=== PATIENT | female | born 1960 | race Caucasian/White ===

== ENCOUNTER → 2016-10-24 | Day surgery (SDC) | payer OTHER ==
[~2016-10-24] MED LIST: ACETAMINOPHEN 1000 MG/100 ML VIAL IV ONE; ACYC200C66 PO; ACYC5OIN4 TOPICAL; APREPITANT 40 MG CAP ONE; ARTIFICIAL TEARS OPTH OINT 3.5 APPLIC/3.5 GM TUBO ONE; BALANCED SALT SOLN OPHT IRRIG 15 ML BTL ONE; CIMZ200K SQ; DOXY100C PO; HYDR-3516 PO; HYDR200T3 PO; IBUP800T23 PO; LACTATED RINGER'S 1000 ML INJ 1,000 ML ONE; LIDOCAINE 1%/EPINEPHrine 1:100,000 SOLN 20 ML VIAL ONE; LIDOCAINE 2%/EPINEPHrine PF 1:200,000 20ML SDV ONE; LISD70 PO; METR500T10 PO; MIDAZOLAM HCL 2 MG/2 ML VIAL ONE; NEOMYCIN/POLYMYXIN/BACITRACIN OINT 15 GM TUBE ONE; NEOMYCIN/POLYMYXIN/HYDROCORT OTIC SUSP 10 ML BTL ONE; ONDANSETRON HCL 4 MG/2 ML VIAL IV PUSH ONE; PROPOFOL 200 MG/20 ML AMP IV ONE; SODIUM CHLORIDE 0.9% 250 ML ADDBAG IV ONE; VANCOMYCIN HCL 1000 MG VIAL ONE; diphenhydrAMINE HCL 50 MG/ML VIAL ONE
--- NOTE | 2016-10-24 09:54 | TN ---
cc: GARRET BRITO M.D. DATE OF SURGERY 10/24/2016 PREOPERATIVE DIAGNOSIS Facial aging POSTOPERATIVE DIAGNOSIS Facial aging PROCEDURE Cervicofacial rhytidectomy SURGEON Garret Brito MD ANESTHESIA LMA general plus total of 170 cc of diluted 1% lidocaine with epinephrine. ESTIMATED BLOOD LOSS Minima COMPLICATIONS None PROCEDURE She was properly consented, marked and properly anesthetized. The skin was sterilized with Microcyn, sterile draping applied. Local anesthetic was infused in the head and neck. pre and postauricular incisions were carried out down proximal to the preauricular area as well as the anterior border of the subplatysmal area and the base of the neck. SMAS plication was done in a true vertical fashion utilizing a running locking 4-0 Mersilene suture. Lateral platysmaplasty took place utilizing suture material. Excessive skin was removed with minimal tension after applying Chandana and the preauricular and postauricular wounds were closed in the following fashion. 5-0 Monocryl suture with fast-absorbing gut and 3-0 Monocryl sutures and surgical catherine on the postauricular area as well. Overall, the patient tolerated the procedure well. At the beginning of the procedure, I also injected one syringe of Voluma in the lip and in the perioral area. She tolerated the procedure well. We dressed with Ivonne and Phoenix, as well as netting. She was awakened and extubated in the operating room, transferred back to the postanesthesia care unit in stable condition. No complications appreciated. The patient tolerated the procedure fairly well. MD GILBERTO Tejeda/BAILEE /9:44 AM /9:51 AM
== END | disposition home or self-care (01) ==
LOC: ESDC 06:16
PROVIDERS: ATTEND Plastic Surgery
DX: Z41.1 Encounter for cosmetic surgery (principal)
CPT/HCPCS: 00300; 15828; J0131; J1200; J2250; J2405; J3010; J3370; J7120; J8501

== ENCOUNTER 2016-11-30 14:03 | Inpatient (IN) | payer OTHER ==
[~2016-11-30] VITALS: Ht 160 cm; Wt 90.2 kg
[~2016-11-30 14:03] MED LIST changes: -ACETAMINOPHEN 1000 MG/100 ML VIAL IV ONE; -APREPITANT 40 MG CAP ONE; -ARTIFICIAL TEARS OPTH OINT 3.5 APPLIC/3.5 GM TUBO ONE; -BALANCED SALT SOLN OPHT IRRIG 15 ML BTL ONE; -LACTATED RINGER'S 1000 ML INJ 1,000 ML ONE; -LIDOCAINE 1%/EPINEPHrine 1:100,000 SOLN 20 ML VIAL ONE; -LIDOCAINE 2%/EPINEPHrine PF 1:200,000 20ML SDV ONE; -MIDAZOLAM HCL 2 MG/2 ML VIAL ONE; -NEOMYCIN/POLYMYXIN/BACITRACIN OINT 15 GM TUBE ONE; -NEOMYCIN/POLYMYXIN/HYDROCORT OTIC SUSP 10 ML BTL ONE; -ONDANSETRON HCL 4 MG/2 ML VIAL IV PUSH ONE; -PROPOFOL 200 MG/20 ML AMP IV ONE; -SODIUM CHLORIDE 0.9% 250 ML ADDBAG IV ONE; -VANCOMYCIN HCL 1000 MG VIAL ONE; -diphenhydrAMINE HCL 50 MG/ML VIAL ONE
[2016-11-30 14:11] VITALS: BP 160/74; PULSE 81; RESP 20; TEMP 98.3; O2SAT 99
[2016-11-30] MEDS ORDERED: ONDANSETRON HCL 4 MG/2 ML VIAL IV PUSH ONE ×2 (14:15→15:15)
--- NOTE | 2016-11-30 14:20 | PD ---
HPI Chief Complaint: Hip Injury Time Seen by Provider: 14:10 Travel History International Travel<30 days: No Contact w/Intl Traveler<30days: No Traveled to known affect area: No History of Present Illness HPI 56-year-old female with chief complaint of right hip pain. Patient slipped and fell to the ground while standing in the back of the truck. She reports she fell onto her right side causing immediate pain within the right hip. Patient was unable to stand up. She called 911 for assistance. In route EMS administered 10 mg of morphine for pain control. Patient denies head injury or loss of consciousness. She denies headache, neck pain, chest pain, abdominal pain, numbness/tingling/weakness in the extremity. She reports normal sensation within the right lower extremity. [facility] Past Medical History ADD: Yes Arthritis: Yes (RA) Autoimmune Disease: Yes (LUPUS) Depression: Yes Cancer: No Cardiovascular Problems: No Diminished Hearing: No Endocrine: No Gastrointestinal Disorders: No Genitourinary: No Immune Disorder: Yes Implanted Vascular Access Dvce: No Neurologic: Yes Reproductive: No Respiratory: No ?: Not Past Surgical History Abdominal Surgery: Yes (APPY) Appendectomy: Yes Gynecologic Surgery: Yes (ABLATION, PARTIAL HYSTERECTOMY) Hysterectomy: Yes (PARTIAL) Other Surgery: Yes (uterine ablasion ) Social History Alcohol Use: Yes ("COUPLE MIXED DRINKS PER WEEK") Tobacco Use: No (E-CIG) Substance Use: No Allergies-Medications (Allergen,Severity, Reaction): Coded Allergies: Penicillin (Verified Allergy, Intermediate, "HEAD THROBS", 11/30/16) Reported Meds & Prescriptions Reported Meds & Active Scripts Active Vyvanse (Lisdexamfetamine Dimesylate) 70 Mg Cap 70 Mg PO DAILY Reported Hydroxychloroquine (Hydroxychloroquine Sulfate) 200 Mg Tab 200 Mg PO BID Takw with food Review of Systems Except as stated in HPI: all other systems reviewed are Neg General / Constitutional: No: Fever Eyes: No: Visual changes HENT: No: Headaches Cardiovascular: No: Chest Pain or Discomfort Respiratory: No: Shortness of Breath Gastrointestinal: No: Abdominal Pain Genitourinary: No: Dysuria Musculoskeletal: Positive: Pain, Other (right hip pain) Physical Exam Narrative GENERAL: Alert female lying on stretcher, mild distress due to pain. SKIN: Focused skin assessment warm/dry. HEAD: Atraumatic. Normocephalic. EYES: Pupils equal and round. No scleral icterus. No injection or drainage. ENT: No nasal bleeding or discharge. Mucous membranes pink and moist. NECK: Trachea midline. No JVD. CARDIOVASCULAR: Regular rate and rhythm. No murmur appreciated. RESPIRATORY: No accessory muscle use. Clear to auscultation. Breath sounds equal bilaterally. GASTROINTESTINAL: Abdomen soft, non-tender, nondistended. Hepatic and splenic margins not palpable. MUSCULOSKELETAL: No obvious deformities. No clubbing. No cyanosis. No edema. TTP right lateral hip. Pelvis is stable. 2+ pedal pulse, normal sensation of the dorsal aspect of foot, brisk cap refill. NEUROLOGICAL: Awake and alert. No obvious cranial nerve deficits. Motor grossly within normal limits. Normal speech. PSYCHIATRIC: Appropriate mood and affect; insight and judgment normal. Data Data Last Documented VS Vital Signs Date Time Temp Pulse Resp B/P Pulse Ox O2 Delivery O2 Flow Rate FiO2 11/30/16 18:55 20 11/30/16 16:09 68 146/67 100 Room Air 11/30/16 14:11 98.3 Orders Ondansetron Inj (Zofran Inj) (11/30/16 14:15) Hip, Uni(Ap&Lat) W Ap Pelvis (11/30/16 14:15) Iv Access Insert/Monitor (11/30/16 14:15) Oximetry (11/30/16 14:15) Sodium Chloride 0.9% Flush (Ns Flush) (11/30/16 14:15) Ondansetron Inj (Zofran Inj) (11/30/16 15:15) Metoclopramide Inj (Reglan Inj) (11/30/16 15:30) Femur (Ap & Lat/2vws) (11/30/16 ) Ct Hip W/O Contrast (11/30/16 ) Hydromorphone Pf Inj (Dilaudid Pf Inj) (11/30/16 16:15) Promethazine Inj (Phenergan Inj) (11/30/16 18:15) Complete Blood Count With Diff (11/30/16 18:10) Basic Metabolic Panel (Bmp) (11/30/16 18:10) Prothrombin Time / Inr (Pt) (11/30/16 18:10) Act Partial Throm Time (Ptt) (11/30/16 18:10) Ct Brain W/O Iv Contrast(Rout) (11/30/16 18:10) Sodium Chloride 0.9% Flush (Ns Flush) (11/30/16 18:15) Ua Includes Microscopic (11/30/16 18:11) Urinary Catheter Insert/Apply (11/30/16 18:11) Chest, Single Ap (11/30/16 ) MDM Medical Decision Making Medical Screen Exam Complete: Yes Emergency Medical Condition: Yes Differential Diagnosis hip fx, pelvic fx, contusion, Narrative Course 56-year-old female fell off the back of truck onto her right hip. Patient has chief complaint of right hip pain. Patient was brought in by EMS she was given 10 mg of morphine in route. Patient's physical exam reveal a neurovascularly intact extremity. No obvious deformity. X-ray of the right hip and pelvis are negative for fracture. During patient's stay she had multiple episodes of vomiting. She was given Zofran and Reglan. X-ray of the right hip and pelvis reveal no fracture the patient continued to have moderate to severe pain. CT scan of pelvis and right hip ordered. CT PELVIS/R HIP: 1.Acute fracture of the right sacrum 2. Nondisplaced fracture of the anterior column of the right acetabulum and right inferior pubic ramus and right symphysis pubis. 3. Nondisplaced fracture of the right transverse process of L5. Spoke with Dr. Becerril it service continuity supervisor ortho regarding patients fx. he asked the patient be kept nothing by mouth and admit her to medicine. Spoke with family residents Dr. Marti who agrees to patient admission. Diagnosis Primary Impression: Fracture of sacrum Qualified Code: S32.10XA - Closed fracture of sacrum, unspecified portion of sacrum, initial encounter Additional Impressions: Right acetabular fracture Qualified Code: S32.434A - Closed nondisplaced fracture of anterior column of right acetabulum, initial encounter L5 vertebral fracture Qualified Code: S32.059A - Closed fracture of fifth lumbar vertebra, unspecified fracture morphology, initial encounter Admitting Information Admitting Physician Requests: Admit Referrals: Primary Care Physician Disposition: 01 DISCHARGE HOME Condition: Stable Lola Moreno Nov 30, 2016 14:20
[2016-11-30] MEDS: SODIUM CHLORIDE 0.9% FLUSH 10 ML FLUSH IVF PRN ×3 (14:30→15:46)
[2016-11-30 14:37] VITALS: O2SAT 100
[2016-11-30 14:38] VITALS: BP 160/74; PULSE 76; RESP 24; O2SAT 100
--- NOTE | 2016-11-30 15:24 | RADRPT ---
EXAM DATE/TIME: 11/30/2016 15:00 [facility] COMPARISON: No previous studies available for comparison. INDICATIONS : Right hip pain. Patient fell off a flat-bed truck. MEDICAL HISTORY : None. SURGICAL HISTORY : None. ENCOUNTER: Initial ACUITY: 1 day PAIN SCORE: 10/10 LOCATION: Right hip. FINDINGS: No acute fracture or dislocation is noted. Mild degenerative changes and scoliosis of the lower lumb ar spine are noted. CONCLUSION: 1. No acute fracture or dislocation. 2. Mild degenerative changes and scoliosis of the lower lumbar spine. Truman Cohn MD on November 30, 2016 at 15:19 Board Certified Radiologist. This report was verified electronically.
[2016-11-30] MEDS ORDERED: METOCLOPRAMIDE HCL 10 MG/2 ML VIAL IV PUSH ONE (15:30)
[2016-11-30 16:09] VITALS: BP 146/67; PULSE 68; RESP 18; O2SAT 100
[2016-11-30] MEDS ORDERED: HYDROmorphone HCL PF 1 MG/ML VIAL IV PUSH ONE (16:15)
--- NOTE | 2016-11-30 17:15 | PD ---
Data Data Last Documented VS Vital Signs Date Time Temp Pulse Resp B/P Pulse Ox O2 Delivery O2 Flow Rate FiO2 11/30/16 16:09 68 18 146/67 100 Room Air 11/30/16 14:11 98.3 Orders Ondansetron Inj (Zofran Inj) (11/30/16 14:15) Hip, Uni(Ap&Lat) W Ap Pelvis (11/30/16 14:15) Iv Access Insert/Monitor (11/30/16 14:15) Oximetry (11/30/16 14:15) Sodium Chloride 0.9% Flush (Ns Flush) (11/30/16 14:15) Ondansetron Inj (Zofran Inj) (11/30/16 15:15) Metoclopramide Inj (Reglan Inj) (11/30/16 15:30) Femur (Ap & Lat/2vws) (11/30/16 ) Ct Hip W/O Contrast (11/30/16 ) Hydromorphone Pf Inj (Dilaudid Pf Inj) (11/30/16 16:15) MDM Supervised Visit with JAMES: Yes Narrative Course The history, exam, and medical decision-making in the associated midlevel provider note were completed with my assistance. I reviewed and agree with the findings presented. I attest that I had a [id number] encounter with the patient on the same day, and personally performed and documented my assessment and findings in the medical record. *My assessment and Findings: This is a 56-year-old female who presents the emergency department having fallen off of the back of a trailer and landed on her right hip. She has severe pain in the right hip. She is able to range the hip without much difficulty but she's in the emergency department vomiting and since her pain is 10 out of 10 despite analgesics and multiple doses of antiemetics. Given her intractable pain a CT and an x-ray of the femur were ordered. These will be followed up. If there reassuring I think the patient can be discharged home and likely suffered of a significant contusion. Diagnosis Primary Impression: Contusion, hip and thigh Qualified Code: S70.01XA - Contusion, hip and thigh, right, initial encounter Referrals: Primary Care Physician Additional Instruction: Take the pain medication as prescribed. Avoid heavy lifting or strenuous activity. Follow-up the primary care doctor. Return to the emergency department if he developed new or worsening symptoms. Disposition: 01 DISCHARGE HOME Condition: Stable Ivet Ruiz MD Nov 30, 2016 17:15
--- NOTE | 2016-11-30 17:34 | RADRPT ---
EXAM DATE/TIME: 11/30/2016 17:14 [facility] COMPARISON: CT HIP RIGHT W/O CONTRAST, November 30, 2016, 16:54. INDICATIONS : Right hip pain. Patient fell off a flat-bed truck. MEDICAL HISTORY : SURGICAL HISTORY : None. ENCOUNTER: Subsequent ACUITY: 1 day PAIN SCORE: 10/10 LOCATION: Right hip. FINDINGS: Two view examination of the right femur demonstrates no evidence of fracture or dislocation. Bony mi neralization is normal. The soft tissue structures are intact. CONCLUSION: No fracture seen. Bill Browning MD on November 30, 2016 at 17:30 Board Certified Radiologist. This report was verified electronically.
--- NOTE | 2016-11-30 17:46 | RADRPT ---
EXAM DATE/TIME: 11/30/2016 16:54 [facility] COMPARISON: HIP RIGHT (AP&LAT 2/3VWS) W AP PELVIS, November 30, 2016, 15:00. INDICATIONS : Fall from a moving truck today, right hip pain. RADIATION DOSE: 62.11 CTDIvol (mGy) MEDICAL HISTORY : lupus SURGICAL HISTORY : Hysterectomy. Appendectomy. ENCOUNTER: Initial ACUITY: 1 day PAIN SCALE: 9/10 LOCATION: Right hip TECHNIQUE: Volumetric scanning of the hip was performed. Using automated exposure control and adjustment of the mA and/or kV according to patient size, radiation dose was kept as low as reasonably achievable to o btain optimal diagnostic quality images. DICOM format image data is available electronically for rev iew and comparison. FINDINGS: There is evidence of acute fractures involving the right sacrum with a mildly displaced fracture frag ment involving the right anterior cortex. There is also evidence of acute nondisplaced fractures inv olving the anterior column of the right acetabulum as well as the right inferior pubic ramus. An acu te nondisplaced fracture involving the right symphysis pubis is also noted. There is also an acute f racture involving the right transverse process of L5. CONCLUSION: 1. Acute fracture involving the right sacrum with minimally displaced fracture fragment anteriorly. 2. Acute nondisplaced fractures involving the anterior column of the right acetabulum as well as the right inferior pubic ramus and right symphysis pubis. 3. Acute nondisplaced fracture involving the right transverse process of L5. Truman Cohn MD on November 30, 2016 at 17:28 Board Certified Radiologist. This report was verified electronically.
[2016-11-30] MEDS ORDERED: SODIUM CHLORIDE 0.9% FLUSH 10 ML FLUSH IVF PRN (18:15)
[2016-11-30] MEDS ORDERED: PROMETHAZINE INJ 25 MG/ML VIAL IM ONE (18:15)
--- NOTE | 2016-11-30 18:50 | RADRPT ---
EXAM DATE/TIME: 11/30/2016 18:33 [facility] COMPARISON: No previous studies available for comparison. INDICATIONS : Trauma; fall. RADIATION DOSE: 46.84 CTDIvol (mGy) MEDICAL HISTORY : Lupus. SURGICAL HISTORY : uterine ablation ENCOUNTER: Initial ACUITY: 1 day PAIN SCALE: 8/10 LOCATION: cranial TECHNIQUE: Multiple contiguous axial images were obtained of the head. Using automated exposure control and adj ustment of the mA and/or kV according to patient size, radiation dose was kept as low as reasonably a chievable to obtain optimal diagnostic quality images. DICOM format image data is available electro nically for review and comparison. FINDINGS: CEREBRUM: The ventricles are normal for age. No evidence of midline shift, mass lesion, hemorrhage or acute in farction. No extra-axial fluid collections are seen. POSTERIOR FOSSA: The cerebellum and brainstem are intact. The 4th ventricle is midline. The cerebellopontine angle i s unremarkable. EXTRACRANIAL: The visualized portion of the orbits is intact. SKULL: The calvaria is intact. No evidence of skull fracture. CONCLUSION: No acute disease. Truman Cohn MD on November 30, 2016 at 18:47 Board Certified Radiologist. This report was verified electronically.
[2016-11-30 19:04] VITALS: BP 165/70; PULSE 68; RESP 18; O2SAT 100
--- NOTE | 2016-11-30 19:09 | RADRPT ---
EXAM DATE/TIME: 11/30/2016 18:42 [facility] COMPARISON: No previous studies available for comparison. INDICATIONS : Trauma, Short of Breath MEDICAL HISTORY : Lupus. SURGICAL HISTORY : Uterine Ablation ENCOUNTER: Initial ACUITY: 1 day PAIN SCORE: 0/10 LOCATION: Bilateral chest FINDINGS: Frontal view of the chest demonstrates a 12 mm lobular smooth margin nodule projected over the right lower lung. This cannot be further localized on single view. Left lung is clear. The heart is norm al size. No evidence pneumothorax. Osseous structures are grossly intact. CONCLUSION: 12 mm nodule projected over the right lower lung. Recommend further characterization with CT thorax. Bill Browning MD on November 30, 2016 at 19:06 Board Certified Radiologist. This report was verified electronically.
--- NOTE | 2016-11-30 19:10 | PD ---
Physical Exam Narrative Patient was seen and examined with my assistant art director Data Data Last Documented VS Vital Signs Date Time Temp Pulse Resp B/P Pulse Ox O2 Delivery O2 Flow Rate FiO2 11/30/16 19:04 68 18 165/70 100 Room Air 11/30/16 14:11 98.3 Orders Ondansetron Inj (Zofran Inj) (11/30/16 14:15) Hip, Uni(Ap&Lat) W Ap Pelvis (11/30/16 14:15) Iv Access Insert/Monitor (11/30/16 14:15) Oximetry (11/30/16 14:15) Sodium Chloride 0.9% Flush (Ns Flush) (11/30/16 14:15) Ondansetron Inj (Zofran Inj) (11/30/16 15:15) Metoclopramide Inj (Reglan Inj) (11/30/16 15:30) Femur (Ap & Lat/2vws) (11/30/16 ) Ct Hip W/O Contrast (11/30/16 ) Hydromorphone Pf Inj (Dilaudid Pf Inj) (11/30/16 16:15) Promethazine Inj (Phenergan Inj) (11/30/16 18:15) Complete Blood Count With Diff (11/30/16 18:10) Basic Metabolic Panel (Bmp) (11/30/16 18:10) Prothrombin Time / Inr (Pt) (11/30/16 18:10) Act Partial Throm Time (Ptt) (11/30/16 18:10) Ct Brain W/O Iv Contrast(Rout) (11/30/16 18:10) Sodium Chloride 0.9% Flush (Ns Flush) (11/30/16 18:15) Ua Includes Microscopic (11/30/16 18:11) Urinary Catheter Insert/Apply (11/30/16 18:11) Chest, Single Ap (11/30/16 ) Admit Order (Ed Use Only) (11/30/16 19:05) [facility] Supervised Visit with JAMES: Yes Diagnosis Primary Impression: Fracture of sacrum Qualified Code: S32.10XA - Closed fracture of sacrum, unspecified portion of sacrum, initial encounter Additional Impressions: Right acetabular fracture Qualified Code: S32.434A - Closed nondisplaced fracture of anterior column of right acetabulum, initial encounter L5 vertebral fracture Qualified Code: S32.059A - Closed fracture of fifth lumbar vertebra, unspecified fracture morphology, initial encounter Referrals: Primary Care Physician Additional Instruction: Take the pain medication as prescribed. Avoid heavy lifting or strenuous activity. Follow-up the primary care doctor. Return to the emergency department if he developed new or worsening symptoms. Disposition: 01 DISCHARGE HOME Condition: Stable Karson Santamaria MD Nov 30, 2016 19:10
--- NOTE | 2016-11-30 19:17 | HHI.HP ---
[facility] Service Family Medicine Primary Care Physician Gage Sanchez MD Admission Diagnosis PELVIC FXS, L5 TRANSVERSE PROCESS FX Diagnoses: International Travel<30 Days: No Contact w/Intl Traveler<30days: No Known Affected Area: No History of Present Illness Salvador Ramos is a very pleasant 56 year old woman brought to the ED via EMS earlier today following a fall occurring ~14:00 today. She states she was standing in the trunk of a truck unloading equipment when she lost her balance and fell out of the truck onto the ground. She states she landed on her right hip and denies trauma to other parts of her body. She had immediate pain at the right hip. She denies head trauma or loss of consciousness. Her son states he did notice that she did not have anywhere to brace herself with the fall so her head may have hit the truck tire after landing on the ground. She states her pain was very significant and previously a 10/10. She was given 10 mg of morphine en route to the ED as well as 0.5 mg IV Dilaudid here in the ED. She states her pain is now 5-6/10 at the right hip. Denies pain elsewhere. Denies headaches, confusion, dizziness. She denies pain or weakness in any of her extremities. She is also reporting significant nausea. She was given Zofran 4 mg IV x2, Reglan 10 mg IV, and Phenergan 25 mg IM in the ED and reports her nausea is much improved but still present. She denies abdominal pain. A noncontrast head CT was obtained on presentation which shows no acute process. (Daniel Adkins MD R1) Review of Systems Constitutional: DENIES: Fever, Chills Eyes: DENIES: Blurred vision, Diplopia, Double Vision Respiratory: DENIES: Cough, Shortness of breath Cardiovascular: DENIES: Chest pain, Palpitations, Lower Extremity Edema Gastrointestinal: COMPLAINS OF: Nausea, DENIES: Abdominal pain Neurologic: DENIES: Headache, Localized weakness, Speech Problems (Daniel Adkins MD R1) Past Family Social History Past Medical History Rheumatoid arthritis SLE ADHD Depression Osteoarthritis Past Surgical History Partial hysterectomy Appendectomy Cervical ablation Bilateral foot surgery (Daniel Adkins MD R1) Allergies: Coded Allergies: Penicillin (Verified Allergy, Intermediate, "HEAD THROBS", 11/30/16) Family History Father: diabetes Mother: lung cancer Social History Tobacco: quit about 10 years ago, reports 30 year history of smoking previously Etoh intake: 0-2 drinks per day, usually wine Illicit drug use: denies (Daniel Adkins MD R1) Physical Exam Vital Signs Vital Signs Date Time Temp Pulse Resp B/P Pulse Ox O2 Delivery O2 Flow Rate FiO2 11/30/16 19:04 68 18 165/70 100 Room Air 11/30/16 18:55 20 11/30/16 16:09 68 18 146/67 100 Room Air 11/30/16 14:38 76 24 160/74 100 Room Air 11/30/16 14:37 100 Room Air 11/30/16 14:11 98.3 81 20 160/74 99 Physical Exam GENERAL: NAD, lying comfortably in bed NEURO: Alert. Normal speech. buttonhole tacker grossly intact. Motor grossly normal. SKIN: Warm and dry. No rashes or erythema. No bruising around hips. TTP around lateral aspect of right hip. No obvious deformities. HEAD: Normocephalic. Atraumatic. EYES: PERRL. EOMI. No scleral icterus. No injection or drainage. ENT: No nasal drainage. Moist mucous membranes. No oral ulcers or lesions. NECK: Supple, trachea midline. No JVD. CARDIOVASCULAR: Regular rate and rhythm without m/r/g. Peripheral pulses 2+. Cap refill < 2 seconds. RESPIRATORY: Breath sounds clear to auscultation and equal bilaterally, without w/r/r. No accessory muscle use. GASTROINTESTINAL: Abdomen soft, nontender, nondistended, normal BS. No organomegaly or masses. No rebound tenderness. No guarding. MUSCULOSKELETAL: No lower extremity edema. Normal range of motion. (Daniel Adkins MD R1) Imaging Last [address] 11/30/16 1810 Signed Impressions: Service Date/Time: Wednesday, November 30, 2016 18:33 - CONCLUSION: No acute disease. Truman Cohn MD Hip and Pelvis X-Ray 11/30/16 1415 Signed Impressions: Service Date/Time: Wednesday, November 30, 2016 15:00 - CONCLUSION: 1. No acute fracture or dislocation. 2. Mild degenerative changes and scoliosis of the lower lumbar spine. Truman Cohn MD Lower Extremity CT 11/30/16 0000 Signed Impressions: Service Date/Time: Wednesday, November 30, 2016 16:54 - CONCLUSION: 1. Acute fracture involving the right sacrum with minimally displaced fracture fragment anteriorly. 2. Acute nondisplaced fractures involving the anterior column of the right acetabulum as well as the right inferior pubic ramus and right symphysis pubis. 3. Acute nondisplaced fracture involving the right transverse process of L5. Truman Cohn MD Femur X-Ray 11/30/16 0000 Signed Impressions: Service Date/Time: Wednesday, November 30, 2016 17:14 - CONCLUSION: No fracture seen. Bill Browning MD (Daniel Adkins MD R1) Assessment and Plan Assessment and Plan 56 year old female presents following a traumatic fall found on CT to have fractures involving the right sacrum, acetabulum, pubic ramus, and nondisplaced fracture of transverse process of L5. Code Status Full code Discussed Condition With Dr. Holloway (Daniel Adkins MD R1) Problem List: (1) Fracture of sacrum Status: Acute Plan: - Orthopedic surgery consulted - Pain control with morphine 4 mg IV q3h prn pain 6-10, Dilaudid 0.5 mg IV q4h prn breakthrough - Keep NPO per orthopedic surgery - MIVF with NS at 115 cc/hr - Monitor I/Os (2) Hypokalemia Status: Resolved Plan: - K+ 3.1 on admission - Replete with KCl 40 mEq IV - Continue to monitor lytes (3) Hypertension Status: Acute Plan: - Pain likely contributing - Vasotec 1.25 mg IV q6h BP > 160/90 (4) Incidental lung nodule, greater than or equal to 8mm Status: Acute Plan: - CXR showing 12 mm nodule projected over the right lower lung - Obtain CT thorax for further characterization (5) Rheumatoid arthritis Status: Chronic Plan: Stable Resume home Plaquenil once taking PO (6) Lupus Status: Chronic Plan: Stable Resume home medications once taking PO (7) ADHD (attention deficit hyperactivity disorder) Status: Chronic Plan: Resume home Vyvanse once taking PO (8) Nutrition, metabolism, and development symptoms Status: Acute Plan: Fluids: NS at 115 cc/hr Electrolytes: replete K as above, continue to monitor Nutrition: NPO DVT ppx: b/l SCDs (Daniel Adkins MD R1) Physician Certification 2 Midnight Certification Type: Admission for Inpatient Services Order for Inpatient Services The services are ordered in accordance with Medicare regulations or non- Medicare payer requirements, as applicable. In the case of services not specified as inpatient-only, they are appropriately provided as inpatient services in accordance with the 2-midnight benchmark. Estimated LOS (days): 2 days is the estimated time the patient will need to remain in the hospital, assuming treatment plan goals are met and no additional complications. Post-Hospital Plan: Home (Daniel Adkins MD R1) Problem Qualifiers (1) Fracture of sacrum: Qualified Code: S32.10XA - Closed fracture of sacrum, unspecified portion of sacrum, initial encounter Daniel Adkins MD R1 Nov 30, 2016 19:17 Quinton Monge MD Dec 01, 2016 10:55
[2016-11-30 19:39] LABS: BLOOD, URINE NEG (NEG); COMMENT (UR) CATH; GLUCOSE,URINE NEG (NEG); KETONE, URINE 10 mg/dL (NEG); MUCUS URINE FEW /lpf (OCC); NITRITE,URINE NEG (NEG); PH, URINE 7.5 (5.0-8.5); SQUAMOUS EPITHELIAL CELL URINE 1 /hpf (0-5); URINE COLOR YELLOW (YELLW/STRAW)
[2016-11-30 19:45] LABS: AUTOMATED NEUTROPHIL # 8.1 TH/MM3 (1.8-7.7); BASOPHIL % 0.3 % (0.0-2.0); EOSINOPHIL % 0.1 % (0.0-4.0); HEMATOCRIT 37.8 % (35.0-46.0); HEMO FLAGS DIFF FINAL; LYMPH % 8.7 % (9.0-44.0); LYMPHOCYTE # 0.9 TH/MM3 (1.0-4.8); MEAN CELL VOLUME 95.6 FL (80.0-100.0); MEAN CORPUSCULAR HEMOGLOBIN 32.6 PG (27.0-34.0); MEAN CORPUSCULAR HGB CONC 34.2 % (32.0-36.0); MONO % 8.6 % (0.0-8.0); NEUT % 82.3 % (16.0-70.0); PLATELET COUNT 150 TH/MM3 (150-450); RED BLOOD COUNT 3.96 MIL/MM3 (4.00-5.30); RED CELL DISTRIBUTION WIDTH 13.1 % (11.6-17.2); WHITE BLOOD COUNT 9.9 TH/MM3 (4.0-11.0)
[2016-11-30] MEDS ORDERED: ONDANSETRON HCL 4 MG/2 ML VIAL IVP PRN (19:45)
[2016-11-30] MEDS ORDERED: BISACODYL 10 MG SUPP RECTAL PRN (19:45)
[2016-11-30] MEDS ORDERED: NALOXONE HCL 0.4 MG/ML AMP IV PRN (19:45)
[2016-11-30] MEDS ORDERED: LACTULOSE SYRUP 20 GM/30 ML CUP PO PRN (19:45)
[2016-11-30] MEDS ORDERED: HYDROmorphone HCL PF 1 MG/ML VIAL IV PUSH PRN (19:45)
[2016-11-30] MEDS ORDERED: MAGNESIUM HYDROXIDE SUSP 30 ML CUP PO PRN (19:45)
[2016-11-30] MEDS ORDERED: ENALAPRILAT 1.25 MG/ML VIAL IV PRN (19:45)
[2016-11-30] MEDS ORDERED: MORPHINE SULFATE 4 MG/ML INJ IV PUSH PRN ×2 (19:45)
[2016-11-30] MEDS ORDERED: SODIUM CHLORIDE 0.9% FLUSH 10 ML FLUSH IV FLUSH PRN (19:45)
[2016-11-30] MEDS ORDERED: SENNOSIDES 8.6 MG TAB PO PRN (19:45)
[2016-11-30 19:49] LABS: APTT (PATIENT) 23.6 SEC (24.3-30.1); PROTHROMBIN TIME - PATIENT 11.1 SEC (9.8-11.6)
[2016-11-30 20:00] LABS: BICARBONATE 19.5 MEQ/L (21.0-32.0); POTASSIUM 3.1 MEQ/L (3.5-5.1)
[2016-11-30] MEDS: SODIUM CHLOR 0.9% 1000 ML INJ 1,000 ML IV SCH (20:17)
--- NOTE | 2016-11-30 20:29 | RADRPT ---
EXAM DATE/TIME: 11/30/2016 20:02 [facility] COMPARISON: CHEST SINGLE AP, November 30, 2016, 18:42. INDICATIONS : Trauma; fall. Nodule seen on chest x-ray. RADIATION DOSE: 4.04 CTDIvol (mGy) MEDICAL HISTORY : Lupus. SURGICAL HISTORY : Hysterectomy. Appendectomy.Cholecystectomy. uterine ablation ENCOUNTER: Initial ACUITY: 1 day PAIN SCALE: 7/10 LOCATION: chest TECHNIQUE: Volumetric scanning of the chest was performed. Using automated exposure control and adjustment of t he mA and/or kV according to patient size, radiation dose was kept as low as reasonably achievable to obtain optimal diagnostic quality images. DICOM format image data is available electronically for r eview and comparison. Follow-up recommendations for incidentally detected pulmonary nodules are based at a minimum on nodul e size and patient risk factors according to Fleischner Society Guidelines. FINDINGS: LUNGS: There is a densely calcified nodule in the anterior right lower lung martiney bilobular shape and matthew sures 1.2 cm in width. This does correlate with the findings seen on chest x-ray. The remainder of the lungs are clear. PLEURAE: There is no pleural thickening or pleural effusion. MEDIASTINUM: There are several calcified lymph nodes in the subcarinal region (10 mm), right hilum (9 mm), anterio r right infrahilar (5 mm) AXILLAE: Within normal limits. No lymphadenopathy. MUSCULOSKELETAL: Within normal limits for patient age. CONCLUSION: Evidence of granulomatous disease with a calcified 12 mm pulmonary nodule the right lower lung and ca lcified nodes in the middle mediastinum and right hilum. Bill Browning MD on November 30, 2016 at 20:23 Board Certified Radiologist. This report was verified electronically.
[2016-11-30] MEDS: POTASSIUM CHLOR 20 MEQ PREMIX 100 ML IV SCH ×2 (20:36→22:28)
[2016-11-30] MEDS ORDERED: HYDROXYCHLOROQUINE SULFATE 200 MG TAB PO SCH (21:00)
[2016-11-30 21:30] VITALS: BP 137/68; PULSE 65; RESP 16; TEMP 96.6; O2SAT 97
[2016-11-30] MEDS: DOCUSATE SODIUM 50 MG/SENNA 8.6 MG TAB PO SCH (22:27)
[2016-11-30] MEDS: SODIUM CHLORIDE 0.9% FLUSH 10 ML FLUSH IV FLUSH SCH (22:28)
--- NOTE | 2016-11-30 22:32 | HHI.FPPN ---
Addendum to progress note ADDENDUM Reason for addendum: Additonal documentation Additional information Code status verified with patient. Patient verbally stated she would like to be full code. Daniel Adkins MD R1 Nov 30, 2016 22:32
[2016-12-01] VITALS (8 sets, daily range): BP systolic 100–140; BP diastolic 48–66; PULSE 72–87; RESP 16–18; TEMP 96.9–99.1; O2SAT 92–99
[2016-12-01] MEDS: PROMETHAZINE INJ 25 MG/ML VIAL IM PRN ×3 (03:18→17:15)
[2016-12-01] MEDS: SODIUM CHLOR 0.9% 1000 ML INJ 1,000 ML IV SCH ×2 (04:16→12:58)
[2016-12-01 06:11] LABS: AUTOMATED NEUTROPHIL # 3.6 TH/MM3 (1.8-7.7); BASOPHIL % 0.3 % (0.0-2.0); EOSINOPHIL % 0.7 % (0.0-4.0); HEMATOCRIT 37.7 % (35.0-46.0); HEMO FLAGS DIFF FINAL; LYMPH % 24.1 % (9.0-44.0); LYMPHOCYTE # 1.4 TH/MM3 (1.0-4.8); MEAN CELL VOLUME 95.3 FL (80.0-100.0); MEAN CORPUSCULAR HEMOGLOBIN 33.4 PG (27.0-34.0); NEUT % 61.9 % (16.0-70.0); PLATELET COUNT 130 TH/MM3 (150-450); RED BLOOD COUNT 3.95 MIL/MM3 (4.00-5.30); RED CELL DISTRIBUTION WIDTH 13.1 % (11.6-17.2); WHITE BLOOD COUNT 5.8 TH/MM3 (4.0-11.0)
[2016-12-01 06:45] LABS: BICARBONATE 23.6 MEQ/L (21.0-32.0); POTASSIUM 4.2 MEQ/L (3.5-5.1)
[2016-12-01] MEDS: DOCUSATE SODIUM 50 MG/SENNA 8.6 MG TAB PO SCH ×2 (08:44→19:53)
[2016-12-01] MEDS: SODIUM CHLORIDE 0.9% FLUSH 10 ML FLUSH IV FLUSH SCH ×2 (08:44→19:53)
[2016-12-01] MEDS ORDERED: PILL SPLITTER OTHER PRN (09:45)
[2016-12-01] MEDS ORDERED: ACETAMINOPHEN/HYDROcodone 325 MG/7.5 MG TAB PO PRN (10:15)
[2016-12-01] MEDS ORDERED: oxyCODONE/ACETAMINOPHEN 7.5 MG/325 MG TAB PO PRN (10:15)
[2016-12-01] MEDS ORDERED: MORPHINE SULFATE 4 MG/ML INJ IV PUSH PRN (10:15)
--- NOTE | 2016-12-01 10:54 | HHI.HP ---
[facility] Service Family Medicine Primary Care Physician Gage Sanchez MD Admission Diagnosis PELVIC FXS, L5 TRANSVERSE PROCESS FX Diagnoses: (1) Fracture of sacrum (2) Hypokalemia (3) Hypertension (4) Incidental lung nodule, greater than or equal to 8mm (5) Rheumatoid arthritis (6) Lupus (7) ADHD (attention deficit hyperactivity disorder) (8) Nutrition, metabolism, and development symptoms International Travel<30 Days: No Contact w/Intl Traveler<30days: No Known Affected Area: No History of Present Illness Patient complaining of worsening pain this morning, specifically in her left hip. She also has noticed some more bruising around her right hip. She denies any significant pain in other locations. She denies any lower tremor the swelling, she denies any lower extremity numbness/tingling, she denies any urinary issues such as incontinence or retention. She states that the pain medication is not helping significantly but does take the edge off for short time. In summary this is a 56-year-old female brought to the emergency department after a fall at home. She was unloading the bed of the truck with mulch and fell to the ground, landing directly on her right hip with immediate pain in the right hip region. She did not hit her head, she did not lose consciousness. He progressively got worse and was described as a 10 out of 10 on arrival. In the emergency department, CT scan of her hip showed acetabular fracture as well as pubic rami fracture on the right, CT scan of the thorax also showed a L5 spinous process fracture. Review of Systems Constitutional: DENIES: Diaphoretic episodes, Fever, Chills Respiratory: DENIES: Cough, Wheezing, Shortness of breath Cardiovascular: DENIES: Chest pain, Palpitations, Syncope Gastrointestinal: DENIES: Abdominal pain, Constipation, Nausea, Vomiting Musculoskeletal: COMPLAINS OF: Joint pain, Muscle aches, Stiffness, Joint Swelling, Back pain, Neck pain Integumentary: DENIES: Abnormal pigmentation Hematologic/lymphatic: COMPLAINS OF: Bruising Neurologic: COMPLAINS OF: Abnormal gait Past Family Social History Past Medical History Rheumatoid arthritis SLE ADHD Depression Osteoarthritis Past Surgical History Partial hysterectomy Appendectomy Cervical ablation Bilateral foot surgery Allergies: Coded Allergies: Penicillin (Verified Allergy, Intermediate, "HEAD THROBS", 11/30/16) Family History Father: diabetes Mother: lung cancer Social History Tobacco: quit about 10 years ago, reports 30 year history of smoking previously Etoh intake: 0-2 drinks per day, usually wine Illicit drug use: denies Physical Exam Vital Signs Vital Signs Date Time Temp Pulse Resp B/P Pulse Ox O2 Delivery O2 Flow Rate FiO2 12/01/16 08:00 98.7 76 18 129/53 92 12/01/16 04:00 96.9 77 16 118/48 98 12/01/16 00:00 96.9 87 17 140/55 99 11/30/16 21:30 96.6 65 16 137/68 97 11/30/16 19:04 68 18 165/70 100 Room Air 11/30/16 18:55 20 11/30/16 16:09 68 18 146/67 100 Room Air 11/30/16 14:38 76 24 160/74 100 Room Air 11/30/16 14:37 100 Room Air 11/30/16 14:11 98.3 81 20 160/74 99 Physical Exam GENERAL: female, lying comfortably in bed but appears to be in pain when moving NEURO: Alert. Normal speech. SKIN: Warm and dry. Ecchymosis overlying right greater trochanter. HEAD: Normocephalic. Atraumatic. NECK: Supple, trachea midline. No JVD. No pain with movement CARDIOVASCULAR: Regular rate and rhythm without m/r/g. Peripheral pulses 2+. Cap refill < 2 seconds. RESPIRATORY: Breath sounds clear to auscultation and equal bilaterally, without w/r/r. No accessory muscle use. GASTROINTESTINAL: Abdomen soft, nontender, nondistended MUSCULOSKELETAL: No lower extremity edema. Sensation intact into both feet Laboratory Laboratory Tests Test 11/30/16 11/30/16 12/01/16 19:00 19:05 05:30 White Blood Count 9.9 5.8 Red Blood Count 3.96 3.95 Hemoglobin 12.9 13.2 Hematocrit 37.8 37.7 Mean Corpuscular Volume 95.6 95.3 Mean Corpuscular Hemoglobin 32.6 33.4 Mean Corpuscular Hemoglobin 34.2 35.0 Concent Red Cell Distribution Width 13.1 13.1 Platelet Count 150 130 Mean Platelet Volume 8.5 8.5 Neutrophils (%) (Auto) 82.3 61.9 Lymphocytes (%) (Auto) 8.7 24.1 Monocytes (%) (Auto) 8.6 13.0 Eosinophils (%) (Auto) 0.1 0.7 Basophils (%) (Auto) 0.3 0.3 Neutrophils # (Auto) 8.1 3.6 Lymphocytes # (Auto) 0.9 1.4 Monocytes # (Auto) 0.8 0.8 Eosinophils # (Auto) 0.0 0.0 Basophils # (Auto) 0.0 0.0 CBC Comment DIFF FINAL DIFF FINAL Differential Comment Prothrombin Time 11.1 Prothromb Time International 1.0 Ratio Activated Partial 23.6 Thromboplast Time Sodium Level 141 141 Potassium Level 3.1 4.2 Chloride Level 111 111 Carbon Dioxide Level 19.5 23.6 Anion Gap 11 6 Blood Urea Nitrogen 16 17 Creatinine 0.62 0.61 Estimat Glomerular Filtration 100 101 Rate Random Glucose 119 94 Calcium Level 7.6 8.4 Urine Color YELLOW Urine Turbidity HAZY Urine pH 7.5 Urine Specific [place] 1.022 Urine Protein 30 Urine Glucose (UA) NEG Urine Ketones 10 Urine Occult Blood NEG Urine Nitrite NEG Urine Bilirubin NEG Urine Urobilinogen LESS THAN 2.0 Urine Leukocyte Esterase NEG Urine WBC 1 Urine Squamous Epithelial 1 Cells Urine Mucus FEW Microscopic Urinalysis Comment CATH Result Diagram: 12/01/16 0530 12/01/16 0530 Imaging Last [address] 11/30/16 1810 Signed Impressions: Service Date/Time: Wednesday, November 30, 2016 18:33 - CONCLUSION: No acute disease. Truman Cohn MD Hip and Pelvis X-Ray 11/30/16 1415 Signed Impressions: Service Date/Time: Wednesday, November 30, 2016 15:00 - CONCLUSION: 1. No acute fracture or dislocation. 2. Mild degenerative changes and scoliosis of the lower lumbar spine. Truman Cohn MD Lower Extremity CT 11/30/16 0000 Signed Impressions: Service Date/Time: Wednesday, November 30, 2016 16:54 - CONCLUSION: 1. Acute fracture involving the right sacrum with minimally displaced fracture fragment anteriorly. 2. Acute nondisplaced fractures involving the anterior column of the right acetabulum as well as the right inferior pubic ramus and right symphysis pubis. 3. Acute nondisplaced fracture involving the right transverse process of L5. Truman Cohn MD Femur X-Ray 11/30/16 0000 Signed Impressions: Service Date/Time: Wednesday, November 30, 2016 17:14 - CONCLUSION: No fracture seen. Bill Browning MD Assessment and Plan Assessment and Plan 56 year old female presents following a traumatic fall found on CT to have fractures involving the right sacrum, acetabulum, pubic ramus, and nondisplaced fracture of transverse process of L5. Problem List: (1) Fracture of sacrum Status: Acute Plan: Pain control transitioned to oral pain medication - [place] 7.5 mg every 4 hours as needed for pain 1-5 - Percocet 7.5 mg every 4 hours as needed for pain 6-10 - Morphine 4 mg IV every 4 hours for breakthrough pain Vitamin D level ordered and pending, if low we will begin vitamin D supplementation/replacement Physical therapy consult to evaluate patient and recommend home needs upon discharge Orthopedic surgery consulted for recommendations on ambulation and definitive management of fractures (2) L5 vertebral fracture Status: Acute Plan: Treatment as above for sacrum fracture (3) Right acetabular fracture Status: Acute Plan: Treatment as above for sacrum fracture (4) Hypertension Status: Acute Plan: Pain likely contributing - Vasotec 1.25 mg IV q6h BP > 160/90 (5) Hypokalemia Status: Resolved Plan: Repleted and repeat potassium 4.2 (6) Incidental lung nodule, greater than or equal to 8mm Status: Acute Plan: CXR showing 12 mm nodule projected over the right lower lung Subsequent CT of the thorax showed granulomatous disease with a calcified 12 mm pulmonary nodule in the right lower lung and calcified nodes in the middle mediastinum and right hilum. She can follow-up with her PCP for further monitoring (7) Rheumatoid arthritis Status: Chronic Plan: Stable Resume home Plaquenil once taking PO (8) Lupus Status: Chronic Plan: Stable Resume home medications (9) ADHD (attention deficit hyperactivity disorder) Status: Chronic Plan: Resume home Vyvanse (10) Nutrition, metabolism, and development symptoms Status: Acute Plan: Fluids: NS at 115 cc/hr Electrolytes: Monitor and replace as needed Nutrition: NPO DVT ppx: b/l SCDs Physician Certification 2 Midnight Certification Type: Admission for Inpatient Services Order for Inpatient Services The services are ordered in accordance with Medicare regulations or non- Medicare payer requirements, as applicable. In the case of services not specified as inpatient-only, they are appropriately provided as inpatient services in accordance with the 2-midnight benchmark. Estimated LOS (days): 2 2 days is the estimated time the patient will need to remain in the hospital, assuming treatment plan goals are met and no additional complications. Post-Hospital Plan: Not yet determined Problem Qualifiers (1) Fracture of sacrum: Qualified Code: S32.10XA - Closed fracture of sacrum, unspecified portion of sacrum, initial encounter (2) L5 vertebral fracture: Qualified Code: S32.059A - Closed fracture of fifth lumbar vertebra, unspecified fracture morphology, initial encounter (3) Right acetabular fracture: Qualified Code: S32.434A - Closed nondisplaced fracture of anterior column of right acetabulum, initial encounter Quinton Monge MD Dec 01, 2016 10:54
[2016-12-01] MEDS: CYCLOBENZAPRINE HCL 10 MG TAB PO PRN ×2 (11:07→19:52)
[2016-12-01] MEDS ORDERED: ACETAMINOPHEN/HYDROcodone 325 MG/5 MG TAB PO PRN (12:15)
[2016-12-01] MEDS: ACETAMINOPHEN/HYDROcodone 325 MG/10 MG TAB PO PRN ×3 (13:59→23:29)
[2016-12-01] MEDS: MORPHINE SULFATE 4 MG/ML INJ IV PUSH PRN ×2 (16:11→20:49)
--- NOTE | 2016-12-01 17:09 | PD.CONS ---
cc: Basim Becerril Jr., MD HPI Service Orthopedic Surgeons Consult Requested By Primary Care Physician Gage Sanchez MD Admission Diagnosis PELVIC FXS, L5 TRANSVERSE PROCESS FX Diagnoses: History of Present Illness 56-year-old female with history of rheumatoid arthritis fell from a truck on the ground sustaining injury to the hips and pelvic area. She was unloading the bed of the truck with mulch and fell to the ground, landing directly on her right hip with immediate pain and inability bear weight. In the emergency department, CT scan of her hip showed acetabular fracture as well as pubic rami fracture on the right, CT scan of the thorax also showed a L5 spinous process fracture. Denies any head injuries. Denies loss of consciousness. Currently patient's pain is sharp, localized in the right hip and accross lower back, 6 out of 10, exacerbated by any range of motion, relieved at rest and with IV pain medicine, pain is sharp nonradiating, not associated with any paresthesia and numbness to the lower extremity. ROS - General Review of Systems Constitutional: DENIES: Diaphoretic episodes, Fever, Chills Respiratory: DENIES: Cough, Wheezing, Shortness of breath Cardiovascular: DENIES: Chest pain, Palpitations, Syncope Gastrointestinal: DENIES: Abdominal pain, Constipation, Nausea, Vomiting Musculoskeletal: COMPLAINS OF: Joint pain, Muscle aches, Stiffness, Joint Swelling, Back pain, Neck pain Integumentary: DENIES: Abnormal pigmentation Hematologic/lymphatic: COMPLAINS OF: Bruising Neurologic: COMPLAINS OF: Abnormal gait PFSH Past Family Social History Past Medical History Rheumatoid arthritis SLE ADHD Depression Osteoarthritis Past Surgical History Partial hysterectomy Appendectomy Cervical ablation Bilateral foot surgery Allergies: Coded Allergies: Penicillin (Verified Allergy, Intermediate, "HEAD THROBS", 11/30/16) Family History Father: diabetes Mother: lung cancer Social History Tobacco: quit about 10 years ago, reports 30 year history of smoking previously Etoh intake: 0-2 drinks per day, usually wine Illicit drug use: denies Past Family Social History Allergies: Coded Allergies: Penicillin (Verified Allergy, Intermediate, "HEAD THROBS", 11/30/16) Active Ordered Medications Current Medications Medications (Trade) Dose Ordered Sig/Yeison Route Start Time Stop Time Status Last Admin (NS 1000 ml Inj) 1,000 ml @ 115 mls/hr [id number] IV 11/30/16 19:34 12/01/16 12:58 (NS Flush) 2 ml UNSCH PRN IV FLUSH 11/30/16 19:45 (NS Flush) 2 ml BID IV FLUSH 11/30/16 21:00 11/30/16 22:28 (Zofran Inj) 4 mg Q6H PRN IVP 11/30/16 19:45 11/30/16 22:27 (Narcan Inj) 0.4 mg UNSCH PRN IV 11/30/16 19:45 (Megan-Colace) 1 tab BID PO 11/30/16 21:00 11/30/16 22:27 (Milk Of Magnesia Liq) 30 ml Q12H PRN PO 11/30/16 19:45 (Senokot) 17.2 mg Q12H PRN PO 11/30/16 19:45 (Dulcolax Supp) 10 mg DAILY PRN RECTAL 11/30/16 19:45 (Lactulose Liq) 30 ml DAILY PRN PO 11/30/16 19:45 (Phenergan Inj) 25 mg Q6HR PRN IM 11/30/16 19:45 12/01/16 11:09 (Vasotec Inj) 1.25 mg Q6H PRN IV 11/30/16 19:45 (Flexeril) 5 mg Q8H PRN PO 12/01/16 10:00 12/01/16 11:07 (Pill Splitter) 1 ea UNSCH PRN OTHER 12/01/16 09:45 (Morphine Inj) 2 mg Q4HR PRN IV PUSH 12/01/16 12:15 12/01/16 16:11 ([place] 5-325 Mg) 1 tab Q4H PRN PO 12/01/16 12:15 ([place] 10-325 Mg) 1 tab Q4H PRN PO 12/01/16 12:15 12/01/16 13:59 Reported Meds & Active Scripts Active Vyvanse (Lisdexamfetamine Dimesylate) 70 Mg Cap 70 Mg PO DAILY Reported Hydroxychloroquine (Hydroxychloroquine Sulfate) 200 Mg Tab 200 Mg PO BID Takw with food Physical Exam Vital Signs Vital Signs Date Time Temp Pulse Resp B/P Pulse Ox O2 Delivery O2 Flow Rate FiO2 12/01/16 12:00 98.9 79 17 125/66 94 12/01/16 10:45 98 21 12/01/16 08:00 98.7 76 18 129/53 92 12/01/16 04:00 96.9 77 16 118/48 98 12/01/16 00:00 96.9 87 17 140/55 99 11/30/16 21:30 96.6 65 16 137/68 97 11/30/16 19:04 68 18 165/70 100 Room Air 11/30/16 18:55 20 Physical Exam Alert awake and oriented x 3. No acute distress. Head: NC/AT Neck: No pain with any range of motion and neck Pulmonary: Normal respiratory effort. Bilateral upper extremity: No deformities Intact sensation distally in median, ulnar, and radial nerve. Intact motor in anterior interosseous, posterior interosseous, and ulnar nerve. 2+ radial artery pulses. Good cap refill. RIGHT lower extremity: Tender palpation about the greater trochanter (R >L) as well as anterior pelvic brim. Tender palpation across the low back overlying bilateral SI areas. Full passive hip and knee range of motion. No deformity, grossly Neurovascularly intact, +EHL/FHL. + PT/DP pulses. Supple compartments. Negative Homans sign. LEFT lower extremity: Tender palpation about the greater trochanter. Tender palpation across the low back overlying bilateral SI areas. Full passive hip and knee range of motion. . No deformity, grossly Neurovascularly intact, +EHL/ FHL. + PT/DP pulses. Supple compartments. Negative Homans sign. Laboratory Laboratory Tests Test 11/30/16 11/30/16 12/01/16 19:00 19:05 05:30 White Blood Count 9.9 5.8 Red Blood Count 3.96 3.95 Hemoglobin 12.9 13.2 Hematocrit 37.8 37.7 Mean Corpuscular Volume 95.6 95.3 Mean Corpuscular Hemoglobin 32.6 33.4 Mean Corpuscular Hemoglobin 34.2 35.0 Concent Red Cell Distribution Width 13.1 13.1 Platelet Count 150 130 Mean Platelet Volume 8.5 8.5 Neutrophils (%) (Auto) 82.3 61.9 Lymphocytes (%) (Auto) 8.7 24.1 Monocytes (%) (Auto) 8.6 13.0 Eosinophils (%) (Auto) 0.1 0.7 Basophils (%) (Auto) 0.3 0.3 Neutrophils # (Auto) 8.1 3.6 Lymphocytes # (Auto) 0.9 1.4 Monocytes # (Auto) 0.8 0.8 Eosinophils # (Auto) 0.0 0.0 Basophils # (Auto) 0.0 0.0 CBC Comment DIFF FINAL DIFF FINAL Differential Comment Prothrombin Time 11.1 Prothromb Time International 1.0 Ratio Activated Partial 23.6 Thromboplast Time Sodium Level 141 141 Potassium Level 3.1 4.2 Chloride Level 111 111 Carbon Dioxide Level 19.5 23.6 Anion Gap 11 6 Blood Urea Nitrogen 16 17 Creatinine 0.62 0.61 Estimat Glomerular Filtration 100 101 Rate Random Glucose 119 94 Calcium Level 7.6 8.4 Urine Color YELLOW Urine Turbidity HAZY Urine pH 7.5 Urine Specific [place] 1.022 Urine Protein 30 Urine Glucose (UA) NEG Urine Ketones 10 Urine Occult Blood NEG Urine Nitrite NEG Urine Bilirubin NEG Urine Urobilinogen LESS THAN 2.0 Urine Leukocyte Esterase NEG Urine WBC 1 Urine Squamous Epithelial 1 Cells Urine Mucus FEW Microscopic Urinalysis Comment CATH 25-Hydroxy Vitamin D Total 23.3 Result Diagram: 12/01/16 0530 12/01/16 0530 Imaging Last [address] 11/30/16 1810 Signed Impressions: Service Date/Time: Wednesday, November 30, 2016 18:33 - CONCLUSION: No acute disease. Truman Cohn MD Hip and Pelvis X-Ray 11/30/16 1415 Signed Impressions: Service Date/Time: Wednesday, November 30, 2016 15:00 - CONCLUSION: 1. No acute fracture or dislocation. 2. Mild degenerative changes and scoliosis of the lower lumbar spine. Truman Cohn MD Lower Extremity CT 11/30/16 0000 Signed Impressions: Service Date/Time: Wednesday, November 30, 2016 16:54 - CONCLUSION: 1. Acute fracture involving the right sacrum with minimally displaced fracture fragment anteriorly. 2. Acute nondisplaced fractures involving the anterior column of the right acetabulum as well as the right inferior pubic ramus and right symphysis pubis. 3. Acute nondisplaced fracture involving the right transverse process of L5. Truman Cohn MD Femur X-Ray 11/30/16 0000 Signed Impressions: Service Date/Time: Wednesday, November 30, 2016 17:14 - CONCLUSION: No fracture seen. Bill Browning MD Chest X-Ray 11/30/16 0000 Signed Impressions: Service Date/Time: Wednesday, November 30, 2016 18:42 - CONCLUSION: 12 mm nodule projected over the right lower lung. Recommend further characterization with CT thorax. Bill Browning MD Chest CT 11/30/16 0000 Signed Impressions: Service Date/Time: Wednesday, November 30, 2016 20:02 - CONCLUSION: Evidence of granulomatous disease with a calcified 12 mm pulmonary nodule the right lower lung and calcified nodes in the middle mediastinum and right hilum. Bill Browning MD Assessment & Plan Assessment and Plan 56-year-old female with a history of rheumatoid arthritis presented to the emergency department after a fall off a truck sustaining injuries to her hips and pelvis. X-ray and CAT scan examination in the emergency department reveal L5 transverse process fracture, right impaction sacral alar fracture, right anterior wall acetabular fracture (nondisplaced), and right inferior rami fracture. On exam she is grossly neurovascularly intact with tenderness around the greater trochanters bilaterally and posterior SI joints. She has full passive range of motion of the hips and knees. Her hips are stable on exam. I expect her pain to slowly improve over the next few days. There is no need for any surgical intervention. Physical therapy for range of motion, gait imbalance training. Weightbearing as tolerated bilateral lower extremity. Follow-up 2 weeks outpatient. Basim Becerril Jr., MD Dec 01, 2016 17:09
[2016-12-02 03:30] VITALS: BP 141/65; PULSE 75; RESP 17; TEMP 98.4; O2SAT 94
[2016-12-02] MEDS: ACETAMINOPHEN/HYDROcodone 325 MG/10 MG TAB PO PRN ×5 (03:39→22:43)
[2016-12-02] MEDS: PROMETHAZINE INJ 25 MG/ML VIAL IM PRN ×3 (04:35→22:43)
[2016-12-02] MEDS: SODIUM CHLOR 0.9% 1000 ML INJ 1,000 ML IV SCH (06:22)
[2016-12-02 06:26] LABS: AUTOMATED NEUTROPHIL # 4.4 TH/MM3 (1.8-7.7); BASOPHIL # 0.1 TH/MM3 (0-0.2); BASOPHIL % 1.1 % (0.0-2.0); EOSINOPHIL # 0.1 TH/MM3 (0-0.4); EOSINOPHIL % 1.6 % (0.0-4.0); HEMATOCRIT 36.8 % (35.0-46.0); HEMO FLAGS DIFF FINAL; LYMPHOCYTE # 1.6 TH/MM3 (1.0-4.8); MEAN CELL VOLUME 95.3 FL (80.0-100.0); MEAN CORPUSCULAR HEMOGLOBIN 32.8 PG (27.0-34.0); MEAN CORPUSCULAR HGB CONC 34.4 % (32.0-36.0); MONO % 12.4 % (0.0-8.0); NEUT % 61.9 % (16.0-70.0); PLATELET COUNT 122 TH/MM3 (150-450); RED BLOOD COUNT 3.87 MIL/MM3 (4.00-5.30); RED CELL DISTRIBUTION WIDTH 13.2 % (11.6-17.2); WHITE BLOOD COUNT 7.1 TH/MM3 (4.0-11.0)
[2016-12-02 06:46] LABS: BICARBONATE 23.9 MEQ/L (21.0-32.0); POTASSIUM 3.5 MEQ/L (3.5-5.1)
[2016-12-02] MEDS: CYCLOBENZAPRINE HCL 10 MG TAB PO PRN ×2 (07:07→21:50)
[2016-12-02 07:34] VITALS: BP 136/63; PULSE 76; RESP 18; TEMP 97.2; O2SAT 94
[2016-12-02] MEDS: MORPHINE SULFATE 4 MG/ML INJ IV PUSH PRN (07:49)
[2016-12-02] MEDS: DOCUSATE SODIUM 50 MG/SENNA 8.6 MG TAB PO SCH ×2 (10:07→21:50)
[2016-12-02] MEDS: SODIUM CHLORIDE 0.9% FLUSH 10 ML FLUSH IV FLUSH SCH ×2 (10:08→21:51)
--- NOTE | 2016-12-02 10:55 | HHI.FPPN ---
Subjective Remarks No acute events overnight. Pt lying in bed. Reports pelvic and hip pain, but just received pain medicine from nurse. Afebrile. Vitals are within normal limits. Denies CP, SOB, and N/V. (Rebeka Holloway MD R1) Objective Vitals Vital Signs Date Time Temp Pulse Resp B/P Pulse Ox O2 Delivery O2 Flow Rate FiO2 12/02/16 07:34 97.2 76 18 136/63 94 12/02/16 03:30 98.4 75 17 141/65 94 12/01/16 23:00 98.0 74 17 131/63 93 12/01/16 19:30 99.1 77 17 122/57 93 12/01/16 16:00 98.6 77 18 136/57 93 12/01/16 12:00 98.9 79 17 125/66 94 I/O 12/01/16 12/01/16 12/01/16 12/02/16 12/02/16 12/02/16 07:00 15:00 23:00 07:00 15:00 23:00 Intake Total 480 ml 485 ml 720 ml 240 ml Output Total 500 ml 775 ml 550 ml Balance -20 ml 485 ml -55 ml -310 ml Intake Oral 480 ml 720 ml 240 ml IV Total 485 ml Output Urine Total 500 ml 775 ml 550 ml # Bowel Movements 0 0 (Rebeka Holloway MD R1) Result Diagram: 12/02/16 0522 12/02/16 0522 Imaging Last Impressions Head CT 11/30/16 1810 Signed Impressions: Service Date/Time: Wednesday, November 30, 2016 18:33 - CONCLUSION: No acute disease. Truman Cohn MD Hip and Pelvis X-Ray 11/30/16 1415 Signed Impressions: Service Date/Time: Wednesday, November 30, 2016 15:00 - CONCLUSION: 1. No acute fracture or dislocation. 2. Mild degenerative changes and scoliosis of the lower lumbar spine. Truman Cohn MD Lower Extremity CT 11/30/16 0000 Signed Impressions: Service Date/Time: Wednesday, November 30, 2016 16:54 - CONCLUSION: 1. Acute fracture involving the right sacrum with minimally displaced fracture fragment anteriorly. 2. Acute nondisplaced fractures involving the anterior column of the right acetabulum as well as the right inferior pubic ramus and right symphysis pubis. 3. Acute nondisplaced fracture involving the right transverse process of L5. Truman Cohn MD Femur X-Ray 11/30/16 0000 Signed Impressions: Service Date/Time: Wednesday, November 30, 2016 17:14 - CONCLUSION: No fracture seen. Bill Browning MD Chest X-Ray 11/30/16 0000 Signed Impressions: Service Date/Time: Wednesday, November 30, 2016 18:42 - CONCLUSION: 12 mm nodule projected over the right lower lung. Recommend further characterization with CT thorax. Bill Browning MD Chest CT 11/30/16 0000 Signed Impressions: Service Date/Time: Wednesday, November 30, 2016 20:02 - CONCLUSION: Evidence of granulomatous disease with a calcified 12 mm pulmonary nodule the right lower lung and calcified nodes in the middle mediastinum and right hilum. Bill Browning MD Objective Remarks GENERAL: lying comfortably in bed, complaining of pelvic pain NEURO: Alert. Normal speech. SKIN: Warm and dry. Ecchymosis overlying right greater trochanter. HEAD: Normocephalic. Atraumatic. NECK: Supple, trachea midline. No JVD. No pain with movement CARDIOVASCULAR: Regular rate and rhythm without m/r/g. Peripheral pulses 2+. Cap refill < 2 seconds. RESPIRATORY: Breath sounds clear to auscultation and equal bilaterally, without w/r/r. No accessory muscle use. GASTROINTESTINAL: Abdomen soft, nontender, nondistended MUSCULOSKELETAL: No lower extremity edema. Sensation intact into both feet (Rebeka Holloway MD R1) A/P Assessment and Plan 56 year old female presents following a traumatic fall found on CT to have fractures involving the right sacrum, acetabulum, pubic ramus, and nondisplaced fracture of transverse process of L5. Discharge Planning Home health PT, will follow up with ortho outpatient in 2 weeks (Rebeka Holloway MD R1) Attending Attestation Pt. examined and case discussed with resident physicians I have read the above note and agree with the assessment/plan as discussed with me I was involved in all medical decision making for this patient Patient cleared for discharge from orthopedic standpoint Unable tolerate weightbearing with physical therapy - Recommend placement at acute care [facility] for physical therapy Continue with pain control and case management consult for placement Quinton Monge MD (Quinton Monge MD) Problem List: (1) Fracture of sacrum Status: Acute Plan: -Orthopedics consulted, recs appreciated -no surgical intervention, home health PT, weight bearing as tolerated, follow up with ortho in 2 weeks Pain control transitioned to oral pain medication - [place] 7.5 mg every 4 hours as needed for pain 1-5 - Percocet 7.5 mg every 4 hours as needed for pain 6-10 - Morphine 4 mg IV every 4 hours for breakthrough pain -Ca low at 8.4 and 24-OH Vitamin D low at 13.0, we will begin vitamin D supplementation/replacement (2) L5 vertebral fracture Status: Acute Plan: Treatment as above for sacrum fracture (3) Right acetabular fracture Status: Acute Plan: Treatment as above for sacrum fracture (4) Hypertension Status: Acute Plan: Pain likely contributing - Vasotec 1.25 mg IV q6h BP > 160/90 (5) Hypokalemia Status: Resolved Plan: Potassium at 3.5 today -will continue to monitor and replete as necessary (6) Incidental lung nodule, greater than or equal to 8mm Status: Acute Plan: CXR showing 12 mm nodule projected over the right lower lung Subsequent CT of the thorax showed granulomatous disease with a calcified 12 mm pulmonary nodule in the right lower lung and calcified nodes in the middle mediastinum and right hilum. She can follow-up with her PCP for further monitoring (7) Rheumatoid arthritis Status: Chronic Plan: Stable Resume home Plaquenil once taking PO (8) Lupus Status: Chronic Plan: Stable Resume home medications (9) ADHD (attention deficit hyperactivity disorder) Status: Chronic Plan: Resume home Vyvanse (10) Nutrition, metabolism, and development symptoms Status: Acute Plan: Fluids: none Electrolytes: Monitor and replace as needed Nutrition: regular diet DVT ppx: b/l SCDs (Rebeka Holloway MD R1) Problem Qualifiers (1) Fracture of sacrum: Qualified Code: S32.10XA - Closed fracture of sacrum, unspecified portion of sacrum, initial encounter (2) L5 vertebral fracture: Qualified Code: S32.059A - Closed fracture of fifth lumbar vertebra, unspecified fracture morphology, initial encounter (3) Right acetabular fracture: Qualified Code: S32.434A - Closed nondisplaced fracture of anterior column of right acetabulum, initial encounter Rebeka Holloway MD R1 Dec 02, 2016 10:55 Quinton Monge MD Dec 02, 2016 16:37
[2016-12-02 12:00] VITALS: BP 138/54; PULSE 95; RESP 18; TEMP 98.3; O2SAT 95
[2016-12-02] MEDS ORDERED: HYDR-3516 PO (15:39)
[2016-12-02] MEDS ORDERED: CYCL1TAB29 PO (15:39)
[2016-12-02] MEDS ORDERED: SENN1TAB PO (15:39)
--- NOTE | 2016-12-02 15:40 | HHI.DCPOC ---
Discharge Care Plan Diagnosis: (1) Right acetabular fracture (2) L5 vertebral fracture (3) Fracture of sacrum Goals to Promote Your Health * To prevent worsening of your condition and complications * To maintain your health at the optimal level Directions to Meet Your Goals Take your medications as prescribed Follow your dietary instruction Follow activity as directed Keep your appointments as scheduled Take your immunizations and boosters as scheduled If your symptoms worsen call your PCP, if no PCP go to Urgent Care Center or Emergency Room Smoking is Dangerous to Your Health. Avoid second hand smoke Call the 24-hour hour crisis hotline for domestic abuse at Rebeka Holloway MD R1 Dec 02, 2016 15:40
--- NOTE | 2016-12-02 15:42 | HHI.FF ---
Face to Face Verification Diagnosis: (1) Fracture of sacrum (2) Right acetabular fracture (3) L5 vertebral fracture Physical Therapy Order: Evaluate and Treat, Improve ambulation, Strength and gait training Occupational Therapy Order: Evaluate and Treat, Improve ADL, Gross motor coordination Home Health Nursing Order: Medical education I have seen patient Salvador Ramos on 12/02/16. My clinical findings support the need for the requested home health care services because: Deconditioned w/ increased weakness High risk of falls I certify that my clinical findings support that this patient is homebound because: Unsteady gait/balance Rebeka Holloway MD R1 Dec 02, 2016 15:42
--- NOTE | 2016-12-02 15:42 | HHI.DS ---
Discharge Summary Admission Date Nov 30, 2016 at 19:08 Discharge Date: Dec 02, 2016 Admitting Diagnosis PELVIC FXS, L5 TRANSVERSE PROCESS FX (1) Fracture of sacrum Diagnosis: Principal Plan: -Orthopedics consulted, recs appreciated -no surgical intervention, home health PT, weight bearing as tolerated, follow up with ortho in 2 weeks Pain control transitioned to oral pain medication - Langford 7.5 mg every 4 hours as needed for pain 1-5 - Percocet 7.5 mg every 4 hours as needed for pain 6-10 - Morphine 4 mg IV every 4 hours for breakthrough pain -Ca low at 8.4 and 24-OH Vitamin D low at 13.0, we will begin vitamin D supplementation/replacement (2) L5 vertebral fracture Diagnosis: Principal Plan: Treatment as above for sacrum fracture (3) Right acetabular fracture Diagnosis: Principal Plan: Treatment as above for sacrum fracture (4) Hypertension Diagnosis: Secondary Plan: Pain likely contributing - Vasotec 1.25 mg IV q6h BP > 160/90 (5) Hypokalemia Diagnosis: Secondary Plan: Potassium at 3.5 today -will continue to monitor and replete as necessary (6) Incidental lung nodule, greater than or equal to 8mm Diagnosis: Secondary Plan: CXR showing 12 mm nodule projected over the right lower lung Subsequent CT of the thorax showed granulomatous disease with a calcified 12 mm pulmonary nodule in the right lower lung and calcified nodes in the middle mediastinum and right hilum. She can follow-up with her PCP for further monitoring (7) Rheumatoid arthritis Diagnosis: Secondary Plan: Stable Resume home Plaquenil once taking PO (8) Lupus Diagnosis: Secondary Plan: Stable Resume home medications (9) ADHD (attention deficit hyperactivity disorder) Diagnosis: Secondary Plan: Resume home Vyvanse (10) Nutrition, metabolism, and development symptoms Diagnosis: Secondary Plan: Fluids: none Electrolytes: Monitor and replace as needed Nutrition: regular diet DVT ppx: b/l SCDs [facility] Orthopedic, case management Procedures None Brief History Patient complaining of worsening pain this morning, specifically in her left hip. She also has noticed some more bruising around her right hip. She denies any significant pain in other locations. She denies any lower tremor the swelling, she denies any lower extremity numbness/tingling, she denies any urinary issues such as incontinence or retention. She states that the pain medication is not helping significantly but does take the edge off for short time. In summary this is a 56-year-old female brought to the emergency department after a fall at home. She was unloading the bed of the truck with mulch and fell to the ground, landing directly on her right hip with immediate pain in the right hip region. She did not hit her head, she did not lose consciousness. He progressively got worse and was described as a 10 out of 10 on arrival. In the emergency department, CT scan of her hip showed acetabular fracture as well as pubic rami fracture on the right, CT scan of the thorax also showed a L5 spinous process fracture. CBC/BMP: 12/02/16 0522 12/02/16 0522 Significant Findings Laboratory Tests Test 11/30/16 11/30/16 12/01/16 12/01/16 19:00 19:05 05:30 16:59 Red Blood Count 3.96 MIL/MM3 3.95 MIL/MM3 (4.00-5.30) (4.00-5.30) Neutrophils (%) (Auto) 82.3 % (16.0-70.0) Lymphocytes (%) (Auto) 8.7 % (9.0-44.0) Monocytes (%) (Auto) 8.6 % (0.0-8.0) 13.0 % (0.0-8.0) Neutrophils # (Auto) 8.1 TH/MM3 (1.8-7.7) Lymphocytes # (Auto) 0.9 TH/MM3 (1.0-4.8) Activated Partial 23.6 SEC Thromboplast Time (24.3-30.1) Potassium Level 3.1 MEQ/L (3.5-5.1) Chloride Level 111 MEQ/L 111 MEQ/L (98-107) (98-107) Carbon Dioxide Level 19.5 MEQ/L (21.0-32.0) Random Glucose 119 MG/DL (74-106) Calcium Level 7.6 MG/DL 8.4 MG/DL 8.2 MG/DL (8.5-10.1) (8.5-10.1) (8.5-10.1) Urine Turbidity HAZY (CLEAR) Urine Protein 30 mg/dL (NEG-TRACE) Urine Ketones 10 mg/dL (NEG) Urine Mucus FEW /lpf (OCC) Platelet Count 130 TH/MM3 (150-450) 25-Hydroxy Vitamin D Total 23.3 ng/ML 13.0 ng/ML (30-100) (30-100) Test 12/02/16 05:22 Red Blood Count 3.87 MIL/MM3 (4.00-5.30) Platelet Count 122 TH/MM3 (150-450) Monocytes (%) (Auto) 12.4 % (0.0-8.0) Random Glucose 118 MG/DL (74-106) Calcium Level 8.4 MG/DL (8.5-10.1) Imaging Last Impressions Head CT 11/30/16 1810 Signed Impressions: Service Date/Time: Wednesday, November 30, 2016 18:33 - CONCLUSION: No acute disease. Truman Cohn MD Hip and Pelvis X-Ray 11/30/16 1415 Signed Impressions: Service Date/Time: Wednesday, November 30, 2016 15:00 - CONCLUSION: 1. No acute fracture or dislocation. 2. Mild degenerative changes and scoliosis of the lower lumbar spine. Truman Cohn MD Lower Extremity CT 11/30/16 0000 Signed Impressions: Service Date/Time: Wednesday, November 30, 2016 16:54 - CONCLUSION: 1. Acute fracture involving the right sacrum with minimally displaced fracture fragment anteriorly. 2. Acute nondisplaced fractures involving the anterior column of the right acetabulum as well as the right inferior pubic ramus and right symphysis pubis. 3. Acute nondisplaced fracture involving the right transverse process of L5. Truman Cohn MD Femur X-Ray 11/30/16 0000 Signed Impressions: Service Date/Time: Wednesday, November 30, 2016 17:14 - CONCLUSION: No fracture seen. Bill Browning MD Chest X-Ray 11/30/16 0000 Signed Impressions: Service Date/Time: Wednesday, November 30, 2016 18:42 - CONCLUSION: 12 mm nodule projected over the right lower lung. Recommend further characterization with CT thorax. Bill Browning MD Chest CT 11/30/16 0000 Signed Impressions: Service Date/Time: Wednesday, November 30, 2016 20:02 - CONCLUSION: Evidence of granulomatous disease with a calcified 12 mm pulmonary nodule the right lower lung and calcified nodes in the middle mediastinum and right hilum. Bill Browning MD PE at Discharge GENERAL: lying comfortably in bed, complaining of pelvic pain NEURO: Alert. Normal speech. SKIN: Warm and dry. Ecchymosis overlying right greater trochanter. HEAD: Normocephalic. Atraumatic. NECK: Supple, trachea midline. No JVD. No pain with movement CARDIOVASCULAR: Regular rate and rhythm without m/r/g. Peripheral pulses 2+. Cap refill < 2 seconds. RESPIRATORY: Breath sounds clear to auscultation and equal bilaterally, without w/r/r. No accessory muscle use. GASTROINTESTINAL: Abdomen soft, nontender, nondistended MUSCULOSKELETAL: No lower extremity edema. Sensation intact into both feet Hospital Course Patient admitted on 11/30/16 for traumatic fall and found on CT to have fractures involving the right sacrum, acetabulum, pubic ramus, and nondisplaced fracture of transverse process of L5. Orthopedics consulted. No surgical intervention needed and recommended PT rehab. Patient found to have low Ca and Vitamine D. Patient was determined to be stable and was discharged to [facility] on 12/04/16. Recommended follow-up with PCP in 1 week, ortho in 2 weeks, and Vitamin D/Ca supplementation/replacement. Pt Condition on Discharge: Stable Discharge Disposition: Disch w/ Home Health Serv Discharge Instructions DIET: Follow Instructions for: As Tolerated, No Restrictions Activities you can perform: Weight Bearing as Levy Follow up Referrals: Orthopedics - 2 Weeks with Basim Becerril Jr., MD PCP Follow-up - 1 Week with [facility] New Medications: Calcium Carbonate (Antacid) (Calcium Carbonate Extra Strength) 750 Mg Chew 750 MG CHEW DAILY PRN HEARTBURN #30 Ref 0 TAB Cholecalciferol (Vitamin D3 Super Strength) 2,000 Unit Tab 2000 UNITS PO DAILY Nutritional Supplement #1 Ref 0 BOTTLE Cyclobenzaprine (Flexeril) 10 Mg Tab 5 MG PO Q8H PRN MUSCLE SPASM #62 TAB Hydrocodone-Acetaminophen (Hydrocodone-Acetaminophen) 5-325 mg Tab 1 TAB PO Q4H PRN pain #30 TAB Sennosides-Docusate Sodium (Senna Plus 8.6-50 mg) 1 Tab Tab 1 TAB PO BID #30 TAB Continued Medications: Hydroxychloroquine (Hydroxychloroquine) 200 Mg Tab 200 MG PO BID Takw with food #60 Ref 0 TAB Lisdexamfetamine (Vyvanse) 70 Mg Cap 70 MG PO DAILY #30 Ref 0 CAP Rebeka Holloway MD R1 Dec 02, 2016 15:42
[2016-12-02] MEDS ORDERED: CHOL1TAB31 PO (15:47)
[2016-12-02] MEDS ORDERED: CALC1CHW27 CHEW (15:48)
[2016-12-02] MEDS ORDERED: WALKER WHEELS/F1 MIS (15:49)
[2016-12-02] MEDS ORDERED: BEDSIDE COMMODE1 MI1 (15:50)
[2016-12-02] MEDS ORDERED: WHEEMIS3 (15:50)
[2016-12-02 16:00] VITALS: BP_SYST 100; BP_SYST 146; BP_DIAS 54; BP_DIAS 65; PULSE 66; PULSE 84; RESP 18; TEMP 97.7; TEMP 98.7; O2SAT 94; O2SAT 98
[2016-12-02 19:13] VITALS: BP 125/59; PULSE 74; RESP 18; TEMP 97.3; O2SAT 95
[2016-12-02 23:39] VITALS: BP 121/55; PULSE 85; RESP 18; TEMP 97.5; O2SAT 95
[2016-12-03] MEDS: ACETAMINOPHEN/HYDROcodone 325 MG/10 MG TAB PO PRN ×3 (02:50→12:44)
[2016-12-03] MEDS: PROMETHAZINE INJ 25 MG/ML VIAL IM PRN (07:54)
[2016-12-03 08:00] VITALS: BP 135/46; PULSE 80; RESP 16; TEMP 98.9; O2SAT 95
[2016-12-03 08:03] LABS: AUTOMATED NEUTROPHIL # 4.4 TH/MM3 (1.8-7.7); BASOPHIL % 0.3 % (0.0-2.0); EOSINOPHIL # 0.2 TH/MM3 (0-0.4); EOSINOPHIL % 2.9 % (0.0-4.0); HEMATOCRIT 37.1 % (35.0-46.0); HEMO FLAGS DIFF FINAL; LYMPH % 17.1 % (9.0-44.0); LYMPHOCYTE # 1.1 TH/MM3 (1.0-4.8); MEAN CELL VOLUME 94.2 FL (80.0-100.0); MEAN CORPUSCULAR HEMOGLOBIN 32.7 PG (27.0-34.0); MEAN CORPUSCULAR HGB CONC 34.7 % (32.0-36.0); MONO % 12.8 % (0.0-8.0); NEUT % 66.9 % (16.0-70.0); PLATELET COUNT 122 TH/MM3 (150-450); RED BLOOD COUNT 3.94 MIL/MM3 (4.00-5.30); RED CELL DISTRIBUTION WIDTH 12.8 % (11.6-17.2); WHITE BLOOD COUNT 6.6 TH/MM3 (4.0-11.0)
[2016-12-03 08:19] LABS: BICARBONATE 26.8 MEQ/L (21.0-32.0); POTASSIUM 3.6 MEQ/L (3.5-5.1)
[2016-12-03] MEDS: DOCUSATE SODIUM 50 MG/SENNA 8.6 MG TAB PO SCH (09:00)
[2016-12-03] MEDS: SODIUM CHLORIDE 0.9% FLUSH 10 ML FLUSH IV FLUSH SCH (09:12)
--- NOTE | 2016-12-03 10:33 | HHI.FPPN ---
Subjective Remarks No acute events overnight. Pt siting up in chair this morning. Complains of hip soreness. Michaud catheter will be removed this morning, patient agreed. Afebrile. No CP, SOB, N/V, and abdominal pain. (Rebeka Holloway MD R1) Objective Vitals Vital Signs Date Time Temp Pulse Resp B/P Pulse Ox O2 Delivery O2 Flow Rate FiO2 12/03/16 08:00 98.9 80 16 135/46 95 12/02/16 23:39 97.5 85 18 121/55 95 12/02/16 19:13 97.3 74 18 125/59 95 12/02/16 16:00 98.7 84 18 146/65 94 12/02/16 12:00 98.3 95 18 138/54 95 I/O 12/02/16 12/02/16 12/02/16 12/03/16 12/03/16 12/03/16 07:00 15:00 23:00 07:00 15:00 23:00 Intake Total 840 ml 480 ml 360 ml Output Total 950 ml 350 ml 350 ml Balance -110 ml 130 ml 10 ml Intake Oral 840 ml 480 ml 360 ml Output Urine Total 950 ml 350 ml 350 ml # Bowel Movements 0 0 0 (Rebeka Holloway MD R1) Result Diagram: 12/03/1614 12/03/1614 Imaging Last Impressions Head CT 11/30/16 1810 Signed Impressions: Service Date/Time: Wednesday, November 30, 2016 18:33 - CONCLUSION: No acute disease. Truman Cohn MD Hip and Pelvis X-Ray 11/30/16 1415 Signed Impressions: Service Date/Time: Wednesday, November 30, 2016 15:00 - CONCLUSION: 1. No acute fracture or dislocation. 2. Mild degenerative changes and scoliosis of the lower lumbar spine. Truman Cohn MD Lower Extremity CT 11/30/16 0000 Signed Impressions: Service Date/Time: Wednesday, November 30, 2016 16:54 - CONCLUSION: 1. Acute fracture involving the right sacrum with minimally displaced fracture fragment anteriorly. 2. Acute nondisplaced fractures involving the anterior column of the right acetabulum as well as the right inferior pubic ramus and right symphysis pubis. 3. Acute nondisplaced fracture involving the right transverse process of L5. Truman Cohn MD Femur X-Ray 11/30/16 0000 Signed Impressions: Service Date/Time: Wednesday, November 30, 2016 17:14 - CONCLUSION: No fracture seen. Bill Browning MD Chest X-Ray 11/30/16 0000 Signed Impressions: Service Date/Time: Wednesday, November 30, 2016 18:42 - CONCLUSION: 12 mm nodule projected over the right lower lung. Recommend further characterization with CT thorax. Bill Browning MD Chest CT 11/30/16 0000 Signed Impressions: Service Date/Time: Wednesday, November 30, 2016 20:02 - CONCLUSION: Evidence of granulomatous disease with a calcified 12 mm pulmonary nodule the right lower lung and calcified nodes in the middle mediastinum and right hilum. Blil Browning MD Objective Remarks GENERAL: sitting up in chair, complaining of pelvic pain NEURO: Alert. Normal speech. SKIN: Warm and dry. Ecchymosis overlying right greater trochanter. HEAD: Normocephalic. Atraumatic. NECK: Supple, trachea midline. No JVD. No pain with movement CARDIOVASCULAR: Regular rate and rhythm without m/r/g. Peripheral pulses 2+. Cap refill < 2 seconds. RESPIRATORY: Breath sounds clear to auscultation and equal bilaterally, without w/r/r. No accessory muscle use. GASTROINTESTINAL: Abdomen soft, nontender, nondistended MUSCULOSKELETAL: No lower extremity edema. Sensation intact into both feet (Rebeka Holloway MD R1) A/P Assessment and Plan 56 year old female presents following a traumatic fall found on CT to have fractures involving the right sacrum, acetabulum, pubic ramus, and nondisplaced fracture of transverse process of L5. Discharge Planning Rehab placement pending, will follow up with ortho outpatient in 2 weeks (Rebeka Holloway MD R1) Attending Attestation Patient examined and case discussed with resident physicians I have read the above note and agree with the assessment/plan as discussed with me I was involved in all medical decision making for this patient Quinton Monge M.D. (Quinton Monge MD) Problem List: (1) Fracture of sacrum Status: Acute Plan: -Orthopedics consulted, recs appreciated -no surgical intervention -case managment working on rehab placement PT -follow up with ortho in 2 weeks Pain control transitioned to oral pain medication - Cantril 7.5 mg every 4 hours as needed for pain 1-5 - Percocet 7.5 mg every 4 hours as needed for pain 6-10 - Morphine 4 mg IV every 4 hours for breakthrough pain -Ca low at 8.4 and 24-OH Vitamin D low at 13.0, we will begin vitamin D supplementation/replacement (2) L5 vertebral fracture Status: Acute Plan: Treatment as above for sacrum fracture (3) Right acetabular fracture Status: Acute Plan: Treatment as above for sacrum fracture (4) Hypertension Status: Acute Plan: Pain likely contributing - Vasotec 1.25 mg IV q6h BP > 160/90 (5) Hypokalemia Status: Resolved Plan: Potassium at 3.9 today -will continue to monitor and replete as necessary (6) Incidental lung nodule, greater than or equal to 8mm Status: Acute Plan: CXR showing 12 mm nodule projected over the right lower lung Subsequent CT of the thorax showed granulomatous disease with a calcified 12 mm pulmonary nodule in the right lower lung and calcified nodes in the middle mediastinum and right hilum. She can follow-up with her PCP for further monitoring (7) Rheumatoid arthritis Status: Chronic Plan: Stable Resume home Plaquenil once taking PO (8) Lupus Status: Chronic Plan: Stable Resume home medications (9) ADHD (attention deficit hyperactivity disorder) Status: Chronic Plan: Resume home Vyvanse (10) Nutrition, metabolism, and development symptoms Status: Acute Plan: Fluids: none Electrolytes: Monitor and replace as needed Nutrition: regular diet DVT ppx: b/l SCDs (Rebeka Holloway MD R1) Problem Qualifiers (1) Fracture of sacrum: Qualified Code: S32.10XA - Closed fracture of sacrum, unspecified portion of sacrum, initial encounter (2) L5 vertebral fracture: Qualified Code: S32.059A - Closed fracture of fifth lumbar vertebra, unspecified fracture morphology, initial encounter (3) Right acetabular fracture: Qualified Code: S32.434A - Closed nondisplaced fracture of anterior column of right acetabulum, initial encounter Rebeka Holloway MD R1 Dec 03, 2016 10:33 Quinton Monge MD Dec 03, 2016 13:57
[2016-12-03 12:00] VITALS: BP 107/50; PULSE 76; RESP 16; TEMP 97.5; O2SAT 95
[2016-12-03] MEDS: CYCLOBENZAPRINE HCL 10 MG TAB PO PRN (12:44)
[2016-12-03 13:50] VITALS: RESP 16
== END 2016-12-03 16:08 | DRG 551 ==
LOC: NEPD 14:03 → NEDA 19:08 → N06B 21:06
PROVIDERS: ADMIT Family Medicine; ATTEND Family Medicine
DX: S32.10XA Unspecified fracture of sacrum, initial encounter for closed fracture (principal); S32.411A Displaced fracture of anterior wall of right acetabulum, initial encounter for closed fracture; M32.9 Systemic lupus erythematosus, unspecified; S32.059A Unspecified fracture of fifth lumbar vertebra, initial encounter for closed fracture; M41.9 Scoliosis, unspecified; S32.591A Other specified fracture of right pubis, initial encounter for closed fracture; I10 Essential (primary) hypertension; E87.6 Hypokalemia; R91.1 Solitary pulmonary nodule; M06.9 Rheumatoid arthritis, unspecified; F90.9 Attention-deficit hyperactivity disorder, unspecified type; E88.9 Metabolic disorder, unspecified; S70.00XA Contusion of unspecified hip, initial encounter; Z87.891 Personal history of nicotine dependence; W17.89XA Other fall from one level to another, initial encounter; Y92.89 Other specified places as the place of occurrence of the external cause
CPT/HCPCS: 70450; 71010; 71250; 73502; 73552; 73700; 80048; 81001; 82306; 82310; 82652; 85025; 85610; 85730; 94150; 96372; 96374; 96375; 96376; J1170; J2270; J2405; J2550; J2765; J3480; J7030

== ENCOUNTER 2017-02-09 13:28 | Emergency (ER) | payer OTHER ==
[~2017-02-09] VITALS: Ht 172.7 cm; Wt 89.9 kg
[~2017-02-09 13:28] MED LIST changes: -ACYC200C66 PO; -ACYC5OIN4 TOPICAL; +CHOL1TAB31 PO; -CIMZ200K SQ; +COMMODE 3-IN-11 MIS; +CYCL1TAB29 PO; -DOXY100C PO; +GETGO ROLLING W1 MI1; -IBUP800T23 PO; -METR500T10 PO; +WHEEMIS3
[2017-02-09 13:33] VITALS: BP 165/71; PULSE 92; RESP 18; TEMP 98.8; O2SAT 97
[2017-02-09] MEDS ORDERED: IBUP800T23 PO (13:37)
[2017-02-09] MEDS ORDERED: ESTR1TAB PO (13:37)
--- NOTE | 2017-02-09 14:12 | PD ---
HPI Chief Complaint: Back/ Neck Pain or Injury Time Seen by Provider: 13:56 Travel History International Travel<30 days: No Contact w/Intl Traveler<30days: No Traveled to known affect area: No History of Present Illness HPI 56-year-old female here complaining of neck pain for 4 days. States she has seen her primary care physician and given muscle relaxers and pain medication but her pain still persists. Nothing seems to relieve her pain and movement increases her pain. No radiation of pain, described aching, and severe. She denies history of trauma, fever, IV drug use. She is concerned this is a more serious condition. History Past Medical Histgory Hx Cancer: No Hx Chemotherapy: No Hx Radiation Therapy: No Social History Alcohol Use: Yes ("COUPLE MIXED DRINKS PER WEEK") Tobacco Use: No (E-CIG) Allergies-Medications (Allergen,Severity, Reaction): Coded Allergies: penicillin G (Unverified Allergy, Intermediate, "HEAD THROBS", 02/09/17) Reported Meds & Prescriptions Reported Meds & Active Scripts Active Vyvanse (Lisdexamfetamine Dimesylate) 70 Mg Cap 70 Mg PO DAILY Hydrocodone-Acetaminophen 5-325 mg Tab 1 Tab PO Q6HR PRN Vitamin D3 Super Strength (Cholecalciferol) 2,000 Unit Tab 2,000 Units PO DAILY Flexeril (Cyclobenzaprine HCl) 10 Mg Tab 5 Mg PO Q8H PRN Reported Ibuprofen 800 Mg Tab 800 Mg PO Q8H PRN Estradiol 1 Mg Tab 1 Mg PO DAILY Hydroxychloroquine (Hydroxychloroquine Sulfate) 200 Mg Tab 200 Mg PO BID Takw with food Review of Systems Except as stated in HPI: all other systems reviewed are Neg Physical Exam Narrative GENERAL: Well-developed well-nourished SKIN: Focused skin assessment warm/dry. HEAD: Atraumatic. Normocephalic. EYES: Pupils equal and round. No scleral icterus. No injection or drainage. ENT: No nasal bleeding or discharge. Mucous membranes pink and moist. NECK: Supple, No meningeal signs. Trachea midline. No JVD or lymphadenopathy. TTP to paraspinal muscles from occiput to base of neck with accompanying muscle spasms. no midline TTP CARDIOVASCULAR: Regular rate and rhythm. No murmur appreciated. RESPIRATORY: No accessory muscle use. Clear to auscultation. Breath sounds equal bilaterally. MUSCULOSKELETAL: No obvious deformities. No clubbing. No cyanosis. No edema. NEUROLOGICAL: Awake and alert. No obvious cranial nerve deficits. Motor grossly within normal limits. Normal speech. Pulse motor sensory intact PSYCHIATRIC: Appropriate mood and affect; insight and judgment normal. Data Data Last Documented VS Vital Signs Date Time Temp Pulse Resp B/P (MAP) Pulse Ox O2 Delivery O2 Flow Rate FiO2 02/09/17 13:33 98.8 92 18 165/71 (102) 97 MDM Medical Screen Exam Complete: Yes Emergency Medical Condition: No Differential Diagnosis Muscle spasm of neck Narrative Course 56-year-old female with a 4 day history of nontraumatic neck pain. Seen by her primary care physician and prescribed muscle relaxers and pain medication with minimal relief. She denies any trauma, fever, chills, numbness, tingling Physical exam: Patient is ambulatory into the department in no apparent distress. She is without focal neurological deficits, no midline tenderness of spine No indication for MRI in the emergency department today. A medical screening exam was performed: At the time of evaluation the presenting medical condition was determined not to be of an emergent nature. The patient was given the option of receiving additional care, but declined. Patient was given options for additional community resources from which to obtain care. The Patient Has Been advised to seek medical attention for their presenting complaint. The patient has been advised to return to the ER at any time if an emergent condition develops. Primary Impression: Encounter for medical screening examination Disposition: 01 DISCHARGE HOME Condition: Stable Darleen Her Feb 09, 2017 14:12
[2017-02-19] MEDS ORDERED: MEDR4PAK PO (15:07)
== END 2017-02-09 14:41 | disposition left against medical advice (07) ==
LOC: PHEFT 13:28
DX: M54.2 Cervicalgia (principal)
CPT/HCPCS: 99281

== ENCOUNTER 2017-05-10 09:30 | Emergency (ER) | payer OTHER ==
[~2017-05-10] VITALS: Ht 172.7 cm; Wt 89.7 kg
[~2017-05-10 09:30] MED LIST changes: +CHOL1TAB29 PO; -CHOL1TAB31 PO; -COMMODE 3-IN-11 MIS; +CYCL10TA PO; -CYCL1TAB29 PO; +ESTR1TAB PO; -GETGO ROLLING W1 MI1; +IBUP1TAB7 PO; +MEDR4PAK PO; -WHEEMIS3
[2017-05-10 09:51] VITALS: BP 193/96; PULSE 83; RESP 16; TEMP 97.4; O2SAT 97
[2017-05-10] MEDS ORDERED: TETANUS/DIPHTHERIA TOXOID ADULT 0.5 ML VIAL IM ONE (10:15)
[2017-05-10] MEDS ORDERED: DOXY100C PO (11:01)
[2017-05-10] MEDS ORDERED: METR1TAB76 PO (11:01)
[2017-05-10] MEDS ORDERED: TRAM50TA PO (11:01)
--- NOTE | 2017-05-10 11:01 | PD ---
HPI Chief Complaint: Bite or Sting Time Seen by Provider: 10:11 Travel History International Travel<30 days: No Contact w/Intl Traveler<30days: No Traveled to known affect area: No History of Present Illness HPI Patient's 56-year-old female that presented to the emergency department evaluation of a dog bite to her right hand. Patient states that she was attempting to remove a paper towel from her dog's mouth when he bit her. Dog is up-to-date with immunizations. Patient reports pain is 8 out of 10, she denies any weakness, loss of function or numbness to her right hand and fingers. She is uncertain when her last tetanus vaccine was. Pain is exacerbated by movement, alleviated somewhat with rest. Onset was sudden. Pain is described as throbbing. She has no other complaints at this time. [facility] Past Medical History ADD: Yes Arthritis: Yes (RA) Asthma: No Autoimmune Disease: Yes (LUPUS) Anxiety: Yes Depression: Yes Heart Rhythm Problems: No Cancer: No Cardiovascular Problems: No High Cholesterol: No Chemotherapy: No Chest Pain: No Congestive Heart Failure: No COPD: No Cerebrovascular Accident: No Diabetes: No Diminished Hearing: No Endocrine: No Gastrointestinal Disorders: Yes GERD: Yes (on omeprazole) Genitourinary: No Headaches: No Hiatal Hernia: No Heparin Induced Thrombocytopen: No Hypertension: No Immune Disorder: Yes Implanted Vascular Access Dvce: No Kidney Stones: No Musculoskeletal: Yes Neurologic: Yes Psychiatric: Yes Reproductive: Yes (hx hysterectomy) Respiratory: No Migraines: No Radiation Therapy: No Renal Failure: No Seizures: No Sickle Cell Disease: No Sleep Apnea: Yes (pt reports she has) Thyroid Disease: No Ulcer: No Tetanus Vaccination: Unknown ?: Not Past Surgical History Abdominal Surgery: Yes (APPY) AICD: No Appendectomy: Yes Arteriovenous Shunt: No Cardiac Surgery: No Ear Surgery: No Endocrine Surgery: No Eye Surgery: No Genitourinary Surgery: Yes Gynecologic Surgery: Yes (ABLATION, PARTIAL HYSTERECTOMY) Hysterectomy: Yes Insulin Pump: No Joint Replacement: No Neurologic Surgery: No Oral Surgery: No Pacemaker: No Thoracic Surgery: No Other Surgery: Yes (uterine ablasion ) Social History Alcohol Use: Yes (occ) Tobacco Use: No Substance Use: No Allergies-Medications (Allergen,Severity, Reaction): Coded Allergies: penicillin G (Unverified Allergy, Intermediate, "HEAD THROBS", 05/10/17) Reported Meds & Prescriptions Reported Meds & Active Scripts Active Tramadol (Tramadol HCl) 50 Mg Tab 50 Mg PO Q4H PRN Metronidazole 500 Mg Tab 500 Mg PO TID 10 Days Doxycycline Hyclate 100 Mg Cap 100 Mg PO BID Vyvanse (Lisdexamfetamine Dimesylate) 70 Mg Cap 70 Mg PO DAILY Reported Ibuprofen 800 Mg Tab 800 Mg PO Q8H PRN Estradiol 1 Mg Tab 1 Mg PO DAILY Hydroxychloroquine (Hydroxychloroquine Sulfate) 200 Mg Tab 200 Mg PO BID Takw with food Review of Systems Except as stated in HPI: all other systems reviewed are Neg Skin: Positive Other (lacerations) Physical Exam Narrative GENERAL: Well-developed, well-nourished, alert female. Appears uncomfortable, in no acute distress. SKIN: Warm and dry. 4 cm laceration to the dorsal aspect of the right hand over the second and third MCP's. There is a 1 cm laceration to the first finger on the palmar aspect of the right hand. There are 2 superficial abrasions to the right first finger on the lateral aspect. Full range of motion in right hand and fingers. Base of wound is well visualized, there is no tendon injury appreciated. HEAD: Normocephalic. EYES: No scleral icterus. No injection or drainage. NECK: Supple, trachea midline. No JVD or lymphadenopathy. CARDIOVASCULAR: Regular rate and rhythm without murmurs, gallops, or rubs. RESPIRATORY: Breath sounds equal bilaterally. No accessory muscle use. GASTROINTESTINAL: Abdomen soft, non-tender, nondistended. MUSCULOSKELETAL: No cyanosis, or edema. BACK: Nontender without obvious deformity. No CVA tenderness. Data Data Last Documented VS Vital Signs Date Time Temp Pulse Resp B/P (MAP) Pulse Ox O2 Delivery O2 Flow Rate FiO2 05/10/17 09:51 97.4 83 16 193/96 (128) 97 Orders Orders Tetanus/Diphtheria Tox Adult (Tetanus/Di (05/10/17 10:15) Ed Discharge Order (05/10/17 11:01) MDM Medical Decision Making Medical Screen Exam Complete: Yes Emergency Medical Condition: Yes Interpretation(s) Vital Signs Date Time Temp Pulse Resp B/P (MAP) Pulse Ox O2 Delivery O2 Flow Rate FiO2 05/10/17 09:51 97.4 83 16 193/96 (291) 00 Differential Diagnosis Laceration versus abrasion versus tendon injury versus cellulitis versus bite versus other Narrative Course Patient is a 56-year-old female presenting for evaluation of a dog bite. Patient was bitten by her own dog was up-to-date with immunizations. Patient's tetanus erythema be updated today. Patient's vital signs are stable. Please see procedure report for laceration repairs. Patient is allergic to penicillin. She will be provided with a prescription for doxycycline and metronidazole. She was also given a prescription for short course of oral narcotic pain medication. She is advised not to drive or operate machinery while taking narcotic pain medication. She was educated on the signs and symptoms of infection. Patient verbalized understanding of instructions. Patient was advised to keep wound clean and dry, sutures would be removed in 10 days. Patient is stable for discharge. Procedures Procedure Narrative lLACERATION LOCATION: Right hand on the dorsal aspect over the second and third MCP LENGTH: Or centimeters NUMBER OF STITCHES/[place]: 6 REPAIR: The area of the laceration was prepped with Betadine and sterilely draped. The laceration was infiltrated with 1% lidocaine with epi. The wound was copiously irrigated and explored without evidence of foreign body, tendon injury or neurovascular injury. The wound was closed using 4-0 Ethilon. This was a 1 layer repair. A sterile dressing was applied. The patient was advised to keep the dressing clean and dry. Patient tolerated the procedure well. LACERATION LOCATION: First finger space on the palmar aspect of the right hand. LENGTH: 1 cm NUMBER OF STITCHES/[place]: 2] REPAIR: The area of the laceration was prepped with Betadine and sterilely draped. The laceration was infiltrated with 1% lidocaine with epi. The wound was copiously irrigated and explored without evidence of foreign body, tendon injury or neurovascular injury. The wound was closed using 5-0 Ethilon. This was a 1 layer repair. A sterile dressing was applied. The patient was advised to keep the dressing clean and dry. Patient tolerated the procedure well. Diagnosis Primary Impression: Dog bite Qualified Codes: W54.0XXA - Bitten by dog, initial encounter Referrals: Primary Care Physician 3 days Patient Instructions: Animal Bite (ED), Care For Your Stitches (ED), General Instructions Additional Instructions: Follow-up with your primary doctor Stitches will need to be removed in 10 days, you can return to emergency department or follow-up with her primary doctor Complete Full course of antibiotics as prescribed Return to emergency department immediately for any new or worsening symptoms or signs of infection as discussed Keep stitches clean and dry, cover with non-occlusive dressing if there is a chance of soiling or leave open to air, do not submerge hand in water until stitches are removed and wound is completely healed Med/Other Pt SpecificInfo: Prescription(s) given Scripts Tramadol (Tramadol) 50 Mg Tab 50 MG PO Q4H Y for PAIN, #12 TAB 0 Refills Prov: Mary Moura 05/10/17 Metronidazole (Metronidazole) 500 Mg Tab 500 MG PO TID for Infection for 10 Days, TAB 0 Refills Prov: Mary Moura 05/10/17 Doxycycline Hyclate (Doxycycline Hyclate) 100 Mg Cap 100 MG PO BID for Infection, #20 CAP 0 Refills Prov: Mary Moura 05/10/17 Disposition: 01 DISCHARGE HOME Condition: Stable Mary Moura May 10, 2017 11:01
[2017-05-23] MEDS ORDERED: NORC5TAB PO (13:46)
== END 2017-05-10 11:10 | disposition home or self-care (01) ==
LOC: PHEFT 09:30
DX: S61.451A Open bite of right hand, initial encounter (principal); W54.0XXA Bitten by dog, initial encounter; M32.9 Systemic lupus erythematosus, unspecified; F32.9 Major depressive disorder, single episode, unspecified; F41.9 Anxiety disorder, unspecified; K21.9 Gastro-esophageal reflux disease without esophagitis; Z23 Encounter for immunization
CPT/HCPCS: 12002; 90471; 90714

== ENCOUNTER 2017-05-14 16:03 | Inpatient (IN) | payer OTHER ==
[~2017-05-14] VITALS: Ht 172.7 cm; Wt 84.0 kg
[~2017-05-14 16:03] MED LIST changes: -CHOL1TAB29 PO; -CYCL10TA PO; +DOXY100C PO; -HYDR-3516 PO; -MEDR4PAK PO; +METR1TAB76 PO; +TRAM50TA PO
[2017-05-14 16:05] VITALS: BP 171/83; PULSE 80; RESP 18; TEMP 98.7; O2SAT 98
--- NOTE | 2017-05-14 17:25 | RADRPT ---
EXAM DATE/TIME: 05/14/2017 17:05 [place] COMPARISON: No previous studies available for comparison. INDICATIONS : Right hand dog bite, laceration and inflammation. MEDICAL HISTORY : None. SURGICAL HISTORY : None. ENCOUNTER: Initial ACUITY: 4 - 6 days PAIN SCORE: 6/10 LOCATION: Right hand, 2nd and 3rd digits. FINDINGS: Three view examination of the right hand demonstrates no dislocation or fracture. There is soft tissu e swelling overlying the dorsal aspect of the hand. No significant radiopaque foreign body or subcuta neous emphysema. The carpal bones appear intact. The interphalangeal and metacarpophalangeal joints are intact. Bony mineralization is normal. CONCLUSION: 1. No acute fracture or dislocation. No radiopaque foreign bodies or significance subcutaneous emphys crispin. Augustine Leblanc MD on May 14, 2017 at 17:21 Board Certified Radiologist. This report was verified electronically.
[2017-05-14 18:52] LABS: AUTOMATED NEUTROPHIL # 2.8 TH/MM3 (1.8-7.7); BASOPHIL % 0.6 % (0.0-2.0); EOSINOPHIL # 0.1 TH/MM3 (0-0.4); EOSINOPHIL % 2.4 % (0.0-4.0); LYMPH % 31.9 % (9.0-44.0); LYMPHOCYTE # 1.6 TH/MM3 (1.0-4.8); MEAN CORPUSCULAR HEMOGLOBIN 32.1 PG (27.0-34.0); MEAN CORPUSCULAR HGB CONC 34.9 % (32.0-36.0); MEAN PLATELET VOLUME 8.3 FL (7.0-11.0); MONO % 11.4 % (0.0-8.0); MONOCYTE # 0.6 TH/MM3 (0-0.9); NEUT % 53.7 % (16.0-70.0); PLATELET COUNT 235 TH/MM3 (150-450); RED BLOOD COUNT 4.35 MIL/MM3 (4.00-5.30); RED CELL DISTRIBUTION WIDTH 12.5 % (11.6-17.2); WHITE BLOOD COUNT 5.1 TH/MM3 (4.0-11.0)
[2017-05-14 19:02] LABS: ALBUMIN 3.8 GM/DL (3.4-5.0); AST (GOT) 15 U/L (15-37); BICARBONATE 24.6 MEQ/L (21.0-32.0); BLOOD UREA NITROGEN 20 MG/DL (7-18); CALCIUM 8.9 MG/DL (8.5-10.1); CHLORIDE 106 MEQ/L (98-107); CREATININE 0.58 MG/DL (0.50-1.00); GLOMERULAR FILTRATION RATE 108 ML/MIN (>89); GLUCOSE,RANDOM 92 MG/DL (74-106); SODIUM (NA) 138 MEQ/L (136-145)
[2017-05-14 19:03] LABS: ALT (GPT) 23 U/L (10-53); C-REACTIVE PROTEIN 0.49 MG/DL (0.00-0.30)
[2017-05-14 19:05] LABS: ALKALINE PHOSPHATASE 91 U/L (45-117); TOTAL BILIRUBIN ADULT 0.4 MG/DL (0.2-1.0); TOTAL PROTEIN 7.4 GM/DL (6.4-8.2)
--- NOTE | 2017-05-14 20:55 | PD ---
HPI . Dog bite Chief Complaint: Skin Problem Time Seen by Provider: 20:49 Travel History International Travel<30 days: No Contact w/Intl Traveler<30days: No Traveled to known affect area: No History of Present Illness HPI Patient triaged to room 25. 8:50 PM 56-year-old female referred to [facility] from her doctor secondary to a dog bite to the right hand patient incurred 2 days ago, notes increased pain tenderness swelling with redness of her hand and proximal red streaking up her arm. Patient denies having any fevers. Denies weakness numbness or tingling. PFSH Past Medical History Narrative Medical Past medical history reviewed ADD: Yes Arthritis: Yes (RA) Asthma: No Autoimmune Disease: Yes (LUPUS) Anxiety: Yes Depression: Yes Heart Rhythm Problems: No Cancer: No Cardiovascular Problems: No High Cholesterol: No Chemotherapy: No Chest Pain: No Congestive Heart Failure: No COPD: No Cerebrovascular Accident: No Diabetes: No Diminished Hearing: No Endocrine: No Gastrointestinal Disorders: Yes GERD: Yes (on omeprazole) Genitourinary: No Headaches: No Hiatal Hernia: No Heparin Induced Thrombocytopen: No Hypertension: No Immune Disorder: Yes Implanted Vascular Access Dvce: No Kidney Stones: No Musculoskeletal: Yes Neurologic: Yes Psychiatric: Yes Reproductive: Yes (hx hysterectomy) Respiratory: No Migraines: No Radiation Therapy: No Renal Failure: No Seizures: No Sickle Cell Disease: No Sleep Apnea: Yes (pt reports she has) Thyroid Disease: No Ulcer: No Past Surgical History Abdominal Surgery: Yes (APPY) AICD: No Appendectomy: Yes Arteriovenous Shunt: No Cardiac Surgery: No Ear Surgery: No Endocrine Surgery: No Eye Surgery: No Genitourinary Surgery: Yes Gynecologic Surgery: Yes (ABLATION, PARTIAL HYSTERECTOMY) Hysterectomy: Yes Insulin Pump: No Joint Replacement: No Neurologic Surgery: No Oral Surgery: No Pacemaker: No Thoracic Surgery: No Other Surgery: Yes (uterine ablasion ) Social History Alcohol Use: Yes (occ) Tobacco Use: No Substance Use: No Allergies-Medications (Allergen,Severity, Reaction): Coded Allergies: penicillin G (Unverified Allergy, Intermediate, "HEAD THROBS", 05/14/17) Reported Meds & Prescriptions Reported Meds & Active Scripts Active Tramadol (Tramadol HCl) 50 Mg Tab 50 Mg PO Q4H PRN Metronidazole 500 Mg Tab 500 Mg PO TID 10 Days Doxycycline Hyclate 100 Mg Cap 100 Mg PO BID Vyvanse (Lisdexamfetamine Dimesylate) 70 Mg Cap 70 Mg PO DAILY Reported Ibuprofen 800 Mg Tab 800 Mg PO Q8H PRN Estradiol 1 Mg Tab 1 Mg PO DAILY Hydroxychloroquine (Hydroxychloroquine Sulfate) 200 Mg Tab 200 Mg PO BID Takw with food Narrative Medication Allergies and medications reviewed Review of Systems General / Constitutional: No: Fever Eyes: No: Visual changes HENT: No: Headaches Cardiovascular: No: Chest Pain or Discomfort Respiratory: No: Shortness of Breath Gastrointestinal: No: Abdominal Pain Genitourinary: No: Dysuria Musculoskeletal: Positive: Edema, Pain, No: Limited ROM Skin: No Rash Neurologic: No: Weakness Psychiatric: No: Depression Endocrine: No: Polydipsia Hematologic/Lymphatic: No: Easy Bruising Physical Exam Narrative GENERAL: Awake alert oriented 3 no acute distress SKIN: Warm and dry. HEAD: Atraumatic. Normocephalic. EYES: Pupils equal and round. No scleral icterus. No injection or drainage. ENT: No nasal bleeding or discharge. Mucous membranes pink and moist. NECK: Trachea midline. No JVD. CARDIOVASCULAR: Regular rate and rhythm. RESPIRATORY: No accessory muscle use. Clear to auscultation. Breath sounds equal bilaterally. GASTROINTESTINAL: Abdomen soft, non-tender, nondistended. Hepatic and splenic margins not palpable. MUSCULOSKELETAL: Right hand edematous, erythematous, tender. Full range of motion fingers hand and wrist. red streaking up the right forearm on the dorsal aspect. Neurovascular intact NEUROLOGICAL: Awake and alert. No obvious cranial nerve deficits. Motor grossly within normal limits. Five out of 5 muscle strength in the arms and legs. Normal speech. PSYCHIATRIC: Appropriate mood and affect; insight and judgment normal. Data Data Last Documented VS Vital Signs Date Time Temp Pulse Resp B/P (MAP) Pulse Ox O2 Delivery O2 Flow Rate FiO2 05/14/17 16:05 98.7 80 18 171/83 (112) 98 Room Air Orders Orders Complete Blood Count With Diff (05/14/17 16:51) Comprehensive Metabolic Panel (05/14/17 16:51) Lactic Acid Sepsis Protocol (05/14/17 16:51) C-Reactive Protein (Crp) (05/14/17 16:51) Westergren Sedimentation Rate (05/14/17 16:51) Hand, Complete ([id number]) (05/14/17 ) Iv Access Insert/Monitor (05/14/17 20:56) Ciprofloxacin 400 Mg Premix (Cipro 400 M (05/14/17 21:00) Clindamycin 900 Mg/Dex Premix (Cleocin 9 (05/14/17 21:00) Ketorolac Inj (Toradol Inj) (05/14/17 21:00) Place In Observation (05/14/17 ) Vital Signs (Adult) Q4H (05/14/17 21:12) Activity Oob With Assistance (05/14/17 21:12) Plugger Worker / Telemetry .CONTINUOUS (05/14/17 21:12) Intake + Output RUCHI.QSHIFT (05/14/17 21:12) Diet Heart Healthy (05/15/17 Breakfast) Sodium Chloride 0.9% Flush (Ns Flush) (05/14/17 21:15) Sodium Chloride 0.9% Flush (Ns Flush) (05/15/17 09:00) Basic Metabolic Panel (Bmp) (05/15/17 06:00) Complete Blood Count With Diff (05/15/17 06:00) Case Management Consult (05/14/17 21:12) Naloxone Inj (Narcan Inj) (05/14/17 21:15) Labs Laboratory Tests Test 05/14/17 18:30 White Blood Count 5.1 TH/MM3 Red Blood Count 4.35 MIL/MM3 Hemoglobin 14.0 GM/DL Hematocrit 40.0 % Mean Corpuscular Volume 92.0 FL Mean Corpuscular Hemoglobin 32.1 PG Mean Corpuscular Hemoglobin Concent 34.9 % Red Cell Distribution Width 12.5 % Platelet Count 235 TH/MM3 Mean Platelet Volume 8.3 FL Neutrophils (%) (Auto) 53.7 % Lymphocytes (%) (Auto) 31.9 % Monocytes (%) (Auto) 11.4 % Eosinophils (%) (Auto) 2.4 % Basophils (%) (Auto) 0.6 % Neutrophils # (Auto) 2.8 TH/MM3 Lymphocytes # (Auto) 1.6 TH/MM3 Monocytes # (Auto) 0.6 TH/MM3 Eosinophils # (Auto) 0.1 TH/MM3 Basophils # (Auto) 0.0 TH/MM3 CBC Comment DIFF FINAL Differential Comment Erythrocyte Sedimentation Rate 17 mm/hr Blood Urea Nitrogen 20 MG/DL Creatinine 0.58 MG/DL Random Glucose 92 MG/DL Total Protein 7.4 GM/DL Albumin 3.8 GM/DL Calcium Level 8.9 MG/DL Alkaline Phosphatase 91 U/L Aspartate Amino Transf (AST/SGOT) 15 U/L Alanine Aminotransferase (ALT/SGPT) 23 U/L Total Bilirubin 0.4 MG/DL Sodium Level 138 MEQ/L Potassium Level 3.6 MEQ/L Chloride Level 106 MEQ/L Carbon Dioxide Level 24.6 MEQ/L Anion Gap 7 MEQ/L Estimat Glomerular Filtration Rate 108 ML/MIN Lactic Acid Level 0.9 mmol/L C-Reactive Protein 0.49 MG/DL [facility] Medical Decision Making Medical Screen Exam Complete: Yes Emergency Medical Condition: Yes Medical Record Reviewed: Yes Differential Diagnosis Dogbite right hand, infected dog bite, ascending lymphangitis Narrative Course IV ordered with blood cultures and broad-spectrum antibiotics. Penicillin allergy noted Case discussed with hospitalist Dr. Bright, admitted Diagnosis Primary Impression: Dog bite of right hand with infection Qualified Codes: S61.451A - Open bite of right hand, initial encounter; L08.9 - Local infection of the skin and subcutaneous tissue, unspecified; W54.0XXA - Bitten by dog, initial encounter Admitting Information Admitting Physician Requests: Admit Condition: Stable Xu Dwyer MD May 14, 2017 20:55
[2017-05-14] MEDS ORDERED: KETOROLAC TROMETHAMINE 30 MG/ML (IVP) VIAL IV PUSH ONE (21:00)
[2017-05-14] MEDS ORDERED: CIPROFLOXACIN 400 MG PREMIX 200 ML IV ONE (21:00)
[2017-05-14] MEDS ORDERED: CLINDAMYCIN 900 MG/DEX PREMIX 50 ML IV ONE (21:00)
[2017-05-14] MEDS ORDERED: NALOXONE HCL 0.4 MG/ML AMP IV PUSH PRN (21:15)
[2017-05-14] MEDS ORDERED: SODIUM CHLORIDE 0.9% FLUSH 10 ML FLUSH IV FLUSH PRN (21:15)
[2017-05-14] MEDS: metroNIDAZOLE 500 MG INJ 100 ML IV SCH (22:07)
[2017-05-14] MEDS ORDERED: traMADol HCL 50 MG TAB PO PRN (23:15)
[2017-05-14 23:50] VITALS: BP 123/59; PULSE 71; RESP 18; TEMP 97.9; O2SAT 97
[2017-05-15] VITALS (10 sets, daily range): BP systolic 117–148; BP diastolic 55–67; PULSE 64–86; RESP 18–20; TEMP 96.2–98.2; O2SAT 95–100
[2017-05-15] MEDS ORDERED: ACETAMINOPHEN/HYDROcodone 325 MG/7.5 MG TAB PO ONE (03:30)
[2017-05-15] MEDS: ONDANSETRON HCL 4 MG/2 ML VIAL IV PUSH PRN ×2 (04:09→23:25)
--- NOTE | 2017-05-15 04:52 | HHI.HP ---
[facility] Service Family Medicine Primary Care Physician Unknown Admission Diagnosis Infected Dog Bite Left hand Diagnoses: International Travel<30 Days: No Contact w/Intl Traveler<30days: No Known Affected Area: No History of Present Illness 56 female presents to the ED from our Acute clinic with a dog bite from a husky 5 days ago. She presented to the [place] ED on May 10. She received a tetanus shot in the ED. She has an approximately 5 cm laceration on the dorsal lateral aspect of her right hand near her 2nd and 3rd MCP joints, as well as three other small lacerations, one on the web of her right hand, and two on the lateral aspect of her 2nd digit. She has a total of 8 sutures placed, but two of them have come loose. There is no drainage from these sites. She does not think she's running fevers and is afebrile in clinic. However, she has felt nauseous and sick to her stomach since the bite. She thought that she could of had the flu, because she also had a headache, and was feeling sick to her stomach. She was given Flagyl and Doxycycline in the ED which she started taking 3 days ago. 3 days ago, she had streaks of erythema traveling up the lateral aspect of her arm, which has since gone away. However, near the largest bite on the dorsal aspect of her arm, she is having increased erythema, pain, and swelling and is concerned it is getting worse. No chest pain, shortness of breath, abdominal pain. She denies any drainage from this area. ROS: ++ Headache, nausea ++ Pain in her left hand ++ Insomnia ++ loose stools Denies fevers and chills. Denies vomiting. Denies blurry vision. Denies neck pain that is new. Denies chest pain or SOB. Denies abdominal pain, blood in her stool Denies dysuria. Denies lymph adenopathy. (Theo Gomes MD, R3) Past Family Social History Past Medical History RA Lupus Anxiety / Depression / ADHD Past Surgical History Appendectomy, bunion removal, total (partial hysterectomy), facial surgery (Theo Gomes MD, R3) Allergies: Coded Allergies: penicillin G (Unverified Allergy, Intermediate, "HEAD THROBS", 05/14/17) Family History Mom -lung cancer at 68 y/o previous smoker Dad - passed from CVA at age of 68 y/o Siblings - 5 brothers and sisters: RA in oldest brother, peripheral vascular disease Children - 2 male children - ADD and anxiety Social History Non smoker No marijuana Drink or two per week - kendall. (Theo Gomes MD, R3) Physical Exam Vital Signs Vital Signs Date Time Temp Pulse Resp B/P (MAP) Pulse Ox O2 Delivery O2 Flow Rate FiO2 05/15/17 02:57 98.2 74 18 117/55 (75) 95 05/14/17 23:50 97.9 71 18 123/59 (80) 97 05/14/17 16:05 98.7 80 18 171/83 (112) 98 Room Air Physical Exam General: Healthy appearing female, no distress Skin: 5 cm laceration on the dorsal aspect of the right lateral hand near the 2nd and 3rd MCP joints with 6 stitches, two that have come loose, no purulent drainage from the site. The area is erythematous, has pitting edema, and is painful to palpation. Flexes the right hand but with pain. No streaking going up the arm. 3 small lacerations on the lateral aspect of her hand, one in the web of her hand, the other two on the lateral aspect of her 2nd digit. These are not erythematous or swollen. Flexes right arm without any problem. No lymphadenopathy of the arm, including no epitrochlear adenopathy or axillary adenopathy. HEENT: Normocephalic CV: RRR, no murmur Lungs: CTAB Abdomen: Soft, nontender, nondistended Ext: see skin exam Laboratory Laboratory Tests Test 05/14/17 18:30 White Blood Count 5.1 Red Blood Count 4.35 Hemoglobin 14.0 Hematocrit 40.0 Mean Corpuscular Volume 92.0 Mean Corpuscular Hemoglobin 32.1 Mean Corpuscular Hemoglobin Concent 34.9 Red Cell Distribution Width 12.5 Platelet Count 235 Mean Platelet Volume 8.3 Neutrophils (%) (Auto) 53.7 Lymphocytes (%) (Auto) 31.9 Monocytes (%) (Auto) 11.4 Eosinophils (%) (Auto) 2.4 Basophils (%) (Auto) 0.6 Neutrophils # (Auto) 2.8 Lymphocytes # (Auto) 1.6 Monocytes # (Auto) 0.6 Eosinophils # (Auto) 0.1 Basophils # (Auto) 0.0 CBC Comment DIFF FINAL Differential Comment Erythrocyte Sedimentation Rate 17 Blood Urea Nitrogen 20 Creatinine 0.58 Random Glucose 92 Total Protein 7.4 Albumin 3.8 Calcium Level 8.9 Alkaline Phosphatase 91 Aspartate Amino Transf (AST/SGOT) 15 Alanine Aminotransferase (ALT/SGPT) 23 Total Bilirubin 0.4 Sodium Level 138 Potassium Level 3.6 Chloride Level 106 Carbon Dioxide Level 24.6 Anion Gap 7 Estimat Glomerular Filtration Rate 108 Lactic Acid Level 0.9 C-Reactive Protein 0.49 (Theo Gomes MD, R3) Result Diagram: 05/14/17182905/14/171829 Caprini VTE Risk Assessment Caprini VTE Risk Assessment: No/Low Risk (score <= 1) Caprini Risk Assessment Model Point Value = 1 Point Value = 2 Point Value = 3 Point Value = 5 Age 41-60 Minor surgery BMI > 25 kg/m2 Swollen legs Varicose veins or History of unexplained or recurrent spontaneous Oral contraceptives or hormone replacement Sepsis (< 1 month) Serious lung disease, including pneumonia (< 1 month) Abnormal pulmonary function Acute myocardial infarction Congestive heart failure (< 1 month) History of inflammatory bowel disease Medical patient at bed rest Age 61-74 Arthroscopic surgery Major open surgery (> 45 min) Laparoscopic surgery (> 45 min) Malignancy Confined to bed (> 72 hours) Immobilizing plaster cast Central venous access Age >= 75 History of VTE Family history of VTE Factor V Leiden Prothrombin [id number] Lupus anticoagulant Anticardiolipin antibodies Elevated serum homocysteine Heparin-induced thrombocytopenia Other congenital or acquired thrombophilia Stroke (< 1 month) Elective arthroplasty Hip, pelvis, or leg fracture Acute spinal cord injury (< 1 month) Prophylaxis Regimen Total Risk Factor Score Risk Level Prophylaxis Regimen 0-1 Low Early ambulation 2 Moderate Order ONE of the following: *Sequential Compression Device (SCD) *Heparin 5000 units SQ BID 3-4 Higher Order ONE of the following medications: *Heparin 5000 units SQ TID *Enoxaparin/Lovenox 40 mg SQ daily (WT < 150 kg, CrCl > 30 mL/min) *Enoxaparin/Lovenox 30 mg SQ daily (WT < 150 kg, CrCl > 10-29 mL/min) *Enoxaparin/Lovenox 30 mg SQ BID (WT < 150 kg, CrCl > 30 mL/min) AND/OR *Sequential Compression Device (SCD) 5 or more Highest Order ONE of the following medications: *Heparin 5000 units SQ TID (Preferred with Epidurals) *Enoxaparin/Lovenox 40 mg SQ daily (WT < 150 kg, CrCl > 30 mL/min) *Enoxaparin/Lovenox 30 mg SQ daily (WT < 150 kg, CrCl > 10-29 mL/min) *Enoxaparin/Lovenox 30 mg SQ BID (WT < 150 kg, CrCl > 30 mL/min) AND *Sequential Compression Device (SCD) (Theo Gomes MD, R3) Assessment and Plan Assessment and Plan 56 y/o female with a PMHx of ADHD, rheumatoid arthritis, and systemic lupus erythematous presenting after failing out patient therapy for dog bite. Code Status Full Code. (Theo Gomes MD, R3) Problem List: (1) Dog bite of right hand with infection ICD Codes: S61.451A - Open bite of right hand, initial encounter; L08.9 - Local infection of the skin and subcutaneous tissue, unspecified; W54.0XXA - Bitten by dog, initial encounter Plan: Consult hand surgery, we appreciate their assistance. Started on Flagyl and ciprofloxacin IV. Will monitor response to these antibiotics. No leukocytosis, but slightly elevated CRP at 0.49. Sterile dressing to the wound q daily, with Vaseline/Neosporin. (2) Rheumatoid arthritis ICD Codes: M06.9 - Rheumatoid arthritis, unspecified Status: Chronic Plan: Continue home Plaquenil 200 mg daily. (3) ADHD (attention deficit hyperactivity disorder) ICD Codes: F90.9 - Attention-deficit hyperactivity disorder, unspecified type Status: Chronic Plan: Well controlled on Vyvanse. Continue during the week. (4) Depression ICD Codes: F32.9 - Major depressive disorder, single episode, unspecified Status: Chronic Plan: Having some insomnia, but denies depressive symptoms. Treat insomnia with melatonin 5 mg as needed for sleep. (5) Nutrition, metabolism, and development symptoms ICD Codes: R63.8 - Other symptoms and signs concerning food and fluid intake Plan: Nutrition: Was given heart healthy diet on admission. Will make NPO. Having saltine and flaca kodi while doing exam. DVT ppx: Ambulatory, SCDs. GI ppx: not indicated. Fluids: PO. If NPO for long periods of time would give NS at maintenance. [facility] Medical Team (Theo Gomes MD, R3) Problem List: (1) Dog bite of right hand with infection ICD Codes: S61.451A - Open bite of right hand, initial encounter; L08.9 - Local infection of the skin and subcutaneous tissue, unspecified; W54.0XXA - Bitten by dog, initial encounter Plan: Consult hand surgery, we appreciate their assistance. Started on Flagyl and ciprofloxacin IV. Will monitor response to these antibiotics. No leukocytosis, but slightly elevated CRP at 0.49. Sterile dressing to the wound q daily, with Vaseline/Neosporin. (2) Rheumatoid arthritis ICD Codes: M06.9 - Rheumatoid arthritis, unspecified Status: Chronic Plan: Continue home Plaquenil 200 mg daily. (3) ADHD (attention deficit hyperactivity disorder) ICD Codes: F90.9 - Attention-deficit hyperactivity disorder, unspecified type Status: Chronic Plan: Well controlled on Vyvanse. Continue during the week. (4) Depression ICD Codes: F32.9 - Major depressive disorder, single episode, unspecified Status: Chronic Plan: Having some insomnia, but denies depressive symptoms. Treat insomnia with melatonin 5 mg as needed for sleep. (5) Nutrition, metabolism, and development symptoms ICD Codes: R63.8 - Other symptoms and signs concerning food and fluid intake Plan: Nutrition: Was given heart healthy diet on admission. Will make NPO. Having saltine and flaca kodi while doing exam. DVT ppx: Ambulatory, SCDs. GI ppx: not indicated. Fluids: PO. If NPO for long periods of time would give NS at maintenance. [facility] Medical Team See the residents documentation for details. I saw and evaluated the patient regarding the luis portions of this evaluation and agree with the residents findings and plans as written. Parts of this note were created using [employer] voice recognition software program. While efforts were made to correct any mistakes made by this software, some mistakes, errors, and omissions may remain in the final note that were not caught when the note was originally created. Plan of care was discussed and agreed upon with the patient as specifically documented in the above note. An opportunity to ask questions with explanation was provided. Patient voiced understanding on all information reviewed and discussed. (Jasvir Duffy MD) Problem Qualifiers (1) Dog bite of right hand with infection: Qualified Codes: S61.451A - Open bite of right hand, initial encounter; L08.9 - Local infection of the skin and subcutaneous tissue, unspecified; W54.0XXA - Bitten by dog, initial encounter Theo Gomes MD, R3 May 15, 2017 04:52 Jasvir Duffy MD May 15, 2017 13:07
[2017-05-15] MEDS ORDERED: NEOMYCIN/POLYMYXIN/BACITRACIN OINT 15 GM TUBE TOPICAL ONE (05:15)
[2017-05-15] MEDS ORDERED: MELATONIN 5 MG TAB PO PRN (05:30)
[2017-05-15] MEDS: metroNIDAZOLE 500 MG INJ 100 ML IV SCH (06:07)
[2017-05-15 07:58] LABS: AUTOMATED NEUTROPHIL # 2.1 TH/MM3 (1.8-7.7); BASOPHIL % 0.6 % (0.0-2.0); EOSINOPHIL # 0.2 TH/MM3 (0-0.4); HEMATOCRIT 36.8 % (35.0-46.0); HEMOGLOBIN 12.9 GM/DL (11.6-15.3); LYMPH % 34.7 % (9.0-44.0); LYMPHOCYTE # 1.6 TH/MM3 (1.0-4.8); MEAN CELL VOLUME 91.5 FL (80.0-100.0); MEAN PLATELET VOLUME 7.8 FL (7.0-11.0); MONOCYTE # 0.7 TH/MM3 (0-0.9); NEUT % 45.7 % (16.0-70.0); PLATELET COUNT 198 TH/MM3 (150-450); RED BLOOD COUNT 4.02 MIL/MM3 (4.00-5.30); RED CELL DISTRIBUTION WIDTH 12.9 % (11.6-17.2); WHITE BLOOD COUNT 4.6 TH/MM3 (4.0-11.0)
[2017-05-15 08:16] LABS: BICARBONATE 28.3 MEQ/L (21.0-32.0); CALCIUM 8.8 MG/DL (8.5-10.1); CREATININE 0.67 MG/DL (0.50-1.00)
[2017-05-15] MEDS ORDERED: CIPROFLOXACIN 400 MG PREMIX 200 ML IV SCH (09:00)
[2017-05-15] MEDS: HYDROXYCHLOROQUINE SULFATE 200 MG TAB PO SCH ×2 (09:25→21:47)
[2017-05-15] MEDS: SODIUM CHLORIDE 0.9% FLUSH 10 ML FLUSH IV FLUSH SCH ×2 (09:26→21:47)
--- NOTE | 2017-05-15 11:02 | HHI.FPPN ---
Subjective Remarks Patient seen and examined at bedside. No acute events overnight. Pt states that the swelling and redness on her Right hand has improved significantly. Minimal pain. Denies fevers or chills. (Apolinar Jones MD, R1) Objective Vitals Vital Signs Date Time Temp Pulse Resp B/P (MAP) Pulse Ox O2 Delivery O2 Flow Rate FiO2 05/15/17 08:10 96.7 68 18 100 05/15/17 02:57 98.2 74 18 117/55 (75) 95 05/14/17 23:50 97.9 71 18 123/59 (80) 97 05/14/17 16:05 98.7 80 18 171/83 (112) 98 Room Air I/O 05/14/17 05/14/17 05/14/17 05/15/17 05/15/17 05/15/17 07:00 15:00 23:00 07:00 15:00 23:00 Intake Total 200 ml 200 ml Balance 200 ml 200 ml Intake IV Total 200 ml 200 ml (Apolinar Jones MD, R1) Result Diagram: 05/15/17 0710 05/15/17 0710 Imaging Last Impressions Hand X-Ray 05/14/17 0000 Signed Impressions: Service Date/Time: Sunday, May 14, 2017 17:05 - CONCLUSION: 1. No acute fracture or dislocation. No radiopaque foreign bodies or significance subcutaneous emphysema. Augustine Leblanc MD Objective Remarks General: Healthy appearing female, no distress Skin: 5 cm laceration on the dorsal aspect of the right lateral hand near the 2nd and 3rd MCP joints with 6 stitches, two that have come loose, no purulent drainage from the site. The area is localized mild erythema noted on dorsal laceration, mild +1 edema, and is painful to palpation. Flexes the right hand but with pain. No streaking going up the arm. 3 small lacerations on the lateral aspect of her hand, one in the web of her hand, the other two on the lateral aspect of her 2nd digit. These are not erythematous or swollen. Flexes right arm without any problem. No lymphadenopathy of the arm, including no epitrochlear adenopathy or axillary adenopathy. +2 radial pulses on right hand. HEENT: Normocephalic CV: RRR, no murmur Lungs: CTAB Abdomen: Soft, nontender, nondistended Ext: see skin exam (Apolinar Jones MD, R1) A/P Assessment and Plan 56 y/o female with a PMHx of ADHD, rheumatoid arthritis, and systemic lupus erythematous presenting after failing out patient therapy for dog bite. (Apolinar Jones MD, R1) Problem List: (1) Dog bite of right hand with infection ICD Codes: S61.451A - Open bite of right hand, initial encounter; L08.9 - Local infection of the skin and subcutaneous tissue, unspecified; W54.0XXA - Bitten by dog, initial encounter Plan: Hand surgery consulted, we appreciate their assistance. 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 Antibiotics switched to bactrim IV 4mg/kg Q12h and clindamycin IV 600mg Q8h this morning recommended for dog bit infections No leukocytosis, but slightly elevated CRP at 0.49. Sterile dressing to the wound q daily, with Vaseline/Neosporin. Ibuprofen 600 Q6h PRN for pain and inflammation (2) Rheumatoid arthritis ICD Codes: M06.9 - Rheumatoid arthritis, unspecified Status: Chronic Plan: Continue home Plaquenil 200 mg daily. (3) ADHD (attention deficit hyperactivity disorder) ICD Codes: F90.9 - Attention-deficit hyperactivity disorder, unspecified type Status: Chronic Plan: Well controlled on Vyvanse. Continue during the week. (4) Depression ICD Codes: F32.9 - Major depressive disorder, single episode, unspecified Status: Chronic Plan: Having some insomnia, but denies depressive symptoms. Treat insomnia with melatonin 5 mg as needed for sleep. (5) Nutrition, metabolism, and development symptoms ICD Codes: R63.8 - Other symptoms and signs concerning food and fluid intake Plan: Nutrition: NPO DVT ppx: Ambulatory, SCDs. GI ppx: not indicated. Fluids: not indicated at this time swd Dr. Duffy (Apolinar Jones MD, R1) Problem List: (1) Dog bite of right hand with infection ICD Codes: S61.451A - Open bite of right hand, initial encounter; L08.9 - Local infection of the skin and subcutaneous tissue, unspecified; W54.0XXA - Bitten by dog, initial encounter Plan: Hand surgery consulted, we appreciate their assistance. 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 Antibiotics switched to bactrim IV 4mg/kg Q12h and clindamycin IV 600mg Q8h this morning recommended for dog bit infections No leukocytosis, but slightly elevated CRP at 0.49. Sterile dressing to the wound q daily, with Vaseline/Neosporin. Ibuprofen 600 Q6h PRN for pain and inflammation (2) Rheumatoid arthritis ICD Codes: M06.9 - Rheumatoid arthritis, unspecified Status: Chronic Plan: Continue home Plaquenil 200 mg daily. (3) ADHD (attention deficit hyperactivity disorder) ICD Codes: F90.9 - Attention-deficit hyperactivity disorder, unspecified type Status: Chronic Plan: Well controlled on Vyvanse. Continue during the week. (4) Depression ICD Codes: F32.9 - Major depressive disorder, single episode, unspecified Status: Chronic Plan: Having some insomnia, but denies depressive symptoms. Treat insomnia with melatonin 5 mg as needed for sleep. (5) Nutrition, metabolism, and development symptoms ICD Codes: R63.8 - Other symptoms and signs concerning food and fluid intake Plan: Nutrition: NPO DVT ppx: Ambulatory, SCDs. GI ppx: not indicated. Fluids: not indicated at this time swd Dr. Duffy See the residents documentation for details. I saw and evaluated the patient regarding the luis portions of this evaluation and agree with the residents findings and plans as written. Parts of this note were created using [email or web address] voice recognition software program. While efforts were made to correct any mistakes made by this software, some mistakes, errors, and omissions may remain in the final note that were not caught when the note was originally created. Plan of care was discussed and agreed upon with the patient as specifically documented in the above note. An opportunity to ask questions with explanation was provided. Patient voiced understanding on all information reviewed and discussed. (Jasvir Duffy MD) Problem Qualifiers (1) Dog bite of right hand with infection: Qualified Codes: S61.451A - Open bite of right hand, initial encounter; L08.9 - Local infection of the skin and subcutaneous tissue, unspecified; W54.0XXA - Bitten by dog, initial encounter Apolinar Jones MD, R1 May 15, 2017 11:02 Jasvir Duffy MD May 15, 2017 13:14
[2017-05-15] MEDS ORDERED: TRIMETHOPRIM IV SCH ×2 (11:15)
[2017-05-15] MEDS ORDERED: WATE IV SCH ×2 (11:15)
[2017-05-15] MEDS ORDERED: DEXTROSE 5% IV SCH ×2 (11:15)
[2017-05-15] MEDS ORDERED: SULFAMETHOX IV SCH ×2 (11:15)
[2017-05-15] MEDS: IBUPROFEN 600 MG TAB PO PRN ×2 (11:18→18:18)
[2017-05-15] MEDS: CLINDAMYCIN 600 MG/NS PREMIX 50 ML IV SCH ×2 (12:00→21:47)
[2017-05-15] MEDS: SULFAMETHOXAZOLE-TRIMETHOPRIM DS 800-160 MG TAB PO SCH ×2 (13:56→21:47)
[2017-05-15] MEDS ORDERED: LACTATED RINGER'S 1000 ML IV PRN (20:45)
[2017-05-15] MEDS ORDERED: CHLORHEXIDINE GLUCONATE 2 % 1 PACK (2 CLOTHS) TOPICAL PRN (20:45)
[2017-05-15] MEDS ORDERED: METOPROLOL TARTRATE 25 MG TAB PO PRN (20:45)
[2017-05-15] MEDS ORDERED: SODIUM CHLORID 0.9% 500 ML IV PRN (20:45)
[2017-05-15] MEDS ORDERED: POVIDONE IODINE 5% (ANTISEPSIS KIT) 4 APPLICATIONS EACH NARE PRN (20:45)
[2017-05-16] VITALS (8 sets, daily range): BP systolic 115–143; BP diastolic 60–68; PULSE 62–68; RESP 18–20; TEMP 95.9–98.1; O2SAT 95–97
[2017-05-16] MEDS: CLINDAMYCIN 600 MG/NS PREMIX 50 ML IV SCH ×3 (04:13→20:20)
[2017-05-16] MEDS: IBUPROFEN 600 MG TAB PO PRN (04:53)
--- NOTE | 2017-05-16 06:47 | MB ---
cc: MARY LOU KEYS DATE OF CONSULTATION 05/15/2017 REASON FOR CONSULTATION Right hand dog bite. HISTORY The patient is a 56-year-old right-hand dominant female who presented with complaints of dog bite to her right hand about six days ago. The patient states she was bitten by her dog and she was seen at Urgent Care. She had suturing of the laceration. She presented to ED with complaints of worsening pain over the right hand with associated redness and swelling. Denies any fever. She also complains of pain with range of finger motion. The patient also complains of numbness distal to the laceration. PAST MEDICAL-SURGICAL HISTORY Her past medical-surgical history were noted and significant for: 1. Rheumatoid arthritis 2. Lupus 3. Anxiety and depression PAST SURGICAL HISTORY Her past surgical history is significant for: 1. Appendectomy 2. Partial hysterectomy EXAMINATION The patient is alert and oriented x3. RIGHT HAND: Examination of right hand reveals a sutured laceration over the dorsal aspect of the hand at the second and third metacarpal distal shaft region with part of the laceration opened up and part of the sutures are intact. There is surrounding swelling and erythema. There is also a sutured laceration in the palm. No purulent drainage noted. Tenderness noted surrounding the laceration. She has decreased sensation distal to the laceration of the metacarpal phalangeal joints. On making a fist, a decrease of flexion and extension of the MP joint is also associated with pain. She has intact sensation over the pulp region. No proximal lymphadenopathy noted. LABORATORY DATA Her lab work was reviewed. She has a white count of 5.1 with neutrophil shift of 53%. She had x-rays of the right hand which shows evidence of soft tissue swelling. No evidence of radiopaque foreign body noted. ASSESSMENT/PLAN This is a 56-year-old female with a dog bite and infection right hand six days. Plan will be to keep the patient n.p.o.. We will take her emergently for exploration, wash, and debridement of the right hand. We will continue with IV antibiotics. Mary Lou Keys MD SE/BAILEE /8:05 PM /6:25 AM
[2017-05-16 08:48] LABS: AUTOMATED NEUTROPHIL # 1.9 TH/MM3 (1.8-7.7); BASOPHIL % 0.7 % (0.0-2.0); EOSINOPHIL # 0.2 TH/MM3 (0-0.4); EOSINOPHIL % 4.1 % (0.0-4.0); HEMATOCRIT 38.3 % (35.0-46.0); HEMOGLOBIN 13.2 GM/DL (11.6-15.3); LYMPH % 34.3 % (9.0-44.0); LYMPHOCYTE # 1.4 TH/MM3 (1.0-4.8); MEAN CELL VOLUME 91.9 FL (80.0-100.0); MEAN CORPUSCULAR HEMOGLOBIN 31.7 PG (27.0-34.0); MEAN CORPUSCULAR HGB CONC 34.4 % (32.0-36.0); MEAN PLATELET VOLUME 8.1 FL (7.0-11.0); MONO % 14.7 % (0.0-8.0); MONOCYTE # 0.6 TH/MM3 (0-0.9); NEUT % 46.2 % (16.0-70.0); PLATELET COUNT 213 TH/MM3 (150-450); RED BLOOD COUNT 4.17 MIL/MM3 (4.00-5.30); RED CELL DISTRIBUTION WIDTH 12.7 % (11.6-17.2); WHITE BLOOD COUNT 4.1 TH/MM3 (4.0-11.0)
[2017-05-16 09:11] LABS: BICARBONATE 26.6 MEQ/L (21.0-32.0); CALCIUM 8.7 MG/DL (8.5-10.1); CREATININE 0.7 MG/DL (0.50-1.00)
[2017-05-16] MEDS: SODIUM CHLORIDE 0.9% FLUSH 10 ML FLUSH IV FLUSH SCH ×2 (09:31→20:20)
[2017-05-16] MEDS: HYDROXYCHLOROQUINE SULFATE 200 MG TAB PO SCH ×2 (09:32→20:21)
[2017-05-16] MEDS: SULFAMETHOXAZOLE-TRIMETHOPRIM DS 800-160 MG TAB PO SCH ×2 (09:32→20:21)
[2017-05-16] MEDS ORDERED: ACETAMINOPHEN 325 MG TAB PO PRN (10:30)
[2017-05-16] MEDS: IBUPROFEN 600 MG TAB PO SCH ×3 (11:01→22:44)
[2017-05-16] MEDS: SODIUM CHLOR 0.9% 1000 ML INJ 1,000 ML IV SCH ×2 (11:01→17:50)
[2017-05-16] MEDS ORDERED: LIDOCAINE HCL 1% PF 5 ML SYRINGE OTHER ONE (12:00)
[2017-05-16] MEDS ORDERED: DEXAMETHASONE SOD PHOS 4 MG/ML VIAL IV ONE (12:00)
[2017-05-16] MEDS ORDERED: PROPOFOL 200 MG/20 ML AMP IV ONE (12:00)
[2017-05-16] MEDS ORDERED: ONDANSETRON HCL 4 MG/2 ML VIAL IV PUSH ONE (12:00)
--- NOTE | 2017-05-16 12:37 | HHI.FPPN ---
Subjective Remarks patient seen and examined at bedside. Pt stated she has nausea and LÓPEZ. Pt vomited x1 last night. She states her hand pain is currently 4/10. Objective Vitals Vital Signs Date Time Temp Pulse Resp B/P (MAP) Pulse Ox O2 Delivery O2 Flow Rate FiO2 05/16/17 12:05 96.5 64 20 131/62 (85) 97 05/16/17 08:29 95.9 67 18 115/66 (82) 97 05/16/17 07:46 65 05/16/17 05:47 97.6 64 18 121/60 (80) 96 05/16/17 04:05 62 05/16/17 01:45 98.1 68 18 136/65 (88) 96 05/15/17 23:59 64 05/15/17 21:55 97.7 68 18 148/67 (94) 98 05/15/17 20:03 64 05/15/17 16:20 65 05/15/17 15:46 96.3 68 18 134/61 (85) 97 05/15/17 13:26 96.2 66 20 128/64 (85) 98 I/O 05/15/17 05/15/17 05/15/17 05/16/17 05/16/17 05/16/17 07:00 15:00 23:00 07:00 15:00 23:00 Intake Total 200 ml Balance 200 ml Intake IV Total 200 ml # Voids 1 2 Result Diagram: 05/16/17 0831 05/16/17 0831 Objective Remarks General: Healthy appearing female, no distress Skin: laceration wrapped in bandages. Flexes right arm without any problem. No lymphadenopathy of the arm, including no epitrochlear adenopathy or axillary adenopathy. +2 radial pulses on right hand. Normal sensation. HEENT: Normocephalic CV: RRR, no murmur Lungs: CTAB Abdomen: Soft, nontender, nondistended A/P Assessment and Plan 56 y/o female with a PMHx of ADHD, rheumatoid arthritis, and systemic lupus erythematous presenting after failing out patient therapy for dog bite. Problem List: (1) Dog bite of right hand with infection ICD Codes: S61.451A - Open bite of right hand, initial encounter; L08.9 - Local infection of the skin and subcutaneous tissue, unspecified; W54.0XXA - Bitten by dog, initial encounter Plan: Pt is Right-handed and works as clinical secretary Started on Flagyl and ciprofloxacin IV on admission. Antibiotics switched to bactrim DS 800-160mg po Q12h and clindamycin IV 600mg Q8h on 05/15- labs WNL Sterile dressing to the wound q daily, with Vaseline/Neosporin. Ibuprofen 600 Q6h PRN for pain and inflammation Hand surgery consulted, we appreciate their assistance. Pt to have I&D done today (2) Rheumatoid arthritis ICD Codes: M06.9 - Rheumatoid arthritis, unspecified Status: Chronic Plan: Continue home Plaquenil 200 mg daily. (3) ADHD (attention deficit hyperactivity disorder) ICD Codes: F90.9 - Attention-deficit hyperactivity disorder, unspecified type Status: Chronic Plan: Well controlled on Vyvanse. Continue during the week. (4) Depression ICD Codes: F32.9 - Major depressive disorder, single episode, unspecified Status: Chronic Plan: Having some insomnia, but denies depressive symptoms. Treat insomnia with melatonin 5 mg as needed for sleep. (5) Nutrition, metabolism, and development symptoms ICD Codes: R63.8 - Other symptoms and signs concerning food and fluid intake Plan: Fluids: 128mls/hr started this am DVT ppx: Ambulatory, SCDs. GI ppx: not indicated. Nutrition: NPO See the residents documentation for details. I saw and evaluated the patient regarding the luis portions of this evaluation and agree with the residents findings and plans as written. Parts of this note were created using [employer] voice recognition software program. While efforts were made to correct any mistakes made by this software, some mistakes, errors, and omissions may remain in the final note that were not caught when the note was originally created. Plan of care was discussed and agreed upon with the patient as specifically documented in the above note. An opportunity to ask questions with explanation was provided. Patient voiced understanding on all information reviewed and discussed. Problem Qualifiers (1) Dog bite of right hand with infection: Qualified Codes: S61.451A - Open bite of right hand, initial encounter; L08.9 - Local infection of the skin and subcutaneous tissue, unspecified; W54.0XXA - Bitten by dog, initial encounter Apolinar Jones MD, R1 May 16, 2017 12:37
--- NOTE | 2017-05-16 14:44 | EKG ---
Date Performed: 05/15/2017 Time Performed: 22:06:49 PTAGE: 56 years EKG: Sinus rhythm Nonspecific ST-T wave changes NO PREVIOUS TRACING DOCTOR: Hilario Villalobos Interpretating Date/Time 05/16/2017 14:43:15
[2017-05-16] MEDS ORDERED: fentaNYL CITRATE 250 MCG/5 ML AMP ONE (15:51)
--- NOTE | 2017-05-16 15:59 | HHI.HP ---
HPI Service Family Medicine Primary Care Physician Unknown Admission Diagnosis Infected Dog Bite Left hand Diagnoses: (1) Dog bite of right hand with infection (2) Rheumatoid arthritis (3) ADHD (attention deficit hyperactivity disorder) (4) Depression (5) Nutrition, metabolism, and development symptoms International Travel<30 Days: No Contact w/Intl Traveler<30days: No Known Affected Area: No History of Present Illness Patient was seen and examined at bedside today. She stated that she was feeling well. No complaints of shortness of breath, chest pain, or abdominal discomfort during the night. No fevers or chills. She has been seen by hand surgery. They're planning surgical intervention for her, and possible debridement of the area. She does complain of discomfort over the area, but states that it is mild. Overall doing significantly better, with the addition of the new antibiotics. Denies any new numbness or weakness in the hand. Review of Systems Other REVIEW OF SYSTEMS: General: Denies fever or other problems. Skin: Denies rash. HEENT: No diplopia. No epistaxis. No headache. Head: Denies head injury. Respiratory: No cough. Denies shortness of breath. Cardiovascular: No chest pain. No reduced exercise tolerance. Gastrointestinal: No abdominal pain. No constipation or diarrhea. No hematemesis and rectal bleeding. Genitourinary: No abnormal urination. Hematologic: No easy bruisability. Musculoskeletal: See HPI. Neurologic: See HPI. Psychiatric: Denies problems. Past Family Social History Past Medical History RA Lupus Anxiety / Depression / ADHD Past Surgical History Appendectomy, bunion removal, total (partial hysterectomy), facial surgery Allergies: Coded Allergies: penicillin G (Unverified Allergy, Intermediate, "HEAD THROBS", 05/14/17) Family History Mom -lung cancer at 68 y/o previous smoker Dad - passed from CVA at age of 68 y/o Siblings - 5 brothers and sisters: RA in oldest brother, peripheral vascular disease Children - 2 male children - ADD and anxiety Social History Non smoker No marijuana Drink or two per week - kendall. Physical Exam Vital Signs Vital Signs Date Time Temp Pulse Resp B/P (MAP) Pulse Ox O2 Delivery O2 Flow Rate FiO2 05/16/17 12:47 66 05/16/17 12:05 96.5 64 20 131/62 (85) 97 05/16/17 08:29 95.9 67 18 115/66 (82) 97 05/16/17 07:46 65 05/16/17 05:47 97.6 64 18 121/60 (80) 96 05/16/17 04:05 62 05/16/17 01:45 98.1 68 18 136/65 (88) 96 05/15/17 23:59 64 05/15/17 21:55 97.7 68 18 148/67 (94) 98 05/15/17 20:03 64 05/15/17 16:20 65 Physical Exam GENERAL: This is a well-nourished, well-developed patient, in no apparent distress. SKIN: No rashes, ecchymoses or lesions. Cool and dry. HEAD: Atraumatic. Normocephalic. No temporal or scalp tenderness. EYES: Pupils equal round and reactive. Extraocular motions intact. No scleral icterus. No injection or drainage. ENT: Nose without bleeding, purulent drainage or septal hematoma. Throat without erythema, tonsillar hypertrophy or exudate. Uvula midline. Airway patent. NECK: Trachea midline. No JVD or lymphadenopathy. Supple, nontender, no meningeal signs. CARDIOVASCULAR: Regular rate and rhythm without murmurs, gallops, or rubs. RESPIRATORY: Clear to auscultation. Breath sounds equal bilaterally. No wheezes , rales, or rhonchi. GASTROINTESTINAL: Abdomen soft, non-tender, nondistended. No hepato-splenomegaly , or palpable masses. No guarding. MUSCULOSKELETAL: Left Wrist Full active and passive ROM with extension, flexion, and radial/ulnar deviation ; tender to palpation over the dorsal hand. Large gash with several open sutures over the dorsal hand. No oint effusion, erythema, or warmth; normal muscle strength; no obvious muscle atrophy; no crepitus; Distal pulse and light touch sensation intact distally in both upper extremities. Ipsilateral Elbow exam: Normal ROM and muscle strength; No significant tenderness or swelling. NEUROLOGICAL: Awake and alert. Cranial nerves II through XII intact. Motor and sensory grossly within normal limits. Five out of 5 muscle strength in all muscle groups. Normal speech. Laboratory Laboratory Tests Test 05/16/17 08:31 White Blood Count 4.1 Red Blood Count 4.17 Hemoglobin 13.2 Hematocrit 38.3 Mean Corpuscular Volume 91.9 Mean Corpuscular Hemoglobin 31.7 Mean Corpuscular Hemoglobin Concent 34.4 Red Cell Distribution Width 12.7 Platelet Count 213 Mean Platelet Volume 8.1 Neutrophils (%) (Auto) 46.2 Lymphocytes (%) (Auto) 34.3 Monocytes (%) (Auto) 14.7 Eosinophils (%) (Auto) 4.1 Basophils (%) (Auto) 0.7 Neutrophils # (Auto) 1.9 Lymphocytes # (Auto) 1.4 Monocytes # (Auto) 0.6 Eosinophils # (Auto) 0.2 Basophils # (Auto) 0.0 CBC Comment DIFF FINAL Differential Comment Blood Urea Nitrogen 17 Creatinine 0.70 Random Glucose 92 Calcium Level 8.7 Sodium Level 140 Potassium Level 4.2 Chloride Level 107 Carbon Dioxide Level 26.6 Anion Gap 6 Estimat Glomerular Filtration Rate 87 Result Diagram: 05/16/1783005/16/17830 Caprini VTE Risk Assessment Caprini VTE Risk Assessment: No/Low Risk (score <= 1) Caprini Risk Assessment Model Point Value = 1 Point Value = 2 Point Value = 3 Point Value = 5 Age 41-60 Minor surgery BMI > 25 kg/m2 Swollen legs Varicose veins or History of unexplained or recurrent spontaneous Oral contraceptives or hormone replacement Sepsis (< 1 month) Serious lung disease, including pneumonia (< 1 month) Abnormal pulmonary function Acute myocardial infarction Congestive heart failure (< 1 month) History of inflammatory bowel disease Medical patient at bed rest Age 61-74 Arthroscopic surgery Major open surgery (> 45 min) Laparoscopic surgery (> 45 min) Malignancy Confined to bed (> 72 hours) Immobilizing plaster cast Central venous access Age >= 75 History of VTE Family history of VTE Factor V Leiden Prothrombin [id number] Lupus anticoagulant Anticardiolipin antibodies Elevated serum homocysteine Heparin-induced thrombocytopenia Other congenital or acquired thrombophilia Stroke (< 1 month) Elective arthroplasty Hip, pelvis, or leg fracture Acute spinal cord injury (< 1 month) Prophylaxis Regimen Total Risk Factor Score Risk Level Prophylaxis Regimen 0-1 Low Early ambulation 2 Moderate Order ONE of the following: *Sequential Compression Device (SCD) *Heparin 5000 units SQ BID 3-4 Higher Order ONE of the following medications: *Heparin 5000 units SQ TID *Enoxaparin/Lovenox 40 mg SQ daily (WT < 150 kg, CrCl > 30 mL/min) *Enoxaparin/Lovenox 30 mg SQ daily (WT < 150 kg, CrCl > 10-29 mL/min) *Enoxaparin/Lovenox 30 mg SQ BID (WT < 150 kg, CrCl > 30 mL/min) AND/OR *Sequential Compression Device (SCD) 5 or more Highest Order ONE of the following medications: *Heparin 5000 units SQ TID (Preferred with Epidurals) *Enoxaparin/Lovenox 40 mg SQ daily (WT < 150 kg, CrCl > 30 mL/min) *Enoxaparin/Lovenox 30 mg SQ daily (WT < 150 kg, CrCl > 10-29 mL/min) *Enoxaparin/Lovenox 30 mg SQ BID (WT < 150 kg, CrCl > 30 mL/min) AND *Sequential Compression Device (SCD) Assessment and Plan Assessment and Plan 56 y/o female with a PMHx of ADHD, rheumatoid arthritis, and systemic lupus erythematous presenting after failing out patient therapy for dog bite. Problem List: (1) Dog bite of right hand with infection ICD Codes: S61.451A - Open bite of right hand, initial encounter; L08.9 - Local infection of the skin and subcutaneous tissue, unspecified; W54.0XXA - Bitten by dog, initial encounter Plan: Patient will undergo surgical intervention with hand. Symptoms improved significantly with broad-spectrum antibiotics Discussed with the patient about her treatment course, and pain control We'll follow-up with her after surgical intervention Tetanus shot given a prior ER visit (2) Rheumatoid arthritis ICD Codes: M06.9 - Rheumatoid arthritis, unspecified Status: Chronic Plan: Controlled at this time We'll continue patient's home medication (3) ADHD (attention deficit hyperactivity disorder) ICD Codes: F90.9 - Attention-deficit hyperactivity disorder, unspecified type Status: Chronic Plan: Controlled at this time Continue patient home regiment (4) Depression ICD Codes: F32.9 - Major depressive disorder, single episode, unspecified Status: Chronic Plan: Having some insomnia, but denies depressive symptoms. Treat insomnia with melatonin 5 mg as needed for sleep. (5) Nutrition, metabolism, and development symptoms ICD Codes: R63.8 - Other symptoms and signs concerning food and fluid intake Plan: Fluids: Continue IV hydration DVT ppx: Ambulatory, SCDs. GI ppx: not indicated. Nutrition: NPO See the residents documentation for details. I saw and evaluated the patient regarding the luis portions of this evaluation and agree with the residents findings and plans as written. Parts of this note were created using [employer] voice recognition software program. While efforts were made to correct any mistakes made by this software, some mistakes, errors, and omissions may remain in the final note that were not caught when the note was originally created. Plan of care was discussed and agreed upon with the patient as specifically documented in the above note. An opportunity to ask questions with explanation was provided. Patient voiced understanding on all information reviewed and discussed. Physician Certification 2 Midnight Certification Type: Admission for Inpatient Services Order for Inpatient Services The services are ordered in accordance with Medicare regulations or non- Medicare payer requirements, as applicable. In the case of services not specified as inpatient-only, they are appropriately provided as inpatient services in accordance with the 2-midnight benchmark. Estimated LOS (days): 2 days is the estimated time the patient will need to remain in the hospital, assuming treatment plan goals are met and no additional complications. Post-Hospital Plan: Home Problem Qualifiers (1) Dog bite of right hand with infection: Qualified Codes: S61.451A - Open bite of right hand, initial encounter; L08.9 - Local infection of the skin and subcutaneous tissue, unspecified; W54.0XXA - Bitten by dog, initial encounter Jasvir Duffy MD May 16, 2017 15:59
[2017-05-16] MEDS ORDERED: LIDOCAINE HCL 2% 50 ML VIAL ONE (16:22)
[2017-05-16] MEDS ORDERED: BUPIVACAINE HCL PF 0.5% 30 ML VIAL ONE (16:22)
[2017-05-16] MEDS ORDERED: MUPIROCIN 2% OINT 22 GM TUBE ONE (16:23)
[2017-05-16] MEDS ORDERED: NEOMYCIN/POLYMYXIN 1 ML G.U. IRRIGANT ONE (16:25)
[2017-05-16] MEDS ORDERED: DO NOT ADM ANY ANTICOAGULANT DRUGS PRN (17:16)
--- NOTE | 2017-05-16 17:25 | PD.OP ---
Operative Report Preoperative Diagnosis: (1) Dog bite of right hand with infection Postoperative Diagnosis: (1) Dog bite of right hand with infection (2) septic arthritis Metacarpophalangeal joint right index finger Procedure: exploration, debridement right hand arthrotomy and wash MP joint right index finger Anesthesia: general Surgeon: Mendoza [place] Human Resources Team Member(s): derek Operation and Findings: laceration deep extending to the 2nd metacarpal collection within MP joint index finger right hand Mendoza [place] MD May 16, 2017 17:25
[2017-05-16] MEDS ORDERED: *PROMETHAZINE 25 MG/ML VIAL PERIprocedural use ONLY ONE (17:39)
[2017-05-16] MEDS ORDERED: *morphine SULFATE 4 MG/ML PERIprocedure ONLY ONE (17:57)
[2017-05-16] MEDS ORDERED: *HYDROmorphone PF 1 MG VIAL PERIprocedural Use ONLY ONE (18:06)
[2017-05-16] MEDS ORDERED: NALOXONE HCL 0.4 MG/ML AMP IV PUSH PRN (18:15)
[2017-05-16] MEDS ORDERED: HYDROmorphone HCL PF 2 MG/ML VIAL IV PUSH ONE (18:15)
[2017-05-16] MEDS: ACETAMINOPHEN/HYDROcodone 325 MG/5 MG TAB PO PRN (22:44)
[2017-05-17] VITALS (7 sets, daily range): BP systolic 107–128; BP diastolic 53–62; PULSE 63–83; RESP 16–20; TEMP 96–98.5; O2SAT 94–98
[2017-05-17] MEDS: SODIUM CHLOR 0.9% 1000 ML INJ 1,000 ML IV SCH ×3 (01:54→20:04)
[2017-05-17] MEDS: ACETAMINOPHEN/HYDROcodone 325 MG/5 MG TAB PO PRN ×3 (03:37→12:30)
[2017-05-17] MEDS: CLINDAMYCIN 600 MG/NS PREMIX 50 ML IV SCH ×3 (03:37→20:05)
[2017-05-17] MEDS: IBUPROFEN 600 MG TAB PO SCH ×4 (03:38→20:05)
[2017-05-17] MEDS: SODIUM CHLORIDE 0.9% FLUSH 10 ML FLUSH IV FLUSH SCH ×2 (08:43→20:05)
[2017-05-17] MEDS: HYDROXYCHLOROQUINE SULFATE 200 MG TAB PO SCH ×2 (08:44→20:05)
[2017-05-17] MEDS: SULFAMETHOXAZOLE-TRIMETHOPRIM DS 800-160 MG TAB PO SCH ×2 (08:44→20:04)
--- NOTE | 2017-05-17 11:51 | HHI.FPPN ---
Subjective Remarks Patient seen and examined this morning. Patient had her incision and drainage done yesterday and states everything went well. She has artery been visited by the hand surgeon this morning told her she would be staying 1 more day at least. Her pain is well controlled on her current medications. She denies any loss of sensation or motion in her right hand. Patient denies any chest pain/ rest of breath. Patient denies any dizziness. (Zenaida Johnson MD R2) Objective Vitals Vital Signs Date Time Temp Pulse Resp B/P (MAP) Pulse Ox O2 Delivery O2 Flow Rate FiO2 05/17/17 08:00 96.6 63 16 128/62 (84) 97 05/17/17 04:00 96.9 64 18 107/53 (71) 96 05/17/17 00:00 96.0 80 20 121/56 (77) 94 05/16/17 20:00 96.6 66 20 143/68 (93) 95 05/16/17 18:24 97.8 71 17 148/63 (91) 98 Room Air 05/16/17 18:15 71 17 141/68 (92) 97 Room Air 05/16/17 18:00 67 17 146/70 (95) 98 Room Air 05/16/17 17:45 68 21 149/70 (96) 100 Room Air 05/16/17 17:30 73 20 138/62 (87) 98 Room Air 05/16/17 17:17 98.3 86 19 145/84 (104) 98 Room Air 05/16/17 12:47 66 05/16/17 12:05 96.5 64 20 131/62 (85) 97 I/O 05/16/17 05/16/17 05/16/17 05/17/17 05/17/17 05/17/17 07:00 15:00 23:00 07:00 15:00 23:00 Intake Total 50 ml 1020 ml 1600 ml Output Total 10 ml 200 ml Balance 50 ml 1010 ml 1400 ml Intake Oral 0 ml 600 ml IV Total 50 ml 120 ml 1000 ml Other 900 ml Output Urine Total 200 ml Estimated Blood Loss 10 ml # Voids 2 0 3 # Bowel Movements 1 (Zenaida Johnson MD R2) Result Diagram: 05/16/1731 05/16/17 0831 Objective Remarks General: Healthy appearing female, no distress Skin: laceration wrapped in bandages. Flexes right arm without any problem. Normal sensation. HEENT: Normocephalic CV: RRR, no murmur Lungs: CTAB Abdomen: Soft, nontender, nondistended (Zenaida Johnson MD R2) A/P Assessment and Plan 56 y/o female with a PMHx of ADHD, rheumatoid arthritis, and systemic lupus erythematous presenting after failing out patient therapy for dog bite. Discharge Planning Discharge is pending recommendations of hand surgeon (Zenaida Johnson MD R2) Problem List: (1) Dog bite of right hand with infection ICD Codes: S61.451A - Open bite of right hand, initial encounter; L08.9 - Local infection of the skin and subcutaneous tissue, unspecified; W54.0XXA - Bitten by dog, initial encounter Plan: Postop day 1 from emergent exploration, wash, debridement of right hand. Symptoms improved significantly with broad-spectrum antibiotics Discussed with the patient about her treatment course, and pain control We'll follow-up pending recommendations of hand surgeon Tetanus vaccine was given (2) Rheumatoid arthritis ICD Codes: M06.9 - Rheumatoid arthritis, unspecified Status: Chronic Plan: Controlled at this time We'll continue patient's home medication (3) ADHD (attention deficit hyperactivity disorder) ICD Codes: F90.9 - Attention-deficit hyperactivity disorder, unspecified type Status: Chronic Plan: Controlled at this time Continue patient home regiment (4) Depression ICD Codes: F32.9 - Major depressive disorder, single episode, unspecified Status: Chronic Plan: Having some insomnia, but denies depressive symptoms. Treat insomnia with melatonin 5 mg as needed for sleep. (5) Nutrition, metabolism, and development symptoms ICD Codes: R63.8 - Other symptoms and signs concerning food and fluid intake Plan: Fluids: Continue IV hydration DVT ppx: Ambulatory, SCDs. GI ppx: not indicated. Nutrition: Regular diet (Zenaida Johnson MD R2) Problem List: (1) Dog bite of right hand with infection ICD Codes: S61.451A - Open bite of right hand, initial encounter; L08.9 - Local infection of the skin and subcutaneous tissue, unspecified; W54.0XXA - Bitten by dog, initial encounter Plan: Postop day 1 from emergent exploration, wash, debridement of right hand. Symptoms improved significantly with broad-spectrum antibiotics Discussed with the patient about her treatment course, and pain control We'll follow-up pending recommendations of hand surgeon Tetanus vaccine was given (2) Rheumatoid arthritis ICD Codes: M06.9 - Rheumatoid arthritis, unspecified Status: Chronic Plan: Controlled at this time We'll continue patient's home medication (3) ADHD (attention deficit hyperactivity disorder) ICD Codes: F90.9 - Attention-deficit hyperactivity disorder, unspecified type Status: Chronic Plan: Controlled at this time Continue patient home regiment (4) Depression ICD Codes: F32.9 - Major depressive disorder, single episode, unspecified Status: Chronic Plan: Having some insomnia, but denies depressive symptoms. Treat insomnia with melatonin 5 mg as needed for sleep. (5) Nutrition, metabolism, and development symptoms ICD Codes: R63.8 - Other symptoms and signs concerning food and fluid intake Plan: Fluids: Continue IV hydration DVT ppx: Ambulatory, SCDs. GI ppx: not indicated. Nutrition: Regular diet See the residents documentation for details. I saw and evaluated the patient regarding the luis portions of this evaluation and agree with the residents findings and plans as written. Parts of this note were created using [employer] voice recognition software program. While efforts were made to correct any mistakes made by this software, some mistakes, errors, and omissions may remain in the final note that were not caught when the note was originally created. Plan of care was discussed and agreed upon with the patient as specifically documented in the above note. An opportunity to ask questions with explanation was provided. Patient voiced understanding on all information reviewed and discussed. (Jasvir Duffy MD) Problem Qualifiers (1) Dog bite of right hand with infection: Qualified Codes: S61.451A - Open bite of right hand, initial encounter; L08.9 - Local infection of the skin and subcutaneous tissue, unspecified; W54.0XXA - Bitten by dog, initial encounter Zenaida Johnson MD R2 May 17, 2017 11:51 Jasvir Duffy MD May 18, 2017 10:36
--- NOTE | 2017-05-17 14:23 | MP ---
cc: MARY LOU KEYS MD DATE OF SURGERY: 05/16/2017. PREOPERATIVE DIAGNOSIS: Dog bite with infection right hand. POSTOPERATIVE DIAGNOSIS Dog bite with infection right hand with septic arthritis index finger metacarpophalangeal joint, right hand. OPERATIVE PROCEDURE PERFORMED: Exploration wash, debridement right hand laceration, arthrotomy and wash index finger metacarpophalangeal joint. SURGEON: Mayr Lou Keys M.D. ANESTHESIA: General. ESTIMATED BLOOD LOSS: Minimal. TOURNIQUET TIME: Sixteen minutes at 250 mmHg. COMPLICATIONS: No complications. SPECIMEN: Sent from right hand for culture and sensitivity and another specimen was sent from the MP joint index finger for culture and sensitivity specimen for pathology. CONDITION: The patient was recovered and sent to the room in stable condition. INDICATIONS FOR THE PROCEDURE: The patient is a 56-year-old female who presented with history of dog bite to the right hand about one week ago. The patient was admitted yesterday with worsening symptoms. She had suturing of the laceration at an outside facility. On examination, she had sutured laceration on the dorsal aspect of the right hand just proximal to the index and middle finger metacarpophalangeal joint in a curvilinear fashion. There was evidence of swelling over the second and third metacarpophalangeal joint with associated redness. No drainage noted. She had x-rays which were negative for foreign body. She was consented for exploration, wash, debridement right hand. The patient was explained the risks and benefits of the procedure. DESCRIPTION OF THE PROCEDURE IN DETAIL: The patient was brought to the operating room and under general anesthesia, the right upper extremity was thoroughly prepped and draped and the previously placed sutures were removed. The limb was elevated and the tourniquet was inflated to 250 mmHg. Exploration of the wound was carried out. Intraoperative findings included a curvilinear laceration over the dorsal aspect of the hand just proximal to the index and middle finger metacarpophalangeal joint measuring about 4 cm. The laceration was extending deep to the extensor tendon to the second metacarpal bone. On further exploration, there was evidence of bulging of the second metacarpophalangeal joint synovium and capsule with yellowish material within the synovium and the MP joint was open and there was evidence of yellowish fluid within the synovium which was sent for culture sensitivity. The third metacarpophalangeal joint region was explored. No evidence of involvement of the third metacarpophalangeal joint was noted. Thorough wash from the wound was carried out using normal saline mixed with irrigant. About a liter of solution was used. She also had another laceration and the palm which was opened up and washed. The tourniquet is deflated. Total tourniquet time was 16 minutes. She had good distal circulation after the tourniquet. Packing of the second index finger metacarpophalangeal joint and the wound was carried out with 1/4 inch Iodoform packing material. The skin was loosely approximated using 4-0 nylon in a horizontal mattress interrupted fashion. A bulky hand dressing was applied, which was held in place by Sof-Rol and a bias hand wrap. The patient was recovered and sent to the recovery room in stable condition. The plan will be to keep the part elevated to an IV pole. Will obtain infectious disease consult for IV antibiotics and hand surgery will follow for packing change. Mary Lou Keys MD SE/FELIX /5:30 PM /1:56 PM
[2017-05-17] MEDS: oxyCODONE/ACETAMINOPHEN 10 MG/325 MG TAB PO PRN (18:30)
[2017-05-18] VITALS: BP 124/59; PULSE 69; RESP 18; TEMP 97.2; O2SAT 97
[2017-05-18] MEDS: oxyCODONE/ACETAMINOPHEN 10 MG/325 MG TAB PO PRN ×3 (00:07→12:59)
[2017-05-18] MEDS: CLINDAMYCIN 600 MG/NS PREMIX 50 ML IV SCH (03:10)
[2017-05-18] MEDS: IBUPROFEN 600 MG TAB PO SCH ×4 (03:11→20:55)
[2017-05-18 04:00] VITALS: BP 105/75; PULSE 66; RESP 18; TEMP 97.8; O2SAT 98
[2017-05-18 08:00] VITALS: BP 143/67; PULSE 68; RESP 16; TEMP 95.5; O2SAT 99
[2017-05-18] MEDS: SODIUM CHLORIDE 0.9% FLUSH 10 ML FLUSH IV FLUSH SCH ×2 (09:00→20:54)
[2017-05-18] MEDS: SULFAMETHOXAZOLE-TRIMETHOPRIM DS 800-160 MG TAB PO SCH (09:19)
[2017-05-18] MEDS: HYDROXYCHLOROQUINE SULFATE 200 MG TAB PO SCH ×2 (09:19→20:54)
--- NOTE | 2017-05-18 10:36 | HHI.FPPN ---
Subjective Remarks Patient seen and examined at bedside. No acute events overnight. Pt stated her pain is well controlled, currently rates pain as 4/10. (Apolinar Jones MD, R1) Objective Vitals Vital Signs Date Time Temp Pulse Resp B/P (MAP) Pulse Ox O2 Delivery O2 Flow Rate FiO2 05/18/17 08:00 95.5 68 16 143/67 (92) 99 05/18/17 04:00 97.8 66 18 105/75 (85) 98 05/18/17 00:00 97.2 69 18 124/59 (80) 97 05/17/17 20:00 97.6 77 20 125/60 (81) 98 05/17/17 19:40 83 05/17/17 16:00 98.5 81 18 126/56 (79) 97 05/17/17 12:00 97.0 82 18 115/56 (75) 98 I/O 05/17/17 05/17/17 05/17/17 05/18/17 05/18/17 05/18/17 07:00 15:00 23:00 07:00 15:00 23:00 Intake Total 1600 ml 2500 ml 770 ml Output Total 200 ml 1500 ml 25 ml Balance 1400 ml 1000 ml 745 ml Intake Oral 600 ml 1400 ml 720 ml IV Total 1000 ml 1100 ml 50 ml Output Urine Total 200 ml 1500 ml Gastric Drainage Total 25 ml # Voids 3 2 # Bowel Movements 1 1 0 (Apolinar Jones MD, R1) Result Diagram: 05/16/17 0831 05/16/17 0831 Imaging Last Impressions Hand X-Ray 05/14/17 0000 Signed Impressions: Service Date/Time: Sunday, May 14, 2017 17:05 - CONCLUSION: 1. No acute fracture or dislocation. No radiopaque foreign bodies or significance subcutaneous emphysema. Augustine Leblanc MD Objective Remarks General: Healthy appearing female, no distress Skin: laceration wrapped in bandages. Flexes right arm without any problem. Normal sensation. +2 radial pulse. Normal sensation HEENT: Normocephalic CV: Normal S1 and S2. RRR, no murmur Lungs: CTA BL Abdomen: Soft, nontender, nondistended (Apolinar Jones MD, R1) A/P Assessment and Plan 56 y/o female with a PMHx of ADHD, rheumatoid arthritis, and systemic lupus erythematous presenting after failing out patient therapy for dog bite. Discharge Planning Discharge is pending recommendations of hand surgeon (Apolinar Jones MD, R1) Problem List: (1) Dog bite of right hand with infection ICD Codes: S61.451A - Open bite of right hand, initial encounter; L08.9 - Local infection of the skin and subcutaneous tissue, unspecified; W54.0XXA - Bitten by dog, initial encounter Plan: Postop day 2 from emergent exploration, wash, debridement of right hand. Symptoms improved significantly with broad-spectrum antibiotics Discussed with the patient about her treatment course, and pain control We'll follow-up pending recommendations of hand surgeon -wound cx no growth 48hrs -ID consulted Tetanus vaccine was given (2) Rheumatoid arthritis ICD Codes: M06.9 - Rheumatoid arthritis, unspecified Status: Chronic Plan: Controlled at this time We'll continue patient's home medication (3) ADHD (attention deficit hyperactivity disorder) ICD Codes: F90.9 - Attention-deficit hyperactivity disorder, unspecified type Status: Chronic Plan: Controlled at this time Continue patient home regiment (4) Depression ICD Codes: F32.9 - Major depressive disorder, single episode, unspecified Status: Chronic Plan: Having some insomnia, but denies depressive symptoms. Treat insomnia with melatonin 5 mg as needed for sleep. (5) Nutrition, metabolism, and development symptoms ICD Codes: R63.8 - Other symptoms and signs concerning food and fluid intake Plan: Fluids: Continue IV hydration DVT ppx: Ambulatory, SCDs. GI ppx: not indicated. Nutrition: Regular diet (Apolinar Jones MD, R1) Problem List: (1) Dog bite of right hand with infection ICD Codes: S61.451A - Open bite of right hand, initial encounter; L08.9 - Local infection of the skin and subcutaneous tissue, unspecified; W54.0XXA - Bitten by dog, initial encounter Plan: Postop day 2 from emergent exploration, wash, debridement of right hand. Symptoms improved significantly with broad-spectrum antibiotics Discussed with the patient about her treatment course, and pain control We'll follow-up pending recommendations of hand surgeon -wound cx no growth 48hrs -ID consulted Tetanus vaccine was given (2) Rheumatoid arthritis ICD Codes: M06.9 - Rheumatoid arthritis, unspecified Status: Chronic Plan: Controlled at this time We'll continue patient's home medication (3) ADHD (attention deficit hyperactivity disorder) ICD Codes: F90.9 - Attention-deficit hyperactivity disorder, unspecified type Status: Chronic Plan: Controlled at this time Continue patient home regiment (4) Depression ICD Codes: F32.9 - Major depressive disorder, single episode, unspecified Status: Chronic Plan: Having some insomnia, but denies depressive symptoms. Treat insomnia with melatonin 5 mg as needed for sleep. (5) Nutrition, metabolism, and development symptoms ICD Codes: R63.8 - Other symptoms and signs concerning food and fluid intake Plan: Fluids: Continue IV hydration DVT ppx: Ambulatory, SCDs. GI ppx: not indicated. Nutrition: Regular diet See the residents documentation for details. I saw and evaluated the patient regarding the luis portions of this evaluation and agree with the residents findings and plans as written. Parts of this note were created using [employer] voice recognition software program. While efforts were made to correct any mistakes made by this software, some mistakes, errors, and omissions may remain in the final note that were not caught when the note was originally created. Plan of care was discussed and agreed upon with the patient as specifically documented in the above note. An opportunity to ask questions with explanation was provided. Patient voiced understanding on all information reviewed and discussed. (Jasvir Duffy MD) Problem Qualifiers (1) Dog bite of right hand with infection: Qualified Codes: S61.451A - Open bite of right hand, initial encounter; L08.9 - Local infection of the skin and subcutaneous tissue, unspecified; W54.0XXA - Bitten by dog, initial encounter Apolinar Jones MD, R1 May 18, 2017 10:36 Jasvir Duffy MD May 26, 2017 09:31
--- NOTE | 2017-05-18 11:42 | HHI.PR ---
Subjective Remarks complains of mild pain complaint with limb elevation and range of motion exercises no fever still complains of numbness distal to the laceration Objective Vital Signs Date Time Temp Pulse Resp B/P (MAP) Pulse Ox O2 Delivery O2 Flow Rate FiO2 05/18/17 08:00 95.5 68 16 143/67 (92) 99 05/18/17 04:00 97.8 66 18 105/75 (85) 98 05/18/17 00:00 97.2 69 18 124/59 (80) 97 05/17/17 20:00 97.6 77 20 125/60 (81) 98 05/17/17 19:40 83 05/17/17 16:00 98.5 81 18 126/56 (79) 97 05/17/17 12:00 97.0 82 18 115/56 (75) 98 I/O 05/17/17 05/17/17 05/17/17 05/18/17 05/18/17 05/18/17 07:00 15:00 23:00 07:00 15:00 23:00 Intake Total 1600 ml 2500 ml 770 ml Output Total 200 ml 1500 ml 25 ml Balance 1400 ml 1000 ml 745 ml Intake Oral 600 ml 1400 ml 720 ml IV Total 1000 ml 1100 ml 50 ml Output Urine Total 200 ml 1500 ml Gastric Drainage Total 25 ml # Voids 3 2 # Bowel Movements 1 1 0 right hand: dressing and packing in place mild drainage noted mild swelling and redness noted terminal degrees of flexion of the index and middle finger MP joint painful numbness distal to the laceration cultures and gram stain: negative to date Result Diagram: 05/16/1731 05/16/17 0831 Assessment and Plan Assessment and Plan 56 year old female s/p I and D, arthrotomy index finger MP Joint POD 2 right hand Plan: packing removed wound cleaned with normal saline dry dressing applied range of motion exercises may need senior care IV antibiotics due to septic arthritis intra operatively ID recommendation hand surgery will follow. Mendoza Houston MD May 18, 2017 11:42
[2017-05-18 12:00] VITALS: BP 143/72; PULSE 70; RESP 16; TEMP 97.5; O2SAT 99
[2017-05-18] MEDS: SODIUM CHLOR 0.9% 1000 ML INJ 1,000 ML IV SCH ×2 (13:10→20:54)
--- NOTE | 2017-05-18 14:34 | PD.ID.CON ---
History of Present Illness Service ID Consult Requested By Reason for Consult Evaluation and Mment of septic arthritis of the MCP joints of right hand. Primary Care Physician Unknown Diagnoses: History of Present Illness is a 56 y/o CF with PMHx of RA and Lupus who is on Plaquanil. She reports being on once a month Semsaza injection (DMARD injectables) but last shot was 6 months back. She denies being on steroids for her RA or Lupus. Patient reports she has a rescue dog was bitten several other members of the family. She was reportedly trying to remove a piece of tissue from his oral cavity when dog bit her. This incident occurred approximately 5 days prior to admission. She went to an acute care clinic in [place] on May 10 where she received a tetanus shot in the ED. She had approximately a 5 cm laceration on the dorsal aspect of her right hand near her second and third MCP joints as well as several other lacerations. Patient had a total of 8 sutures placed. Patient was discharged on oral doxycycline as well as oral Flagyl. Patient reports she was not consistently compliant as she got nauseous with this combination of medicines. Of note patient also consumes alcohol on sure if the Flagyl caused a disulfiram reaction. Patient denies any fever chills or night sweats. Patient started noticing streaks of erythema that are traveling up to the lateral aspect of her arm. Due to increasing erythema pain and swelling he should presented to the emergency department. Hand surgery has seen the patient and performed exploration and incision and drainage of the involved area. Upon discussion with him it appears that patient had purulence into the joint and he would like for this to be treated as a septic joint. Upon further discussion with Dr. Lockhart it appears that she still has purulence despite exploration and debridement and antibiotics. Her current antibiotic regimen is Bactrim oral as well as clindamycin IV. I discussed with the patient her nature of allergy to penicillin to which she reported headache. This incident occurred 15 years back at which time she had another infection unsure that this headache was a part of the infectious disease process or goes up to intolerance to penicillin. Explained to the patient that given the acuity and seriousness of the infection she has I would recommend using penicillin which is the drug of choice. Patient asked me several questions about allergies and adverse reactions which I answered to her satisfaction. She agreed to a trial of penicillin or derivatives. ID is consulted for evaluation and management of septic arthritis of several MCP joints of her right hand. Review of Systems ROS Limitations: Poor Historian Constitutional: DENIES: Diaphoretic episodes, Fatigue, Fever, Weight gain, Weight loss, Chills, Dizziness, Change in appetite, Night Sweats Endocrine: DENIES: Abnorml menstrual pattern, Heat/cold intolerance, Polydipsia , Polyuria, Polyphagia Eyes: DENIES: Blurred vision, Diplopia, Eye inflammation, Eye pain, Vision loss , Photosensitivity, Double Vision Ears, nose, mouth, throat: DENIES: Tinnitus, Hearing loss, Vertigo, Nasal discharge, Oral lesions, Throat pain, Hoarseness, Ear Pain, Running Nose, Epistaxis, Sinus Pain, Toothache, Odynophagia Respiratory: DENIES: Apneas, Cough, Snoring, Wheezing, Hemoptysis, Sputum production, Shortness of breath Cardiovascular: DENIES: Chest pain, Palpitations, Syncope, Dyspnea on Exertion , PND, Lower Extremity Edema, Orthopnea, Claudication Gastrointestinal: DENIES: Abdominal pain, Black stools, Bloody stools, Constipation, Diarrhea, Nausea, Vomiting, Difficulty Swallowing, Anorexia Genitourinary: DENIES: Abnormal vaginal bleeding, Dysmenorrhea, Dyspareunia, Sexual dysfunction, Urinary frequency, Urinary incontinence, Urgency, Hematuria , Dysuria, Nocturia, Vaginal discharge Musculoskeletal: COMPLAINS OF: Joint pain, Joint Swelling, DENIES: Muscle aches , Stiffness, Back pain, Neck pain Integumentary: COMPLAINS OF: Abnormal pigmentation, DENIES: Pruritus, Rash, Nail changes, Breast masses, Breast skin changes, Nipple discharge Hematologic/lymphatic: DENIES: Bruising, Lymphadenopathy Immunologic/allergic: DENIES: Eczema, Urticaria Neurologic: DENIES: Abnormal gait, Headache, Localized weakness, Paresthesias, Seizures, Speech Problems, Tremor, Poor Balance Psychiatric: DENIES: Anxiety, Confusion, Mood changes, Depression, Hallucinations, Agitation, Suicidal Ideation, Homicidal Ideation, Delusions Past Family Social History Allergies: Coded Allergies: No Known Allergies (Verified Allergy, Unknown, 05/18/17) Past Medical History RA Lupus Anxiety / Depression / ADHD Past Surgical History Appendectomy, bunion removal, total (partial hysterectomy), facial lift surgery Reported Medications Reported Meds & Active Scripts Active Tramadol (Tramadol HCl) 50 Mg Tab 50 Mg PO Q4H PRN Metronidazole 500 Mg Tab 500 Mg PO TID 10 Days Doxycycline Hyclate 100 Mg Cap 100 Mg PO BID Vyvanse (Lisdexamfetamine Dimesylate) 70 Mg Cap 70 Mg PO DAILY Reported Ibuprofen 800 Mg Tab 800 Mg PO Q8H PRN Estradiol 1 Mg Tab 1 Mg PO DAILY Hydroxychloroquine (Hydroxychloroquine Sulfate) 200 Mg Tab 200 Mg PO BID Takw with food Active Ordered Medications Current Medications Medications (Trade) Dose Ordered Sig/Yeison Route Start Time Stop Time Status Last Admin (NS Flush) 2 ml UNSCH PRN IV FLUSH 05/14/17 21:15 (NS Flush) 2 ml BID IV FLUSH 05/15/17 09:00 05/17/17 08:43 (Zofran Inj) 4 mg Q6H PRN IV PUSH 05/15/17 03:45 05/15/17 23:25 (Melatonin) 5 mg HS PRN PO 05/15/17 05:30 (Plaquenil) 200 mg BID PO 05/15/17 09:00 05/18/17 09:19 Clindamycin/ Sodium Chloride 50 ml @ 100 mls/hr Q8H IV 05/15/17 12:00 05/18/17 03:10 (Bactrim Ds 800-160 Mg) 1 tab Q12HR PO 05/15/17 12:45 05/18/17 09:19 (Lopressor) 25 mg MACHINE ASSEMBLER PRN PO 05/15/17 20:45 05/18/17 20:44 (Betadine 5% Antisepsis Kit) 1 applic MACHINE ASSEMBLER PRN EACH NARE 05/15/17 20:45 05/18/17 20:44 (Chlorhexidine 2% Cloth) 3 pack MACHINE ASSEMBLER PRN TOPICAL 05/15/17 20:45 05/18/17 20:44 (Motrin) 600 mg Q6H PO 05/16/17 11:00 05/18/17 12:58 (Tylenol) 650 mg Q4H PRN PO 05/16/17 10:30 Sodium Chloride 1,000 ml @ 128 mls/hr Q7H49M IV 05/16/17 10:30 05/18/17 13:10 ([place] 5-325 Mg) 1 tab Q4H PRN PO 05/16/17 18:15 05/17/17 12:30 (Percocet 10-325 Mg) 1 tab Q6H PRN PO 05/16/17 18:15 05/18/17 12:59 (Narcan Inj) 0.4 mg UNSCH PRN IV PUSH 05/16/17 18:15 Family History Mom -lung cancer at 68 y/o previous smoker Dad - passed from CVA at age of 68 y/o Siblings - 5 brothers and sisters: RA in oldest brother, peripheral vascular disease Children - 2 male children - ADD and anxiety Social History Non smoker No marijuana Drink or two per week - kendall. Physical Exam Vital Signs Vital Signs Date Time Temp Pulse Resp B/P (MAP) Pulse Ox O2 Delivery O2 Flow Rate FiO2 05/18/17 12:00 97.5 70 16 143/72 (95) 99 05/18/17 08:00 95.5 68 16 143/67 (92) 99 05/18/17 04:00 97.8 66 18 105/75 (85) 98 05/18/17 00:00 97.2 69 18 124/59 (80) 97 05/17/17 20:00 97.6 77 20 125/60 (81) 98 05/17/17 19:40 83 05/17/17 16:00 98.5 81 18 126/56 (79) 97 Physical Exam GENERAL: This is a well-nourished, well-developed patient, in no apparent distress. SKIN: No rashes, ecchymoses or lesions. Cool and dry. HEAD: Atraumatic. Normocephalic. No temporal or scalp tenderness. EYES: Pupils equal round and reactive. Extraocular motions intact. No scleral icterus. No injection or drainage. ENT: Nose without bleeding, purulent drainage or septal hematoma. Throat without erythema, tonsillar hypertrophy or exudate. Uvula midline. Airway patent. NECK: Trachea midline. Supple, nontender, no meningeal signs. CARDIOVASCULAR: HS audible. RESPIRATORY: Clear to auscultation. Breath sounds equal bilaterally. GASTROINTESTINAL: Abdomen soft, non-tender, nondistended. MUSCULOSKELETAL: Right hand in dressing. NEUROLOGICAL: Awake and alert. Gross exam normal. Psych cooperative. IV line sites with no e.o infection. Laboratory Date/Time Source Procedure Growth Status 05/16/17 16:41 Wound Hand Fungal Smear - Final NO FUNGAL ELEMENTS SEEN. Resulted 05/16/17 16:41 Wound Hand Fungal Culture Pending Resulted Result Diagram: 05/16/17 0831 05/16/17 0831 Imaging Last Impressions Hand X-Ray 05/14/17 0000 Signed Impressions: Service Date/Time: Sunday, May 14, 2017 17:05 - CONCLUSION: 1. No acute fracture or dislocation. No radiopaque foreign bodies or significance subcutaneous emphysema. Augustine Leblanc MD Assessment and Plan Assessment and Plan Dog bite related infected tenosynovitis Septic arthritis (Partially treated with Doxy and flagyl as outpt prior to surgery) Rheumatoid arthritis. Lupus on Plaquanil. Nausea/vomiting on Flagyl oral. Non response to oral antibiotics. Penicillin intolerance: headache 15 yrs back. Allergy section updated. Recs: DC Bactrim DC Clinda Start Unasyn IV Follow cultures follow clinically to assess response to Unasyn. Amadou schroeder RN about challenge to Unasyn and to call me or primary team if any adverse reaction. Lucero Santos MD May 18, 2017 14:34
[2017-05-18 16:00] VITALS: BP 138/65; PULSE 72; RESP 18; TEMP 97; O2SAT 98
[2017-05-18] MEDS ORDERED: AMPICILLIN-SULBACTAM INJ 1,500 MG in SODIUM CHLORIDE 0.9% INJ 100 ML IV SCH (16:00)
[2017-05-18] MEDS: ACETAMINOPHEN/HYDROcodone 325 MG/5 MG TAB PO PRN (19:10)
[2017-05-18 19:41] VITALS: PULSE 71
[2017-05-19] VITALS: BP 147/69; PULSE 67; RESP 20; TEMP 97.2; O2SAT 96
[2017-05-19] MEDS: AMPICILLIN-SULBACTAM INJ 1,500 MG in SODIUM CHLORIDE 0.9% INJ 100 ML IV SCH ×4 (00:54→17:56)
[2017-05-19] MEDS: oxyCODONE/ACETAMINOPHEN 10 MG/325 MG TAB PO PRN ×4 (00:54→20:59)
[2017-05-19] MEDS: SODIUM CHLOR 0.9% 1000 ML INJ 1,000 ML IV SCH ×3 (00:55→15:24)
[2017-05-19 03:51] VITALS: BP 140/63; PULSE 63; RESP 18; TEMP 96.7; O2SAT 97
[2017-05-19] MEDS: IBUPROFEN 600 MG TAB PO SCH ×3 (06:04→16:40)
[2017-05-19 08:00] VITALS: BP 135/63; PULSE 64; RESP 16; TEMP 96.3; O2SAT 97
[2017-05-19] MEDS: SODIUM CHLORIDE 0.9% FLUSH 10 ML FLUSH IV FLUSH SCH ×2 (09:00→21:00)
[2017-05-19] MEDS: HYDROXYCHLOROQUINE SULFATE 200 MG TAB PO SCH ×2 (09:11→20:59)
[2017-05-19 12:00] VITALS: BP 145/71; PULSE 66; RESP 16; TEMP 96.3; O2SAT 97
--- NOTE | 2017-05-19 14:25 | HHI.PR ---
Subjective Remarks complains of mild pain complaint with limb elevation and range of motion exercises no fever still complains of numbness distal to the laceration Objective Vital Signs Date Time Temp Pulse Resp B/P (MAP) Pulse Ox O2 Delivery O2 Flow Rate FiO2 05/19/17 03:51 96.7 63 18 140/63 (88) 97 05/19/17 00:00 97.2 67 20 147/69 (95) 96 05/18/17 19:41 71 05/18/17 16:00 97.0 72 18 138/65 (89) 98 I/O 05/18/17 05/18/17 05/18/17 05/19/17 05/19/17 05/19/17 07:00 15:00 23:00 07:00 15:00 23:00 Intake Total 770 ml 2000 ml 820 ml 868 ml Output Total 25 ml 3 ml Balance 745 ml 2000 ml 817 ml 868 ml Intake Oral 720 ml 2000 ml 720 ml IV Total 50 ml 100 ml 868 ml Output Urine Total 3 ml Gastric Drainage Total 25 ml # Voids 2 7 # Bowel Movements 0 1 1 right hand: decreased swelling, minimal drainage terminal degrees of flexion at the MP joint of index finger decreased sensation distal to laceration cultures: negative Result Diagram: 05/16/1731 05/16/1731 Assessment and Plan Assessment and Plan 56 year old female s/p I and D, arthrotomy index finger MP Joint POD 3 right hand Plan: wound cleaned with normal saline dry dressing applied range of motion exercises antibiotics based on ID recommendations hand surgery will follow. Mendoza Houston MD May 19, 2017 14:25
[2017-05-19] MEDS ORDERED: EPIN1INJ21 SQ (15:16)
[2017-05-19] MEDS ORDERED: EPIN1INJ21 IV PUSH (15:16)
[2017-05-19] MEDS ORDERED: UNAS3INJ IV (15:16)
[2017-05-19] MEDS ORDERED: SOLU250I IV PUSH (15:16)
--- NOTE | 2017-05-19 15:23 | HHI.FF ---
cc: Hattie Mata MD Infusion Therapy Location of Infusion Therapy: [facility] IV Infusion Order Patient Information Appointment Date: May 19, 2017 Patient Weight 84.2 kg Diagnosis: Diagnosis Dog bite related Septic arthritis. Partially treated with oral prior to cultures hence cultures negative. RA,Lupus. Coded Allergies: No Known Allergies (Verified Allergy, Unknown, 05/18/17) Administer Medication Unasyn (Ampicillin Sulbactam) 3 gm IV every 8 hours (Stop date: 06/14/2017) Start Treatment: May 19, 2017 Stop Treatment: Jun 14, 2017 Additional Information Venous access: PICC Line Additional Instructions [x] Peripheral flush and dressing changes per protocol [x] Implanted port and central airline captain: * Implanted port: 10 ml Normal Saline followed by 5 ml Heparin 100 units/ml Heparin flush after each use and monthly to maintain. [] May leave port accessed during therapy. [] May leave peripheral site accessed for duration of therapy. [x] If patient has SOB or respiratory distress, check oxygen saturation. If less than 90% or clinical signs of respiratory distress, administer oxygen at 2 L/min. via nasal cannula and notify physician. [x] Anaphylaxis/Reaction orders: * Stop infusion. * Keep IV line open with saline flush. * Notify physician. * Monitor vital signs every 15 minutes until symptoms resolve. * Check Oxygen saturation; Oxygen at 2 L/min. via nasal cannula if less than 90% or clinical signs of respiratory distress. * Administer diphenhydramine (Benadryl) 25 mg IV STAT, (unless patient has received as pre-med). May repeat once, if necessary. * Solu-Cortef 250 mg IVP over 30-60 seconds, use 100 mg vials for each dissolution. * Epinephrine (1mg/1 ml) 0.3 mg subcutaneously or IVP now with any signs of respiratory distress. * Check with physician for new additional pre-med orders if patient is re- challenged or re-treated. [x] May remove PICC line when treatment complete, after confirming with Physician. [x] If the patient is admitted to the hospital, the ED, or transferred via [facility] , complete transfer form including medication reconciliation order sheet. Laboratory Tests Weekly Labs: CBC w/diff, Creatinine, CRP, LFT's (Hepatic function test) Additional Information Please draw weekly labs, Call with abnormals, change in clinical condition or problems to: Dr.Reba Mata or or covering ID Physician Follow up appt: Patient to schedule follow up appt with Dr.Reba Mata within 10 days post discharge. Follow up with PCP Follow up with other MDs as planned. Counseling: Counseled about medication side effects Counseled about PICC line care and hand hygiene. Counseled to make sure pets not near her PICC line or supplies. Counseled to clean all surfaces prior to laying out antibiotics. Lucero Santos MD May 19, 2017 15:23
--- NOTE | 2017-05-19 15:27 | HHI.IDPN ---
Subjective Subjective Remarks is a 56 y/o CF with PMHx of RA and Lupus who is on Plaquanil. She reports being on once a month Semsaza injection (DMARD injectables) but last shot was 6 months back. She denies being on steroids for her RA or Lupus. Patient reports she has a rescue dog was bitten several other members of the family. She was reportedly trying to remove a piece of tissue from his oral cavity when dog bit her. This incident occurred approximately 5 days prior to admission. She went to an acute care clinic in [place] on May 10 where she received a tetanus shot in the ED. She had approximately a 5 cm laceration on the dorsal aspect of her right hand near her second and third MCP joints as well as several other lacerations. Patient had a total of 8 sutures placed. Patient was discharged on oral doxycycline as well as oral Flagyl. Patient reports she was not consistently compliant as she got nauseous with this combination of medicines. Of note patient also consumes alcohol on sure if the Flagyl caused a disulfiram reaction. Patient denies any fever chills or night sweats. Patient started noticing streaks of erythema that are traveling up to the lateral aspect of her arm. Due to increasing erythema pain and swelling he should presented to the emergency department. Hand surgery has seen the patient and performed exploration and incision and drainage of the involved area. Upon discussion with him it appears that patient had purulence into the joint and he would like for this to be treated as a septic joint. Upon further discussion with Dr. Lockhart it appears that she still has purulence despite exploration and debridement and antibiotics. Her current antibiotic regimen is Bactrim oral as well as clindamycin IV. I discussed with the patient her nature of allergy to penicillin to which she reported headache. This incident occurred 15 years back at which time she had another infection unsure that this headache was a part of the infectious disease process or goes up to intolerance to penicillin. Explained to the patient that given the acuity and seriousness of the infection she has I would recommend using penicillin which is the drug of choice. Patient asked me several questions about allergies and adverse reactions which I answered to her satisfaction. She agreed to a trial of penicillin or derivatives. ID is consulted for evaluation and management of septic arthritis of several MCP joints of her right hand. Overnight events reviewed No fever No rash No diarrhea tolerated Unasyn IV well. d/w : will treat as septic arthritis. Antibiotics Unasyn IV Lines Line sites with no e.o infection Past Medical History RA Lupus Anxiety / Depression / ADHD Appendectomy, bunion removal, total (partial hysterectomy), facial lift surgery Allergies: Coded Allergies: No Known Allergies (Verified Allergy, Unknown, 05/18/17) Objective . Vital Signs Date Time Temp Pulse Resp B/P (MAP) Pulse Ox O2 Delivery O2 Flow Rate FiO2 05/19/17 03:51 96.7 63 18 140/63 (88) 97 05/19/17 00:00 97.2 67 20 147/69 (95) 96 05/18/17 19:41 71 05/18/17 16:00 97.0 72 18 138/65 (89) 98 05/19/17 05/19/17 05/20/17 15:00 23:00 07:00 Intake Total 868 ml Balance 868 ml IV Total 868 ml . Microbiology Date/Time Source Procedure Growth Status 05/16/17 16:41 Wound Hand Fungal Smear - Final NO FUNGAL ELEMENTS SEEN. Resulted 05/16/17 16:41 Wound Hand Fungal Culture Pending Resulted 05/16/17 16:41 Wound Hand Acid Fast Stain - Final NO ACID FAST BACILLI SEEN Resulted 05/16/17 16:41 Wound Hand Mycobacterial Culture Pending Resulted 05/16/17 16:41 Wound Hand Gram Stain - Final Complete 05/16/17 16:41 Wound Hand Wound Culture - Final NO GROWTH IN 72 HRS.--AEROBICALLY OR ... Complete 05/16/17 16:40 Wound Finger Fungal Smear - Final NO FUNGAL ELEMENTS SEEN. Resulted 05/16/17 16:40 Wound Finger Fungal Culture Pending Resulted 05/16/17 16:40 Wound Finger Acid Fast Stain - Final NO ACID FAST BACILLI SEEN Resulted 05/16/17 16:40 Wound Finger Mycobacterial Culture Pending Resulted 05/16/17 16:40 Wound Finger Gram Stain - Final Complete 05/16/17 16:40 Wound Finger Wound Culture - Final NO GROWTH IN 72 HRS.--AEROBICALLY OR ... Complete Imaging Last Impressions Hand X-Ray 05/14/17 0000 Signed Impressions: Service Date/Time: Sunday, May 14, 2017 17:05 - CONCLUSION: 1. No acute fracture or dislocation. No radiopaque foreign bodies or significance subcutaneous emphysema. Augustine Bozorgmanesh, MD Physical Exam GENERAL: This is a well-nourished, well-developed patient, in no apparent distress. SKIN: No rashes, ecchymoses or lesions. Cool and dry. HEAD: Atraumatic. Normocephalic. No temporal or scalp tenderness. EYES: Pupils equal round and reactive. Extraocular motions intact. No scleral icterus. No injection or drainage. ENT: Nose without bleeding, purulent drainage or septal hematoma. Throat without erythema, tonsillar hypertrophy or exudate. Uvula midline. Airway patent. NECK: Trachea midline. Supple, nontender, no meningeal signs. CARDIOVASCULAR: HS audible. RESPIRATORY: Clear to auscultation. Breath sounds equal bilaterally. GASTROINTESTINAL: Abdomen soft, non-tender, nondistended. MUSCULOSKELETAL: Right hand with surgical site. Suture line still with some faint yellowish to clear drainage. NEUROLOGICAL: Awake and alert. Gross exam normal. Psych cooperative. IV line sites with no e.o infection. Assessment & Plan Remarks Dog bite related infected tenosynovitis Septic arthritis (Partially treated with Doxy and flagyl as outpt prior to surgery) Rheumatoid arthritis. Lupus on Plaquanil. Nausea/vomiting on Flagyl oral. Non response to oral antibiotics. Penicillin intolerance: headache 15 yrs back. Allergy section updated. Recs: Continue Unasyn IV Follow cultures follow clinically d/w patient and CM Unasyn IV infusions every 8 hours. Patient has a right hand infection. Would like to get Insurance approval for mid day Unasyn IV infusion and the other two infusions her son can help her with. D.w : treat with IV as septic arthritis. Dw about DC plan. Please let me know if above plan is approved by insurance or not so I can provide other alternatives. Patient was intolerant to Flagyl so cannot use Flagyl and Ceftriaxone IV once a day option. Lucero Santos MD May 19, 2017 15:27
[2017-05-19 16:00] VITALS: BP 134/59; PULSE 68; RESP 16; TEMP 99.6; O2SAT 96
[2017-05-19 20:00] VITALS: BP 158/71; PULSE 65; RESP 18; TEMP 97; O2SAT 96
--- NOTE | 2017-05-19 20:24 | HHI.FF ---
Face to Face Verification Diagnosis: (1) septic arthritis Metacarpophalangeal joint right index finger Physical Therapy Order: Evaluate and Treat Occupational Therapy Order: Evaluate and Treat, Gross motor coordination Home Health Nursing Order: Medical education Signs/symptoms of disease process Wound care and dressing changes Nursing assessment with vital signs IV medication administration Screening Technician Order: To Evaluate: Support services Order: To Provide: Community services I have seen patient Salvador Ramos on 05/19/17. My clinical findings support the need for the requested home health care services because: Infection w/ risk of complications Injectable med education/admin I certify that my clinical findings support that this patient is homebound because: Post-op weakness Apolinar Jones MD, R1 May 19, 2017 20:24
--- NOTE | 2017-05-19 22:53 | HHI.FPPN ---
Subjective Remarks Attending note: Patient seen with the resident team. Patient feels like her hand is less swollen, is able to flex her fingers more freely and may have some slight increase in strength. Reviewed her clinical status with the patient. No new complaints. Objective Vitals Vital Signs Date Time Temp Pulse Resp B/P (MAP) Pulse Ox O2 Delivery O2 Flow Rate FiO2 05/19/17 20:00 97.0 65 18 158/71 (100) 96 05/19/17 16:00 99.6 68 16 134/59 (84) 96 05/19/17 12:00 96.3 66 16 145/71 (95) 97 05/19/17 08:00 96.3 64 16 135/63 (87) 97 05/19/17 03:51 96.7 63 18 140/63 (88) 97 05/19/17 00:00 97.2 67 20 147/69 (95) 96 I/O 05/18/17 05/18/17 05/18/17 05/19/17 05/19/17 05/19/17 07:00 15:00 23:00 07:00 15:00 23:00 Intake Total 770 ml 2000 ml 820 ml 868 ml 820 ml Output Total 25 ml 3 ml Balance 745 ml 2000 ml 817 ml 868 ml 820 ml Intake Oral 720 ml 2000 ml 720 ml 720 ml IV Total 50 ml 100 ml 868 ml 100 ml Output Urine Total 3 ml Gastric Drainage Total 25 ml # Voids 2 7 4 # Bowel Movements 0 1 1 1 Result Diagram: 05/16/1731 05/16/1731 Objective Remarks General: Healthy middle-aged woman, normal affect, good eye contact. Vital signs noted. Afebrile. HEENT: Normocephalic grossly nonlocalizing. CV: Normal S1 and S2. RRR, no murmur Lungs: Clear to auscultation. Abdomen: Soft, nontender, nondistended, no masses or organomegaly. Extremities: Notable for supple calves, feet are warm and dry. Attention to the right hand when the patient expresses the wound does show approximately 3 cm area with some slight serous drainage and sutures in place, soft tissue swelling over the dorsum of the hand. Patient is able to flex and extend digits. A/P Assessment and Plan 56 y/o female with a PMHx of ADHD, rheumatoid arthritis, and systemic lupus erythematous slowly improving after significant dog bite with a dog that is well -known to the patient, up-to-date with immunizations. Wound is to have some serous drainage, continue current therapy and discussed with hand surgery. Discharge Planning Discharge is pending recommendations of hand surgeon Problem List: (1) Dog bite of right hand with infection ICD Codes: S61.451A - Open bite of right hand, initial encounter; L08.9 - Local infection of the skin and subcutaneous tissue, unspecified; W54.0XXA - Bitten by dog, initial encounter Plan: Postop day 2 from emergent exploration, wash, debridement of right hand. Symptoms improved significantly with broad-spectrum antibiotics Discussed with the patient about her treatment course, and pain control We'll follow-up pending recommendations of hand surgeon -wound cx no growth 48hrs -ID consulted Tetanus vaccine was given (2) Rheumatoid arthritis ICD Codes: M06.9 - Rheumatoid arthritis, unspecified Status: Chronic Plan: Controlled at this time We'll continue patient's home medication (3) ADHD (attention deficit hyperactivity disorder) ICD Codes: F90.9 - Attention-deficit hyperactivity disorder, unspecified type Status: Chronic Plan: Controlled at this time Continue patient home regiment (4) Depression ICD Codes: F32.9 - Major depressive disorder, single episode, unspecified Status: Chronic Plan: Having some insomnia, but denies depressive symptoms. Treat insomnia with melatonin 5 mg as needed for sleep. (5) Nutrition, metabolism, and development symptoms ICD Codes: R63.8 - Other symptoms and signs concerning food and fluid intake Plan: Fluids: Continue IV hydration DVT ppx: Ambulatory, SCDs. GI ppx: not indicated. Nutrition: Regular diet Problem Qualifiers (1) Dog bite of right hand with infection: Qualified Codes: S61.451A - Open bite of right hand, initial encounter; L08.9 - Local infection of the skin and subcutaneous tissue, unspecified; W54.0XXA - Bitten by dog, initial encounter Carlos Klein MD May 19, 2017 22:53
[2017-05-20] VITALS: BP 152/70; PULSE 62; RESP 18; TEMP 95.8; O2SAT 96
[2017-05-20] MEDS: AMPICILLIN-SULBACTAM INJ 1,500 MG in SODIUM CHLORIDE 0.9% INJ 100 ML IV SCH ×4 (00:06→18:08)
[2017-05-20] MEDS: IBUPROFEN 600 MG TAB PO SCH ×5 (00:06→21:48)
[2017-05-20] MEDS: ACETAMINOPHEN/HYDROcodone 325 MG/5 MG TAB PO PRN ×4 (01:46→18:08)
--- NOTE | 2017-05-20 02:16 | HHI.FPPN ---
Subjective Remarks NOTE ENTERED ON INCORRECT DATE. DATE OF NOTE IS 05/19/17 Patient seen and examined bedside today. She denies any acute changes overnight. He has been tolerating her antibiotics without any adverse reactions. She is getting bored in her bed and will like to know when she can go home and with the plan is. She has 1 small area on the dorsum of her hand that is numb, otherwise she has complete sensation and motor skills. Her pain is well controlled on her current medications. She denies any fever/chills. Denies any chest pain/shortness of breath/dizziness. Objective Vitals Vital Signs Date Time Temp Pulse Resp B/P (MAP) Pulse Ox O2 Delivery O2 Flow Rate FiO2 05/19/17 20:00 97.0 65 18 158/71 (100) 96 05/19/17 16:00 99.6 68 16 134/59 (84) 96 05/19/17 12:00 96.3 66 16 145/71 (95) 97 05/19/17 08:00 96.3 64 16 135/63 (87) 97 05/19/17 03:51 96.7 63 18 140/63 (88) 97 I/O 05/19/17 05/19/17 05/19/17 05/20/17 05/20/17 05/20/17 07:00 15:00 23:00 07:00 15:00 23:00 Intake Total 820 ml 868 ml 820 ml Output Total 3 ml Balance 817 ml 868 ml 820 ml Intake Oral 720 ml 720 ml IV Total 100 ml 868 ml 100 ml Output Urine Total 3 ml # Voids 4 # Bowel Movements 1 1 Result Diagram: 05/16/17 0831 05/16/17 0831 Objective Remarks General: Healthy middle-aged woman, normal affect, good eye contact. Vital signs noted. Afebrile. HEENT: Normocephalic grossly nonlocalizing. CV: Normal S1 and S2. RRR, no murmur Lungs: Clear to auscultation. Abdomen: Soft, nontender, nondistended, no masses or organomegaly. Extremities: Notable for supple calves, feet are warm and dry. R hand wrapped in bandage with sutures. No erythema or marked swelling. Patient is able to flex and extend digits. A/P Assessment and Plan 56 y/o female with a PMHx of ADHD, rheumatoid arthritis, and systemic lupus erythematous slowly improving after significant dog bite with a dog that is well -known to the patient, up-to-date with immunizations. Hand surgery and infectious disease consultation Discharge Planning Discharge is pending recommendations of hand surgeon Problem List: (1) Dog bite of right hand with infection ICD Codes: S61.451A - Open bite of right hand, initial encounter; L08.9 - Local infection of the skin and subcutaneous tissue, unspecified; W54.0XXA - Bitten by dog, initial encounter Plan: Postop day 3 from emergent exploration, wash, debridement of right hand. Symptoms improved significantly with broad-spectrum antibiotics Discussed with the patient about her treatment course, and pain control We'll follow-up pending recommendations of hand surgeon -wound cx no growth 48hrs -ID consulted: Cont Unsayn,, waiting for insurance approval Tetanus vaccine was given (2) Rheumatoid arthritis ICD Codes: M06.9 - Rheumatoid arthritis, unspecified Status: Chronic Plan: Controlled at this time We'll continue patient's home medication (3) ADHD (attention deficit hyperactivity disorder) ICD Codes: F90.9 - Attention-deficit hyperactivity disorder, unspecified type Status: Chronic Plan: Controlled at this time Continue patient home regiment (4) Depression ICD Codes: F32.9 - Major depressive disorder, single episode, unspecified Status: Chronic Plan: Having some insomnia, but denies depressive symptoms. Treat insomnia with melatonin 5 mg as needed for sleep. (5) Nutrition, metabolism, and development symptoms ICD Codes: R63.8 - Other symptoms and signs concerning food and fluid intake Plan: Fluids: Continue IV hydration DVT ppx: Ambulatory, SCDs. GI ppx: not indicated. Nutrition: Regular diet Problem Qualifiers (1) Dog bite of right hand with infection: Qualified Codes: S61.451A - Open bite of right hand, initial encounter; L08.9 - Local infection of the skin and subcutaneous tissue, unspecified; W54.0XXA - Bitten by dog, initial encounter Zenaida Johnson MD R2 May 20, 2017 02:16
[2017-05-20 04:00] VITALS: BP 140/63; PULSE 66; RESP 18; TEMP 97.2; O2SAT 95
[2017-05-20] MEDS: HYDROXYCHLOROQUINE SULFATE 200 MG TAB PO SCH ×2 (07:50→21:48)
[2017-05-20] MEDS: SODIUM CHLORIDE 0.9% FLUSH 10 ML FLUSH IV FLUSH SCH ×2 (07:50→21:49)
[2017-05-20 08:00] VITALS: BP 151/68; PULSE 59; RESP 16; TEMP 96.8; O2SAT 95
[2017-05-20 12:00] VITALS: BP 139/72; PULSE 70; RESP 16; TEMP 97.1; O2SAT 94
--- NOTE | 2017-05-20 14:51 | HHI.FPPN ---
Subjective Remarks Patient seen and examined at bedside. No acute events overnight. Patient states her pain is well controlled, rate 4/10. Pt reports improvement in range of motion of right hand. Denies CP, SOB, nausea or vomiting. Good po intake. Objective Vitals Vital Signs Date Time Temp Pulse Resp B/P (MAP) Pulse Ox O2 Delivery O2 Flow Rate FiO2 05/20/17 12:00 97.1 70 16 139/72 (94) 94 05/20/17 08:00 96.8 59 16 151/68 (95) 95 05/20/17 04:00 97.2 66 18 140/63 (88) 95 05/20/17 00:00 95.8 62 18 152/70 (97) 96 05/20/17 00:00 62 05/19/17 20:00 97.0 65 18 158/71 (100) 96 05/19/17 16:00 99.6 68 16 134/59 (84) 96 I/O 05/19/17 05/19/17 05/19/17 05/20/17 05/20/17 05/20/17 07:00 15:00 23:00 07:00 15:00 23:00 Intake Total 820 ml 868 ml 820 ml Output Total 3 ml Balance 817 ml 868 ml 820 ml Intake Oral 720 ml 720 ml IV Total 100 ml 868 ml 100 ml Output Urine Total 3 ml # Voids 4 # Bowel Movements 1 1 Result Diagram: 05/16/1731 05/16/17 0831 Objective Remarks General: Well nourished, well-developed female in NAD Vital signs noted. Afebrile. HEENT: Normocephalic grossly nonlocalizing. CV: Normal S1 and S2. RRR, no murmur Lungs: Clear to auscultation. Abdomen: Soft, nontender, nondistended, no masses or organomegaly. Extremities: Notable for supple calves, feet are warm and dry. R hand wrapped in bandage with sutures. No erythema or marked swelling. Patient is able to flex and extend digits. +2 radial pulse on Right hand. Bandages were unwrapped and laceration appears to be healing well, no fluctuance or pus noted on palpation of rounding area. Clean dressing ordered. A/P Assessment and Plan 56 y/o female with a PMHx of ADHD, rheumatoid arthritis, and systemic lupus erythematous slowly improving after significant dog bite with a dog that is well -known to the patient, up-to-date with immunizations. Hand surgery and infectious disease consultation Discharge Planning Anticipate discharge tomorrow pending home health arrangements for scheduled doses of IV antibiotic medications Problem List: (1) Dog bite of right hand with infection ICD Codes: S61.451A - Open bite of right hand, initial encounter; L08.9 - Local infection of the skin and subcutaneous tissue, unspecified; W54.0XXA - Bitten by dog, initial encounter Plan: Postop day 4 from emergent exploration, wash, debridement of right hand. Pt afebrile, VS WNL -Tetanus vaccine was given -wound cx no growth 72hrs -ID consulted: Cont IV Unsayn PICC line order placed (2) Rheumatoid arthritis ICD Codes: M06.9 - Rheumatoid arthritis, unspecified Status: Chronic Plan: Controlled at this time We'll continue patient's home medication (3) ADHD (attention deficit hyperactivity disorder) ICD Codes: F90.9 - Attention-deficit hyperactivity disorder, unspecified type Status: Chronic Plan: Controlled at this time Continue patient home regiment (4) Depression ICD Codes: F32.9 - Major depressive disorder, single episode, unspecified Status: Chronic Plan: denies depressive symptoms. Treat insomnia with melatonin 5 mg as needed for sleep. (5) Nutrition, metabolism, and development symptoms ICD Codes: R63.8 - Other symptoms and signs concerning food and fluid intake Plan: Fluids: not indicated at this time Nutrition: Regular diet DVT ppx: Ambulatory, SCDs. GI ppx: not indicated. Problem Qualifiers (1) Dog bite of right hand with infection: Qualified Codes: S61.451A - Open bite of right hand, initial encounter; L08.9 - Local infection of the skin and subcutaneous tissue, unspecified; W54.0XXA - Bitten by dog, initial encounter Apolinar Jones MD, R1 May 20, 2017 14:51
--- NOTE | 2017-05-20 15:39 | HHI.PR ---
Addendum to Inpatient Note Addendum Reason: Additional Documentation Additional Information I was informed just now about the patients insurance accepting the antibiotic choice. Also home health will be available in the morning. Patient is receiving Unasyn IV now and next dose is approx 11 pm tonight. Expect discharge in am based on Unasyn dosing tonight. Lucero Santos MD May 20, 2017 15:39
[2017-05-20 16:00] VITALS: BP 140/71; PULSE 74; RESP 16; TEMP 98.5; O2SAT 94
[2017-05-20 20:00] VITALS: BP 154/82; PULSE 66; RESP 18; TEMP 96.6; O2SAT 93
[2017-05-20] MEDS: oxyCODONE/ACETAMINOPHEN 10 MG/325 MG TAB PO PRN (21:49)
[2017-05-21 00:05] VITALS: BP 138/61; PULSE 68; RESP 18; TEMP 96.7; O2SAT 96
[2017-05-21] MEDS: AMPICILLIN-SULBACTAM INJ 1,500 MG in SODIUM CHLORIDE 0.9% INJ 100 ML IV SCH ×2 (00:46→05:50)
[2017-05-21 04:13] VITALS: BP 137/74; PULSE 61; RESP 18; TEMP 96; O2SAT 97
[2017-05-21] MEDS: IBUPROFEN 600 MG TAB PO SCH ×2 (05:48→09:36)
[2017-05-21] MEDS: ACETAMINOPHEN/HYDROcodone 325 MG/5 MG TAB PO PRN ×2 (05:50→09:36)
[2017-05-21 08:00] VITALS: BP 119/58; PULSE 60; RESP 16; TEMP 96.8; O2SAT 94
[2017-05-21] MEDS: SODIUM CHLORIDE 0.9% FLUSH 10 ML FLUSH IV FLUSH SCH (09:00)
[2017-05-21] MEDS ORDERED: LACTOBACILLUS ACIDOPHILUS TAB PO SCH (09:00)
[2017-05-21] MEDS: HYDROXYCHLOROQUINE SULFATE 200 MG TAB PO SCH (09:35)
--- NOTE | 2017-05-21 10:58 | HHI.FPPN ---
Subjective Remarks Patient seen and examined at bedside. No acute events overnight. Pt states pain is well controlled. Pt awaiting to have picc line placement to be done today. No other complaints. Objective Vitals Vital Signs Date Time Temp Pulse Resp B/P (MAP) Pulse Ox O2 Delivery O2 Flow Rate FiO2 05/21/17 08:00 96.8 60 16 119/58 (78) 94 05/21/17 08:00 60 05/21/17 04:13 96.0 61 18 137/74 (95) 97 05/21/17 00:05 96.7 68 18 138/61 (86) 96 05/20/17 20:00 96.6 66 18 154/82 (106) 93 05/20/17 16:00 98.5 74 16 140/71 (94) 94 05/20/17 12:00 97.1 70 16 139/72 (94) 94 I/O 05/20/17 05/20/17 05/20/17 05/21/17 05/21/17 05/21/17 07:00 15:00 23:00 07:00 15:00 23:00 Intake Total 100 ml 720 ml 960 ml Balance 100 ml 720 ml 960 ml Intake Oral 620 ml 760 ml IV Total 100 ml 100 ml 200 ml # Voids 4 4 # Bowel Movements 1 Objective Remarks General: Well nourished, well-developed female in NAD Vital signs noted. Afebrile. HEENT: Normocephalic grossly nonlocalizing. CV: Normal S1 and S2. RRR, no murmur Lungs: Clear to auscultation. Abdomen: Soft, nontender, nondistended, no masses or organomegaly. Extremities: Notable for supple calves, feet are warm and dry. R hand wrapped in bandage with sutures. No erythema or marked swelling. Patient is able to flex and extend digits. +2 radial pulse on Right hand. Pt still complains of numbness distal to laceration. A/P Assessment and Plan 56 y/o female with a PMHx of ADHD, rheumatoid arthritis, and systemic lupus erythematous slowly improving after significant dog bite with a dog that is well -known to the patient, up-to-date with immunizations. Hand surgery and infectious disease consultation Discharge Planning Anticipate discharge today pending picc line placement and home health arrangements for scheduled doses of IV antibiotic medications Problem List: (1) Dog bite of right hand with infection ICD Codes: S61.451A - Open bite of right hand, initial encounter; L08.9 - Local infection of the skin and subcutaneous tissue, unspecified; W54.0XXA - Bitten by dog, initial encounter Plan: Postop day from emergent exploration, wash, debridement of right hand. Pt afebrile, VS WNL -Tetanus vaccine was given -wound cx no growth 72hrs -ID consulted: Cont IV Unsayn PICC line order placed on 05/20 (2) Rheumatoid arthritis ICD Codes: M06.9 - Rheumatoid arthritis, unspecified Status: Chronic Plan: Controlled at this time We'll continue patient's home medication (3) ADHD (attention deficit hyperactivity disorder) ICD Codes: F90.9 - Attention-deficit hyperactivity disorder, unspecified type Status: Chronic Plan: Controlled at this time Continue patient home regiment (4) Depression ICD Codes: F32.9 - Major depressive disorder, single episode, unspecified Status: Chronic Plan: denies depressive symptoms. Treat insomnia with melatonin 5 mg as needed for sleep. (5) Nutrition, metabolism, and development symptoms ICD Codes: R63.8 - Other symptoms and signs concerning food and fluid intake Plan: Fluids: not indicated at this time Electrolytes: WNL, replete as needed Nutrition: Regular diet DVT ppx: Ambulatory, SCDs. GI ppx: not indicated. Problem Qualifiers (1) Dog bite of right hand with infection: Qualified Codes: S61.451A - Open bite of right hand, initial encounter; L08.9 - Local infection of the skin and subcutaneous tissue, unspecified; W54.0XXA - Bitten by dog, initial encounter Apolinar Jones MD, R1 May 21, 2017 10:58
--- NOTE | 2017-05-21 11:03 | RADRPT ---
EXAM DATE/TIME: 05/21/2017 10:21 [facility] COMPARISON: No previous studies available for comparison. INDICATIONS : Post PICC line placement. MEDICAL HISTORY : Gastroesophageal reflux disease. Rheumatoid arthritis. Sleep apnea. Vertigo. Pelvic fracture. Sandra pus. SURGICAL HISTORY : Appendectomy. Hysterectomy. Colectomy. Bilatera feet. ENCOUNTER: Initial ACUITY: 1 day PAIN SCORE: 0/10 LOCATION: Left chest FINDINGS: A single view of the chest demonstrates the lungs to be symmetrically aerated without evidence of mas s, infiltrate or effusion. The cardiomediastinal contours are unremarkable. Osseous structures are intact. CONCLUSION: Normal examination. The PICC line is placed from a left-sided approach. The line extends across midli ne and then coils within the right brachiocephalic vein and possibly the lower SVC. Its tip overlies the SVC. Librado Heard MD on May 21, 2017 at 10:59 Board Certified Radiologist. This report was verified electronically.
[2017-05-21 12:00] VITALS: BP 159/72; PULSE 67; RESP 17; TEMP 96.9; O2SAT 96
[2017-05-21] MEDS ORDERED: SODIUM CHLORIDE 0.9% FLUSH 10 ML FLUSH IV FLUSH PRN (12:00)
--- NOTE | 2017-05-21 13:26 | RADRPT ---
EXAM DATE/TIME: 05/21/2017 13:04 [facility] COMPARISON: CHEST SINGLE AP, May 21, 2017, 10:21. INDICATIONS : PICC line adjustment. MEDICAL HISTORY : Gastroesophageal reflux disease. Rheumatoid arthritis. Sleep apnea. Vertigo. Pelvic fracture. Lupus. SURGICAL HISTORY : Appendectomy. Hysterectomy. Colectomy. ENCOUNTER: Subsequent ACUITY: 1 day PAIN SCORE: 0/10 LOCATION: Bilateral chest FINDINGS: Portable AP view of the chest demonstrates a normal-sized cardiac silhouette. Left upper extremity PI CC distal tip is at the cavoatrial junction or superior aspect of the right atrium. There is motion a rtifact at the lung bases with possible atelectasis. No pneumothorax is identified. CONCLUSION: Distal tip of the PICC is either in the right atrium or near the cavoatrial junction. Deangelo Garcia MD on May 21, 2017 at 13:22 Board Certified Radiologist. This report was verified electronically.
--- NOTE | 2017-05-21 14:14 | HHI.DCPOC ---
Discharge Care Plan Diagnosis: (1) Dog bite of right hand with infection (2) Lupus (3) Rheumatoid arthritis (4) septic arthritis Metacarpophalangeal joint right index finger Goals to Promote Your Health * To prevent worsening of your condition and complications * To maintain your health at the optimal level Directions to Meet Your Goals Take your medications as prescribed Follow your dietary instruction Follow activity as directed Keep your appointments as scheduled Take your immunizations and boosters as scheduled If your symptoms worsen call your PCP, if no PCP go to Urgent Care Center or Emergency Room Smoking is Dangerous to Your Health. Avoid second hand smoke Call the 24-hour hour crisis hotline for domestic abuse at Apolinar Jones MD, R1 May 21, 2017 14:14
[2017-05-22] MEDS ORDERED: SODIUM CHLORIDE 0.9% FLUSH 10 ML FLUSH IV FLUSH SCH (09:00)
[2017-05-23] MEDS ORDERED: NORC5TAB PO (13:46)
== END 2017-05-21 15:00 | disposition home health service (06) | DRG 514 ==
LOC: NEPC 16:03 → INTOOBSV 21:13 → NEDA 21:13 → UNDOADMIN 21:17 → NEDA 21:17 → OBSVTOIN 21:31 → NEPHCDU 22:14 → N07B 05-16 16:01
PROVIDERS: ADMIT Family Medicine; ATTEND Family Medicine
PROC: 0J9J0ZZ Drainage of Right Hand Subcutaneous Tissue and Fascia, Open Approach (ICD-10-PCS; 2017-05-16)
PROC: 0MD Bursae and Ligaments, Extraction (ICD-10-PCS; principal; 2017-05-16 16:14)
DX: M00.9 Pyogenic arthritis, unspecified (principal); M32.9 Systemic lupus erythematosus, unspecified; L08.9 Local infection of the skin and subcutaneous tissue, unspecified; F32.9 Major depressive disorder, single episode, unspecified; M06.9 Rheumatoid arthritis, unspecified; S61.451A Open bite of right hand, initial encounter; F41.9 Anxiety disorder, unspecified; F90.9 Attention-deficit hyperactivity disorder, unspecified type; G47.00 Insomnia, unspecified; M65.9 Synovitis and tenosynovitis, unspecified; G47.30 Sleep apnea, unspecified; K21.9 Gastro-esophageal reflux disease without esophagitis; R20.0 Anesthesia of skin; Z88.0 Allergy status to penicillin; W54.0XXA Bitten by dog, initial encounter
CPT/HCPCS: 71045; 73130; 80048; 80053; 82948; 83605; 85025; 85652; 86140; 87015; 87070; 87102; 87116; 87205; 87206; 88305; 93005; 99285; J0295; J0744; J1100; J1170; J1885; J2270; J2405; J2550; J3010; J7030

== ENCOUNTER → 2017-08-29 | Outpatient (CLI) | payer OTHER ==
[~2017-08-29] MED LIST changes: -DOXY100C PO; +EPIN1INJ21 IV PUSH; +EPIN1INJ21 SQ; -METR1TAB76 PO; +NORC5TAB PO; +SOLU250I IV PUSH; +UNAS3INJ IV
--- NOTE | 2017-08-29 14:14 | RADRPT ---
EXAM DATE/TIME: 08/29/2017 13:42 [facility] COMPARISON: CT THORAX W/O CONTRAST, November 30, 2016, 20:02. INDICATIONS : Evaluate for lung nodule. RADIATION DOSE: 7.17 CTDIvol (mGy) MEDICAL HISTORY : Chronic obstructive pulmonary disease. SURGICAL HISTORY : Hysterectomy. Appendectomy.Cholecystectomy. ENCOUNTER: Initial ACUITY: 1 day PAIN SCALE: 0/10 LOCATION: chest TECHNIQUE: Volumetric scanning of the chest was performed. Using automated exposure control and adjustment of t he mA and/or kV according to patient size, radiation dose was kept as low as reasonably achievable to obtain optimal diagnostic quality images. DICOM format image data is available electronically for r eview and comparison. Follow-up recommendations for detected pulmonary nodules are based at a minimum on nodule size and pa tient risk factors according to Fleischner Society Guidelines. FINDINGS: LUNGS: There is no consolidation or pneumothorax. No concerning pulmonary nodule is visualized. Densely annabel cified granuloma right middle lobe PLEURAE: There is no pleural thickening or pleural effusion. MEDIASTINUM: The heart and great vessels demonstrate no acute abnormality. There is no mediastinal or hilar lymph adenopathy. AXILLAE: Within normal limits. No lymphadenopathy. MUSCULOSKELETAL: Within normal limits for patient age. MISCELLANEOUS: The visualized upper abdominal organs demonstrate no acute abnormality. CONCLUSION: Normal examination. Granuloma right middle lobe. A few granuloma in the right hilum and subcarinal r alejandra Heard MD on August 29, 2017 at 14:10 Board Certified Radiologist. This report was verified electronically.
--- NOTE | 2017-09-02 10:29 | RSPPFT ---
DATE OF PROCEDURE: 08/29/17 COMMENTS: Spirometry is within normal limits. Post-bronchodilator study demonstrated no significant change. Lung volumes are normal. Diffusion capacity is within normal limits. Flow volume loops appear unremarkable. IMPRESSION: 1. Essentially normal pulmonary function study. 2. No significant change following use of bronchodilator. 3. Normal diffusion capacity.
== END ==
LOC: HRSP 12:21
PROVIDERS: ATTEND Internal Medicine Pulmonary Disease
DX: J44.9 Chronic obstructive pulmonary disease, unspecified (principal)
CPT/HCPCS: 71250; 94060; 94726; 94729